=== PATIENT | male | born 1995 | race Hispanic/Latino ===

== ENCOUNTER 2018-07-02 23:18 | Emergency (ER) | payer SELFPAY ==
--- OUTSIDE RECORDS SUMMARY | 2018-07-02 23:21 | XMS REPORT | Summary of Care ---
:1995 Author Encounter [facility] Pedrito(SERGEY) [id number] Date(s): 11/04/14 - 11/05/[address] Professional Services provided by [facility] [place] [address]- Discharge Disposition: Not Seen Physician Attending: Vin Bush MD Vital Signs Most recent to oldest [Reference Range]: 1 Height 170.18 cm (11/04/14 6:43 PM) Temperature Oral [96.4-99.1 DegF] 98.1 DegF (11/04/14 6:43 PM) Blood Pressure [90-140/60-90 mmHg] 123/74 mmHg (11/04/14 6:43 PM) Respiratory Rate [14-20 BRMIN] 18 BRMIN (11/04/14 6:43 PM) Peripheral Pulse Rate [60-100 bpm] 101 bpm *HI* (11/04/14 6:43 PM) Weight 59.091 kg (11/04/14 6:43 PM) Body Mass Index 20.4 m2 (11/04/14 6:43 PM) Problem List Condition Effective Dates Status Health Status Informant Diabetes mellitus(Confirmed) Resolved Allergies, Adverse Reactions, Alerts Substance Reaction Severity Status NKDA Active Medications No data available for this section Results No data available for this section Immunizations No data available for this section Procedures No data available for this section Social History No data available for this section Assessment and Plan No data available for this section
--- OUTSIDE RECORDS SUMMARY | 2018-07-02 23:21 | XMS REPORT | Continuity of Care Document ---
:1995 Author Organization Interface Problems Problem Status Onset Classification Date Comments Source Date Reported HYPERGLYCEMIA Active 05/19/20 [facility] INTRACTABLE Active 05/19/20 ABDOMINAL PAIN, [address] [place] [address] LEUKOCYTOSIS LWBS Active 11/05/[address] HYPERGLYCEMIA, Active 03/05/20 KETOSIS W/O 13 [facility] ACIDOSIS HIGH BLOOD SUGAR Active 03/05/20 13 [facility] Diabetes Resolved Problem 05/22/2017 [facility], [place] UNSPECIFIED Active ABDOMINAL PAIN [facility] ELEVATED WHITE Active BLOOD CELL [facility] COUNT, UNSPECI HYPERGLYCEMIA, Active UNSPECIFIED [facility] Medications Medication Details Route Status Patient Ordering Order Source Instructions Provider Date Metronidazole 500 mg=1 tab, Active 500 MG Oral PO, Q8H, X 7 2016 [facility] Tablet [Flagyl] day, # 21 tab, 0 Refill(s) ciprofloxacin 500 mg=1 tab, Active 500 mg oral PO, Q12H, X 7 2016 [facility] tablet day, # 14 tab, 0 Refill(s) Ativan 1 mg, 1 tab, Inactive Route: PO, 2016 [facility] Drug form: TAB, TID, Dosing Weight 49.545, kg, PRN Anxiety, Start date: 05/19/17 11:50:00 MANAGER SQL, Duration: 30 day, Stop date: 06/18/17 11:49:00 CSTNotes: (Same as: Ativan) morphine Sulfate 4 mg, 1 mL, Inactive Route: IV, 2016 [facility] Drug form: SOLN, ONCE, Start date: 05/19/17 10:22:00 MANAGER SQL, Stop date: 05/19/17 10:22:00 CSTNotes: (Same as:MORPhine Sulfate) Morphine 2 mg, 1 mL, Inactive Route: IVP, 2016 [facility] Drug form: SOLN, Q2H, Dosing Weight 49.545, kg, PRN Pain Score 7-10, Start date: 05/19/17 9:58:00 MANAGER SQL, Duration: 30 day, Stop date: 06/18/17 9:57:00 MANAGER SQL Dilaudid 0.5 mg, Route: Inactive IVP, ONCE, 2016 [facility] Dosing Weight 49.545, kg, Priority: STAT, Start date: 05/19/17 9:58:00 MANAGER SQL, Stop date: 05/19/17 9:58:00 MANAGER SQL Promethazine 12.5 mg, 1 Inactive tab, Route: 2016 [facility] PO, Drug form: TAB, Q6H, Dosing Weight 49.545, kg, PRN Nausea & Vomiting, Start date: 05/19/17 9:58:00 MANAGER SQL, Duration: 30 day, Stop date: 06/18/17 9:57:00 CSTNotes: (Same as: Phenergan) Zosyn 3.375 gm, Inactive Route: IVPB, 2016 [facility] [id number], Dosing Weight 49.545, kg, Start date: 05/19/17 8:00:00 MANAGER SQL, Duration: 7 day, Stop date: 05/26/17 0:00:00 MANAGER SQL, ABX Indication: Intra-abdomina l InfectionNotes : (Same as: Zosyn) Dosing based on Piperacillin component MEDICATION WASTE Product Size: 3375 mg Product Wasted: ___ mg Metoclopramide 10 mg=1 tab, Inactive 10 MG Oral PO, QID, # 28 2016 [facility] Tablet [Reglan] tab, 0 Refill(s) NovoLog 15 unit, Active SUB-Q, 2016 [facility] TID-Before Meals, 0 Refill(s) normal saline 1,000 mL, Inactive 0.9% IV 1,000 mL Rate: 120 2016 [facility] ml/hr, Infuse over: 8.3 hr, Route: IV, Dosing Weight 49.545 kg, Total Volume: 1,000, Start date: 05/19/17 7:48:00 MANAGER SQL, Duration: 30 day, Stop date: 06/18/17 7:47:00 MANAGER SQL, 1.53, m2 morphine Sulfate 6 mg, 3 mL, Inactive Route: PO, 2016 [facility] Drug form: SOLN, Q4H, PRN Pain Score 7-10, Start date: 05/19/17 7:04:00 MANAGER SQL, Duration: 30 day, Stop date: 06/18/17 7:03:00 CSTNotes: (Same as:MORPhine Sulfate) Insulin Glargine 30 unit, 0.3 Inactive 100 UNT/ML mL, Route: 2016 [facility] Injectable SUB-Q, Drug Solution form: SOLN, [Lantus] Daily, Dosing Weight 49.545, kg, Priority: NOW, Start date: 05/19/17 6:32:00 MANAGER SQL, Duration: 30 day, Stop date: 06/17/17 9:00:00 CSTNotes: (Same as: Lantus) Do not hold insulin without contacting prescriber WASTE: F/P - Black; E - Municipal Trash Bin "single patient use only" Saline Flush 10 ml, Route: Inactive 0.9% IVP, Drug 2016 [facility] Form: INJ, Dosing Weight 49.545, kg, PRN, PRN Line Flush, Start date: 05/19/17 6:31:00 MANAGER SQL, Duration: 30 day, Stop date: 06/18/17 6:30:00 CSTNotes: (Same as: BD Posiflush) Ondansetron 4 mg, 2 mL, Inactive Route: IVP, 2016 [facility] Drug form: INJ, Q6H, Dosing Weight 49.545, kg, PRN Nausea & Vomiting, Start date: 05/19/17 6:31:00 MANAGER SQL, Duration: 30 day, Stop date: 06/18/17 6:30:00 CSTNotes: (Same as: Zofran) MEDICATION WASTE Product Size: 4 mg Product Wasted: ___ mg Acetaminophen 2 tab, Route: Inactive 325 MG / PO, Drug Form: 2016 [facility] Hydrocodone TAB, Dosing Bitartrate 5 MG Weight 49.545, Oral Tablet kg, Q4H, PRN Pain Score 7-10, Start date: 05/19/17 6:31:00 MANAGER SQL, Duration: 30 day, Stop date: 06/18/17 6:30:00 CSTNotes: (Same as: Abie 325/5) Do not exceed 4gm/day of acetaminophen. Morphine 2 mg, Route: Inactive IVP, Q4H, 2016 [facility] Dosing Weight 49.545, kg, PRN Pain Score 7-10, Start date: 05/19/17 6:31:00 MANAGER SQL, Duration: 30 day, Stop date: 06/18/17 6:30:00 MANAGER SQL Sodium Chloride 1,000 mL, Inactive 0.9% IV 1,000 mL Rate: 125 2016 [facility] ml/hr, Infuse over: 8 hr, Route: IV, Dosing Weight 49.545 kg, Total Volume: 1,000, Start date: 05/19/17 6:31:00 MANAGER SQL, Duration: 30 day, Stop date: 06/18/17 6:30:00 MANAGER SQL, 1.53, m2 Insulin Lispro 2 unit, 0.02 Inactive mL, Route: 2016 [facility] SUB-Q, Drug form: SOLN, Bedtime, Dosing Weight 49.545, kg, PRN Blood Glucose Results, Start date: 05/19/17 6:31:00 MANAGER SQL, Duration: 30 day, Stop date: 06/18/17 6:30:00 CSTNotes: Roll in palms of hands gently; Do not shake `vigorously. (Same as: Humalog ) "Single Patient Use Only " WASTE: F/P - Black; E - Municipal Trash Bin Stable for 28 days at room temperature. Expires in days from Date Glucagon 1 mg, Route: Inactive IM, Drug form: 2016 [facility] PDR/INJ, PRN, Dosing Weight 49.545, kg, PRN Blood Glucose Results, Start date: 05/19/17 6:31:00 MANAGER SQL, Duration: 30 day, Stop date: 06/18/17 6:30:00 MANAGER SQL Dextrose 50% 25 gm, 50 mL, Inactive Syringe Route: IVP, 2016 [facility] Drug Form: INJ, Dosing Weight 49.545, kg, PRN, PRN Blood Glucose Results, Start date: 05/19/17 6:31:00 MANAGER SQL, Duration: 30 day, Stop date: 06/18/17 6:30:00 MANAGER SQL Lorazepam 1 mg, Route: Inactive IVP, Drug 2016 [facility] form: INJ, ONCE, Dosing Weight 49.545, kg, Priority: STAT, Start date: 05/19/17 5:52:00 MANAGER SQL, Stop date: 05/19/17 5:52:00 MANAGER SQL Morphine 4 mg, Route: Inactive IVP, ONCE, 2016 Dosing Weight 49.545, kg, Priority: STAT, Start date: 05/19/17 3:46:00 MANAGER SQL, Stop date: 05/19/17 3:46:00 MANAGER SQL Zofran 4 mg, Route: Inactive IVP, Drug 2016 [facility] form: INJ, ONCE, Dosing Weight 49.545, kg, Priority: STAT, Start date: 05/19/17 3:46:00 MANAGER SQL, Stop date: 05/19/17 3:46:00 MANAGER SQL Sodium Chloride 1,486.35 mL, Inactive 0.9% (Bolus) IV 2,000 ml/hr, 2016 [facility] Route: IV, ONCE, Priority: STAT, Dosing Weight 49.545 kg, Start date: 05/19/17 1:54:00 MANAGER SQL, Stop date: 05/19/17 1:54:00 MANAGER SQL, Sepsis dose. Allergies, Adverse Reactions, Alerts Substance Category Reaction Severity Reaction Status Date Comments Source type Reported Immunizations Immunization Date Given Site Status Last Updated Comments Source Results Order Name Results Value Reference Date Interpretation Comments Source Range DRUG U Phencyc Negative Negative 05/19 [facility] *NA* (05/19/17 12:41 PM) DRUG UDS Note See Note 05/19 [facility] (05/19/17 12:41 PM) DRUG U Benzodia Negative Negative 05/19 [facility] *NA* (05/19/17 12:41 PM) DRUG U Amph Scr Negative Negative 05/19 [facility] *NA* (05/19/17 12:41 PM) DRUG U Cat Scr Negative Negative 05/19 [facility] *NA* (05/19/17 12:41 PM) DRUG U Opiate Scr Positive Negative 05/19 [facility] *ABN* (05/19/17 12:41 PM) DRUG U Cannab Scr Positive Negative 05/19 [facility] *ABN* (05/19/17 12:41 PM) DRUG U Cocaine Negative Negative 05/19 SCREEN Scr [facility] *NA* (05/19/17 12:41 PM) URINE AND UA CaOx Michelle Occasional None Seen 05/19 STOOL /HPF /HPF [facility] URINE AND UA WBC null 0 - 5 05/19 [facility] URINE AND UA Leuk Est Negative Negative 05/19 [facility] (05/19/17 3:31 AM) URINE AND UA RBC 3 /HPF 0 - 2 05/19 [facility] URINE AND UA Nitrite Negative Negative 05/19 [facility] (05/19/17 3:31 AM) URINE AND UA Blood Negative Negative 05/19 [facility] (05/19/17 3:31 AM) URINE AND UA Bili Negative Negative 05/19 [facility] *NA* (05/19/17 3:31 AM) URINE AND UA Spec Grav 1.044 <=1.030 05/19 [facility] URINE AND UA Glucose 500 mg/dL Negative 05/19 [facility] mg/dL [facility] URINE AND UA Ketones Negative Negative 05/19 [facility] mg/dL mg/dL [facility] URINE AND UA pH 5.0 5.0 - 8.0 05/19 [facility] URINE AND UA Protein Negative Negative 05/19 [facility] mg/dL mg/dL [facility] URINE AND UA <=1.0 0.1 - 1.0 05/19 STOOL Urobilinogen mg/dL [facility] URINE AND UA Color Ltyellow 05/19 [facility] URINE AND UA Sq Epi None Seen 05/19 [facility] URINE AND UA Turbidity Clear Clear 05/19 [facility] (05/19/17 3:31 AM) Gallbladde Gallbladder Gallbladder scan HIDA wo meds NM 05/19 - r scan scan HIDA wo - [facility] HIDA wo meds NM meds NM CLINICAL HX: - bile leak?. Read by: Julien Daniel MD Dictated Date/time: 05/19/17 13:59 Electronically Signed by: Julien Daniel MD 05/19/17 14:02 FINAL REPORT COMPARISON: CT abdomen pelvis 05/19/2017 TECHNIQUE: 6 mCi of [id number] were administered intravenously and images obtained in anterior projection. IV Site: Right Antecubital FINDINGS: Image performed at 5 minutes and subsequently 2 images performed at 4 hours are submitted for review. The full dynamic images performed at every 5 minutes for the 1st hour are not available du e to patient's complaints of severe pain and determination of scan. On the 5 minute image, there is homogeneous tracer activity in the liver. On the 4 hour image, there is tracer activity in the small and large bowel. No tracer is visualized in the peritoneum. IMPRESSION: Evaluation is limited due to incomplete nature of the study. On the available images, there is no evidence for bile leak. SL: [id number] CHEM PANEL Ketone 0.15 <=0.27 05/19 Quantitative mmol/L mmol/L [facility] CHEM PANEL eGFR 155 05/19 Result Comment: The eGFR is calculated using the CKD-EPI formula. In most young, healthy individuals the eGFR will be >90 mL/ min/1.73m2. The eGFR declines with age. An eGFR of 60-89 may be normal in mL/min/1.7 some populations, particularly the elderly, for whom the CKD-EPI formula has not been extensively validated. Use of the eGFR is not recommended in the following populations: [facility] 3m2 Individuals with unstable creatinine concentrations, including patients and those with serious co-morbid conditions. Patients with extremes in muscle mass or diet. The data above are obtained from the National Kidney Disease Education Program (NKDEP) which additionally recommends that when the eGFR is used in patients with extremes of body mass index for purposes of drug dosing, the eGFR should be multiplied by the estimated BMI. CHEM PANEL Alk Phos 201 unit/L 39 - 136 05/19 [facility] CHEM PANEL Bili Total 0.6 mg/dL 0.2 - 1.3 05/19 [facility] CHEM PANEL ALT 63 unit/L 0 - 65 05/19 [facility] CHEM PANEL AST 10 unit/L 0 - 37 05/19 [facility] CHEM PANEL Albumin Lvl 3.4 g/dL 3.5 - 5.0 05/19 [facility] CHEM PANEL Total 6.5 g/dL 6.4 - 8.4 05/19 [facility] CHEM PANEL Calcium Lvl 8.2 mg/dL 8.5 - 10.5 05/19 [facility] CHEM PANEL Glucose Lvl 281 mg/dL 70 - 99 05/19 [facility] CHEM PANEL Potassium 3.7 meq/L 3.5 - 5.1 05/19 [facility] Lvl /2016 [facility] CHEM PANEL Creatinine 0.48 mg/dL 0.50 - 05/19 [facility] Lvl 1.40 [facility] CHEM PANEL Sodium Lvl 139 meq/L 135 - 145 05/19 [facility] CHEM PANEL BUN 15 mg/dL 7 - 22 05/19 [facility] CHEM PANEL CO2 24 meq/L 24 - 32 05/19 [facility] CHEM PANEL Chloride Lvl 106 meq/L 95 - 109 05/19 [facility] CHEM PANEL AGAP 12.7 meq/L 10.0 - 05/19 [facility] 20.0 [facility] CHEM PANEL A/G Ratio 1.1 0.7 - 1.6 05/19 [facility] CHEM PANEL B/C Ratio 31 6 - 25 05/19 [facility] CHEM PANEL Globulin 3.1 g/dL 2.7 - 4.2 05/19 [facility] CHEM PANEL Lipase Lvl 177 unit/L 73 - 393 05/19 [facility] HEMATOLOGY Segs 79.4 % 45.0 - 05/19 [facility] 75.0 [facility] HEMATOLOGY Lymphocytes 13.0 % 20.0 - 05/19 [facility] 40.0 [facility] HEMATOLOGY Monocytes # 0.7 K/CMM 0.0 - 0.8 05/19 [facility] HEMATOLOGY Eosinophils 2.3 % 0.0 - 4.0 05/19 [facility] HEMATOLOGY Basophils 0.4 % 0.0 - 1.0 05/19 [facility] HEMATOLOGY Segs-Bands # 12.1 K/CMM 1.5 - 8.1 05/19 [facility] HEMATOLOGY Lymphocytes 2.0 K/CMM 1.0 - 5.5 05/19 [facility] # /2016 [facility] HEMATOLOGY Monocytes 4.9 % 2.0 - 12.0 05/19 [facility] HEMATOLOGY Eosinophils 0.3 K/CMM 0.0 - 0.5 05/19 [facility] /2016 [facility] HEMATOLOGY Basophils # 0.1 K/CMM 0.0 - 0.2 05/19 [facility] HEMATOLOGY RBC 3.20 M/CMM 4.70 - 05/19 [facility] 6.10 [facility] HEMATOLOGY WBC 15.2 K/CMM 3.7 - 10.4 05/19 [facility] HEMATOLOGY MCH 30.7 pg 27.0 - 05/19 MH 31.0 [facility] MCHC 33.9 g/dL 32.0 - 05/19 MH 36.0 [facility] HEMATOLOGY Platelet 347 K/CMM 133 - 450 05/19 [facility] MPV 7.0 fL 7.4 - 10.4 05/19 [facility] RDW 13.4 % 11.5 - 05/19 MH 14.5 [facility] Hgb 9.8 g/dL 14.0 - 05/19 MH 18.0 [facility] Hct 29.0 % 42.0 - 05/19 MH 54.0 [facility] MCV 90.4 fL 80.0 - 05/19 94.0 [facility] ED ED CT ABDOMEN AND PELVIS WITH CONTRAST 05/19 - Abdomen/Pe Abdomen/Pelv /2016 - [facility] lvis IV is IV contrast contrast only CT only CT INDICATION: Generalized abdominal pain, laparoscopic cholecystectomy 7 days postoperative [address] dlp 890.06mGy-cm - abdominal pain, lap sammy on ---cramping x 1 wk hx of DM type 1, bs Read by: Jed Crespo MD 370 per EMS, Was seen in ER yx \\T\\ unable to get prescription filled due to money. cholecystectomy 7 days ago Dictated Date/time: 05/19/17 03:10 Electronically Signed by: Jed Crespo MD 05/19/17 03:21 FINAL REPORT COMPARISON: None DISCUSSION: ABDOMEN: There is no consolidation of the visible lung bases. Cholecystectomy clips are in place. The liver is enlarged, measuring 20 cm in sagittal length. Spleen , pancreas, adrenal glands, and kidneys appear n ormal. The stomach and bowel loops, including the appendix, are unremarkable. There is mild pneumoperitoneum and mild ascites, presumably secondary to recent laparoscopic surgery. No abnormal fluid merlene ections are seen. The abdominal aorta is patent and normal in caliber. PELVIS: The bladder and prostate are unremarkable. No pelvic mass or lymphadenopathy are identified. BONES: No acute bony abnormalities are seen. IMPRESSION: 1. Mild pneumoperitoneum and mild ascites are presumably secondary to recent laparoscopic surgery. Short-term follow-up abdominal radiography is recommended to demonstrate resolution of pneumoperitoneum. 2. Otherwise, no acute abdominal or pelvic abnormalities are visualized. 3. Hepatomegaly is noted. SL:16 Vital Signs Vital Sign Value Date Comments Source Respitory Rate 17 05/19/2017 [facility] Systolic (mm Hg) 121 05/19/2017 [facility] Diastolic (mm Hg) 76 05/19/2017 [facility] Temperature Oral (F) 97.6 F 05/19/2017 [facility] Heart Rate 94 05/19/2017 [facility] Weight 49.545 05/19/2017 [facility] Height 170.18 cm 05/19/2017 [facility] BMI Calculated 17.11 05/19/2017 [facility] Systolic (mm Hg) 109 05/19/2017 [facility] Diastolic (mm Hg) 72 05/19/2017 [facility] Respitory Rate 18 05/19/2017 [facility] Temperature Oral (F) 97.9 F 05/19/2017 [facility] Heart Rate 103 05/19/2017 [facility] Temperature Oral (F) 97.9 F 05/19/2017 [facility] Heart Rate 88 05/19/2017 [facility] Respitory Rate 19 05/19/2017 [facility] Systolic (mm Hg) 135 05/19/2017 [facility] Diastolic (mm Hg) 94 05/19/2017 [facility] Height 170.18 cm 05/19/2017 [facility] BMI Calculated 17.11 05/19/2017 [facility] Weight 49.545 05/19/2017 [facility] Temperature Oral (F) 98.1 F 11/04/2014 [facility] Weight 59.091 11/04/2014 [facility] BMI Calculated 20.4 11/04/2014 [facility] Height 170.18 cm 11/04/2014 [facility] Systolic (mm Hg) 123 11/04/2014 [facility] Diastolic (mm Hg) 74 11/04/2014 [facility] Respitory Rate 18 11/04/2014 [facility] Heart Rate 101 11/04/2014 [facility] Encounters Location Location Encounter Encounter Reason Attending ADM DC Status Source Details Type Number For Provider Date Date Visit Emergency [id number] MURIEL 03/05 03/05 Active [facility]RAIG /2012 [facility] Emergency [id number] Vin 11/04 11/05 [facility] /2014 [facility] Observation [id number] Usama Platt 05/19 05/19 [facility] /2016 [facility] Procedures Procedure Code Date Perfomer Comments Source Laparoscopic [id number] [facility]
--- OUTSIDE RECORDS SUMMARY | 2018-07-02 23:21 | XMS REPORT ---
:1995 [facility] [address] [place] [address] [address] [place] [address] Care Team Providers Name Role Phone MATILDA KOHLER Unavailable Unavailable Payers Payer Name Policy Type Policy Number Effective Date Expiration Date Problems This patient has no known problems. Allergies, Adverse Reactions, Alerts Allergy Allergy Status Severity Reaction(s) Onset Inactive Treating Comments Name Type Date Date Clinician No Known DA Active U 2018-04 Allergies -24 00:00:0 0 No Known DA Active U 2018-04 Allergies -20 00:00:0 0 Medications This patient has no known medications. Results Test Description Test Time Test Comments Text Results Atomic Results Result Comments GASTRIC EMPTYING [facility] [address] [place] [address] Patient Name: ELVIS FOX MR #: [id number] : 1995 Age/Sex: 22/M Req #: [id number] Adm Physician: MATILDA KOHLER MD Ordered by: GIA SMITH MD Report #: [id number] Location: MED/SURG Room/Bed: [facility] Procedure: [id number] NM/GASTRIC EMPTYING Exam Date: 05/08/17 Exam Time: 0900 REPORT STATUS: Signed Solid-phase gastric emptying study Reason for examination: Chronic nausea and vomiting x1 year. The protocol used for this study is based on the Consensus Recommendations for Gastric Scintigraphy by the [employer] and the Society of Nuclear Medicine. Clinical information: The patient is diabetic; blood glucose this morning was 279 mg/dL. The patient has not had previous gastrointestinal surgery. The patient is not on any medications expected to affect gastric motility. The patient has been fasting for at least 6 hours prior to this exam. Radiopharmaceutical: Tc-99m sulfur colloid 1 mCi Report: The radiopharmaceutical was added to 1/2 cup egg whites that were then prepared and served with 2 pieces of white bread toasted, 30 grams of jam and 4 ounces of water. The patient took the meal orally without difficulty. Images were obtained of the abdomen in the anterior and posterior projections at 10 minutes post the meal and at 1and 2 hours. Uptake was determined from the geometric mean of the anterior and posterior counts and the counts were corrected for decay of the radiolabel. The percent gastric retention of the labeled meal at: 1 hour was 92% (normal 30-90%) 2 hours was 89% (normal <60%; if value is greater than 55%, study is abnormal) Impression: Markedly prolonged gastric emptying. Findings support the clinical diagnosis of severe gastroparesis. Signed by: Dr. lAis Broussard M.D. on 05/08/2017 9:26 PM Dictated By: ALIS BROUSSARD MD 25 Transcribed By: JESI on 05/08/172125 COPY TO: GIA SMITH MD [place] [address] Patient Name: ELVIS FOX MR #: [id number] : 1995 Age/Sex: 22/M Req #: [id number] [facility] Physician: MATILDA KOHLER MD Ordered by: GIA SMITH MD Report #: [id number] Location: MED/SURG Room/Bed: [facility] Procedure: [id number] US/US ABDOMEN COMPLETE Exam Date: 05/08/17 Exam Time: 1608 REPORT STATUS: Signed EXAM: Complete Abdominal Ultrasound INDICATION: Abdominal pain and vomiting. Gastroparesis. COMPARISON: None. TECHNIQUE: Transverse and longitudinal images of the upper abdomen were obtained. FINDINGS: Liver: Size: 12.6 cm in the right midclavicular line, normal Appearance: Normal echogenicity, smooth contour Mass: No focal masses Spleen: Size: 9.7 cm in length, normal Echogenicity: Normal Mass: No focal masses Gallbladder: Stones/Sludge: No shadowing mobile echogenic foci within the gallbladder lumen. Wall: 0.3 cm Appearance: No wall thickening, pericholecystic fluid or hydrops. Sonographic Hong's Sign: Negative Bile Ducts: Intrahepatic Ducts: No dilatation Extrahepatic Ducts: Common bile duct measures 0.4 cm, no dilatation Pancreas: Visualized portions of the pancreatic head, neck and proximal body are normal. Kidneys: Length: Right 12.6 cm Left 11.2 cm Echogenicity: Normal Collecting System: No hydronephrosis Stone: None Cyst/Mass: None Vessels: Aorta: Visualized portions are normal Inferior Vena Cava: Visualized portions are normal Main Portal Vein: 0.9 cm, normal size with hepatopetal flow. Free Fluid: No ascites or pleural effusion IMPRESSION: Small volume gallbladder sludge versus vessel likely nonshadowing floating gallstones. Otherwise unremarkable study. Signed by: Dr. Thompson Villalobos M.D. on 05/08/2017 5:17 PM Dictated By: MEGAN VILLALOBOS MD, MD 16 Transcribed By: JESI on 05/08/171716 COPY TO: GIA SMITH MD CT ABDOMEN/PELVIS [facility] [address] [place] [address] Patient Name: ELVIS FOX MR #: [id number] : 1995 Age/Sex: 22/M Req #: [id number] Adm Physician: Ordered by: HANK JADE MD Report #: [id number] Location: ER Room/Bed: Procedure: [id number] CT/CT ABDOMEN/PELVIS WO Exam Date: 05/05/17 Exam Time: 1555 REPORT STATUS: Signed PROCEDURE: CT ABDOMEN AND PELVIS WITHOUT CONTRAST COMPARISON: None. INDICATIONS: ABDOMINAL PAIN, history of gastroparesis. TECHNIQUE: Axial CT images through the abdomen and pelvis were obtained without oral or IV contrast. Coronal and sagittal reformations were created. FINDINGS: Right kidney: No renal calculus, cortical mass, or hydronephrosis. No perinephric inflammation. Left kidney: No renal calculus, cortical mass, or hydronephrosis. No perinephric inflammation. Bladder/ureters: No ureteral dilatation or calculus. The bladder is normal. Liver: Normal attenuation. No evidence of mass Spleen: Normal size and attenuation without mass Biliary: The gallbladder is present and appears normal. No biliary ductal dilatation. Pancreas: Normal attenuation without mass or ductal dilatation. Adrenal Glands: No evidence of mass Vasculature: Aorta and IVC are normal in diameter. GI: The stomach is normal in appearance and not dilated. The large bowel is distended with stool. No mural thickening or pericolonic inflammation. Small bowel is normal in diameter with normal wall thickness. The appendix is normal. Peritoneum/Retroperitoneum: No lymphadenopathy, free fluid, or fluid collection. There are tiny phleboliths in the right pelvis, adjacent to the right prostate lobe. These are inferior to the expected location of the UVJ. Reproductive organs: Normal. MSK: Unremarkable for age. Lung bases: Clear. The visualized portion of the mediastinum are normal. CONCLUSION: Large amount of stool throughout the colon without evidence of inflammation. No bowel or gastric obstruction. Normal appendix. No renal calculus or obstructive uropathy. Dictated by: Saurabh Perez M.D. on 05/05/2017 at 16:24 Electronically approved by: Saurabh Perez M.D. on 05/05/2017 at 16:24 Dictated By: SAURABH PEREZ MD 1624 Transcribed By: MAXIMILIANO on 05/05/17 1627 COPY TO: HANK JADE MD
--- OUTSIDE RECORDS SUMMARY | 2018-07-02 23:21 | XMS REPORT | Summary of Care ---
:1995 Author Organization [facility] Address [address] [place], [place] [address]- Encounter [facility](SERGEY) [id number] Date(s): 05/19/17 - 05/19/17 [facility] [address] [place] [address]- Discharge Disposition: Home or Self Care Attending Physician: Usama Platt MD Admitting Physician: Usama Platt MD Vital Signs Most recent to oldest 1 2 3 [Reference Range]: Height 170.18 cm 170.18 cm (05/19/17 7:26 AM) (05/19/17 12:15 AM) Temperature Oral 97.6 DegF 97.9 DegF 97.9 DegF [96.4-99.1 DegF] (05/19/17 11:03 AM) (05/19/17 7:13 AM) (05/19/17 6:10 AM) Blood Pressure 121/76 mmHg 109/72 mmHg 135/94 mmHg [90-140/60-90 mmHg] (05/19/17 11:03 AM) (05/19/17 7:13 AM) (05/19/17 6:10 AM ) Respiratory Rate [14-20 17 BRMIN 18 BRMIN 19 BRMIN BRMIN] (05/19/17 11:03 AM) (05/19/17 7:13 AM) (05/19/17 6:10 AM) Peripheral Pulse Rate 94 bpm 103 bpm 88 bpm [60-100 bpm] (05/19/17 11:03 AM) *HI* (05/19/17 6:10 AM) (05/19/17 7:13 AM) Weight 49.545 kg 49.545 kg (05/19/17 7:26 AM) (05/19/17 12:15 AM) Body Mass Index 17.11 m2 17.11 m2 (05/19/17 7:26 AM) (05/19/17 12:15 AM) Problem List Condition Effective Dates Status Health Status Informant Diabetes mellitus(Confirmed) Resolved Allergies, Adverse Reactions, Alerts Substance Reaction Severity Status NKDA Active Medications acetaminophen-hydrocodone 325 mg-5 mg oral tablet 2 tab, Route: PO, Drug Form: TAB, Dosing Weight 49.545, kg, Q4H, PRN Pain Score 7-10, Start date: 05/19/17 6:31:00 AUTOMOTIVE REPAIR TECHNICIAN, Duration: 30 day, Stop date: 06/18/17 6: 30:00 AUTOMOTIVE REPAIR TECHNICIAN Notes: (Same as: [place] 325/5) Do not exceed 4gm/day of acetaminophen. Start Date: 05/19/17 Stop Date: 05/19/17 Status: DiscontinuedAtivan 1 mg, 1 tab, Route: PO, Drug form: TAB, TID, Dosing Weight 49.545, kg, PRN Anxiety, Start date: 05/19/17 11:50:00 AUTOMOTIVE REPAIR TECHNICIAN, Duration: 30 day, Stop date: 11:49:00 AUTOMOTIVE REPAIR TECHNICIAN Notes: (Same as: Ativan) Start Date: 05/19/17 Stop Date: 05/19/17 Status: Discontinuedciprofloxacin 500 mg oral tablet 500 mg=1 tab, PO, Q12H, X 7 day, # 14 tab, 0 Refill(s) Start Date: 05/19/17 Stop Date: 05/26/17 Status: OrderedDextrose 50% Syringe 25 gm, 50 mL, Route: IVP, Drug Form: INJ, Dosing Weight 49.545, kg, PRN, PRN Blood Glucose Results, Start date: 05/19/17 6:31:00 AUTOMOTIVE REPAIR TECHNICIAN, Duration: 30 day, Stop date: 06/18/17 6:30:00 AUTOMOTIVE REPAIR TECHNICIAN Start Date: 05/19/17 Stop Date: 05/19/17 Status: DiscontinuedDextrose 50% Syringe 12.5 gm, 25 mL, Route: IVP, Drug Form: INJ, Dosing Weight 49.545, kg, PRN, PRN Blood Glucose Results, Start date: 05/19/17 6:31:00 AUTOMOTIVE REPAIR TECHNICIAN, Duration: 30 day, Stop date: 06/18/17 6:30:00 AUTOMOTIVE REPAIR TECHNICIAN Start Date: 05/19/17 Stop Date: 05/19/17 Status: DiscontinuedDilaudid 0.5 mg, Route: IVP, ONCE, Dosing Weight 49.545, kg, Priority: STAT, Start date: 05/19/17 9:58:00 AUTOMOTIVE REPAIR TECHNICIAN, Stop date: 05/19/17 9:58:00 AUTOMOTIVE REPAIR TECHNICIAN Start Date: 05/19/17 Stop Date: 05/19/17 Status: DeletedFlagyl 500 mg oral tablet 500 mg=1 tab, PO, Q8H, X 7 day, # 21 tab, 0 Refill(s) Start Date: 05/19/17 Stop Date: 05/26/17 Status: Orderedglucagon 1 mg, Route: IM, Drug form: PDR/INJ, PRN, Dosing Weight 49.545, kg, PRN Blood Glucose Results, Startdate: 05/19/17 6:31:00 AUTOMOTIVE REPAIR TECHNICIAN, Duration: 30 day, Stop date: 06/18/17 6:30:00 AUTOMOTIVE REPAIR TECHNICIAN Start Date: 05/19/17 Stop Date: 05/19/17 Status: Discontinuedinsulin lispro 2 unit, 0.02 mL, Route: SUB-Q, Drug form: SOLN, Bedtime, Dosing Weight 49.545, kg, PRN Blood GlucoseResults, Start date: 05/19/17 6:31:00 AUTOMOTIVE REPAIR TECHNICIAN, Duration: 30 day , Stop date: 06/18/17 6:30:00 AUTOMOTIVE REPAIR TECHNICIAN Notes: Roll in palms of hands gently; Do not shake `vigorously. (Same as: Humalog )"Single Patient Use Only "WASTE: F/P - Black; E - Municipal Trash Bin Stable for 28 days at room temperature.Expiresin days from Date Start Date: 05/19/17 Stop Date: 05/19/17 Status: Discontinuedinsulin lispro 1 unit, 0.01 mL, Route: SUB-Q, Drug form: SOLN, Bedtime, Dosing Weight 49.545, kg, PRN Blood GlucoseResults, Start date: 05/19/17 6:31:00 AUTOMOTIVE REPAIR TECHNICIAN, Duration: 30 day , Stop date: 06/18/17 6:30:00 AUTOMOTIVE REPAIR TECHNICIAN Notes: Roll in palms of hands gently; Do not shake `vigorously. (Same as: Humalog )"Single Patient Use Only "WASTE: F/P - Black; E - Municipal Trash Bin Stable for 28 days at room temperature.Expiresin days from Date Start Date: 05/19/17 Stop Date: 05/19/17 Status: Discontinuedinsulin lispro 3 unit, 0.03 mL, Route: SUB-Q, Drug form: SOLN, TID-Before Meals, Dosing Weight 49.545, kg, PRN Blood Glucose Results, Start date: 05/19/17 6:31:00 AUTOMOTIVE REPAIR TECHNICIAN, Duration: 30 day, Stop date: 06/18/17 6:30:00 AUTOMOTIVE REPAIR TECHNICIAN Notes: Roll in palms of hands gently; Do not shake `vigorously. (Same as: Humalog )"Single Patient Use Only "WASTE: F/P - Black; E - Municipal Trash Bin Stable for 28 days at room temperature.Expiresin days from Date Start Date: 05/19/17 Stop Date: 05/19/17 Status: Discontinuedinsulin lispro 12 unit, 0.12 mL, Route: SUB-Q, Drug form: SOLN, TID-Before Meals, Dosing Weight 49.545, kg, PRN Blood Glucose Results, Start date: 05/19/17 6:31:00 AUTOMOTIVE REPAIR TECHNICIAN, Duration: 30 day, Stop date: 06/18/17 6:30:00 AUTOMOTIVE REPAIR TECHNICIAN Notes: Roll in palms of hands gently; Do not shake `vigorously. (Same as: Humalog )"Single Patient Use Only "WASTE: F/P - Black; E - Municipal Trash Bin Stable for 28 days at room temperature.Expiresin days from Date Start Date: 05/19/17 Stop Date: 05/19/17 Status: Discontinuedinsulin lispro 9 unit, 0.09 mL, Route: SUB-Q, Drug form: SOLN, TID-Before Meals, Dosing Weight 49.545, kg, PRN Blood Glucose Results, Start date: 05/19/17 6:31:00 AUTOMOTIVE REPAIR TECHNICIAN, Duration: 30 day, Stop date: 06/18/17 6:30:00 AUTOMOTIVE REPAIR TECHNICIAN Notes: Roll in palms of hands gently; Do not shake `vigorously. (Same as: Humalog )"Single Patient Use Only "WASTE: F/P - Black; E - Municipal Trash Bin Stable for 28 days at room temperature.Expiresin days from Date Start Date: 05/19/17 Stop Date: 05/19/17 Status: Discontinuedinsulin lispro 6 unit, 0.06 mL, Route: SUB-Q, Drug form: SOLN, TID-Before Meals, Dosing Weight 49.545, kg, PRN Blood Glucose Results, Start date: 05/19/17 6:31:00 AUTOMOTIVE REPAIR TECHNICIAN, Duration: 30 day, Stop date: 06/18/17 6:30:00 AUTOMOTIVE REPAIR TECHNICIAN Notes: Roll in palms of hands gently; Do not shake `vigorously. (Same as: Humalog )"Single Patient Use Only "WASTE: F/P - Black; E - Municipal Trash Bin Stable for 28 days at room temperature.Expiresin days from Date Start Date: 05/19/17 Stop Date: 05/19/17 Status: Discontinuedinsulin lispro 4 unit, 0.04 mL, Route: SUB-Q, Drug form: SOLN, Bedtime, Dosing Weight 49.545, kg, PRN Blood GlucoseResults, Start date: 05/19/17 6:31:00 AUTOMOTIVE REPAIR TECHNICIAN, Duration: 30 day , Stop date: 06/18/17 6:30:00 AUTOMOTIVE REPAIR TECHNICIAN Notes: Roll in palms of hands gently; Do not shake `vigorously. (Same as: Humalog )"Single Patient Use Only "WASTE: F/P - Black; E - Municipal Trash Bin Stable for 28 days at room temperature.Expiresin days from Date Start Date: 05/19/17 Stop Date: 05/19/17 Status: Discontinuedinsulin lispro 3 unit, 0.03 mL, Route: SUB-Q, Drug form: SOLN, Bedtime, Dosing Weight 49.545, kg, PRN Blood GlucoseResults, Start date: 05/19/17 6:31:00 AUTOMOTIVE REPAIR TECHNICIAN, Duration: 30 day , Stop date: 06/18/17 6:30:00 AUTOMOTIVE REPAIR TECHNICIAN Notes: Roll in palms of hands gently; Do not shake `vigorously. (Same as: Humalog )"Single Patient Use Only "WASTE: F/P - Black; E - Municipal Trash Bin Stable for 28 days at room temperature.Expiresin days from Date Start Date: 05/19/17 Stop Date: 05/19/17 Status: Discontinuedinsulin lispro 15 unit, 0.15 mL, Route: SUB-Q, Drug form: SOLN, TID-Before Meals, Dosing Weight 49.545, kg, PRN Blood Glucose Results, Start date: 05/19/17 6:31:00 AUTOMOTIVE REPAIR TECHNICIAN, Duration: 30 day, Stop date: 06/18/17 6:30:00 AUTOMOTIVE REPAIR TECHNICIAN Notes: Roll in palms of hands gently; Do not shake `vigorously. (Same as: Humalog )"Single Patient Use Only "WASTE: F/P - Black; E - Municipal Trash Bin Stable for 28 days at room temperature.Expiresin days from Date Start Date: 05/19/17 Stop Date: 05/19/17 Status: DiscontinuedLantus 100 units/mL 30 unit, 0.3 mL, Route: SUB-Q, Drug form: SOLN, Daily, Dosing Weight 49.545, kg , Priority: NOW, Start date: 05/19/17 6:32:00 AUTOMOTIVE REPAIR TECHNICIAN, Duration: 30 day, Stop date: 06/17/17 9:00:00 AUTOMOTIVE REPAIR TECHNICIAN Notes: (Same as: Lantus)Do not hold insulin without contacting prescriberWASTE: F/P - Black; E - Municipal Trash Bin "single patient use only" Start Date: 05/19/17 Stop Date: 05/19/17 Status: DiscontinuedLORazepam 1 mg, Route: IVP, Drug form: INJ, ONCE, Dosing Weight 49.545, kg, Priority: STAT , Start date: 05/19/17 5:52:00 AUTOMOTIVE REPAIR TECHNICIAN, Stop date: 05/19/17 5:52:00 AUTOMOTIVE REPAIR TECHNICIAN Start Date: 05/19/17 Stop Date: 05/19/17 Status: Completedmorphine Sulfate 2 mg, 1 mL, Route: IVP, Drug form: SOLN, Q2H, Dosing Weight 49.545, kg, PRN Pain Score 7-10, Start date: 05/19/17 9:58:00 AUTOMOTIVE REPAIR TECHNICIAN, Duration: 30 day, Stop date: 06/18/17 9:57:00 AUTOMOTIVE REPAIR TECHNICIAN Start Date: 05/19/17 Stop Date: 05/19/17 Status: Discontinuedmorphine Sulfate 2 mg, Route: IVP, Q4H, Dosing Weight 49.545, kg, PRN Pain Score 7-10, Start date : 05/19/17 6:31:00 AUTOMOTIVE REPAIR TECHNICIAN, Duration: 30 day, Stop date: 06/18/17 6:30:00 AUTOMOTIVE REPAIR TECHNICIAN Start Date: 05/19/17 Stop Date: 05/19/17 Status: Voided With Resultsmorphine Sulfate 4 mg, Route: IVP, ONCE, Dosing Weight 49.545, kg, Priority: STAT, Start date: 3:46:00 AUTOMOTIVE REPAIR TECHNICIAN, Stop date: 05/19/17 3:46:00 AUTOMOTIVE REPAIR TECHNICIAN Start Date: 05/19/17 Stop Date: 05/19/17 Status: Completedmorphine Sulfate 6 mg, 3 mL, Route: PO, Drug form: SOLN, Q4H, PRN Pain Score 7-10, Start date: 7:04:00 AUTOMOTIVE REPAIR TECHNICIAN, Duration: 30 day, Stop date: 06/18/17 7:03:00 AUTOMOTIVE REPAIR TECHNICIAN Notes: (Same as:MORPhine Sulfate) Start Date: 05/19/17 Stop Date: 05/19/17 Status: Discontinuedmorphine Sulfate 4 mg, 1 mL, Route: IV, Drug form: SOLN, ONCE, Start date: 05/19/17 10:22:00 AUTOMOTIVE REPAIR TECHNICIAN , Stop date: 05/19/1710:22:00 AUTOMOTIVE REPAIR TECHNICIAN Notes: (Same as:MORPhine Sulfate) Start Date: 05/19/17 Stop Date: 05/19/17 Status: Completednormal saline 0.9% IV 1,000 mL 1,000 mL, Rate: 120 ml/hr, Infuse over: 8.3 hr, Route: IV, Dosing Weight 49.545 kg, Total Volume: 1,000, Start date: 05/19/17 7:48:00 AUTOMOTIVE REPAIR TECHNICIAN, Duration: 30 day, Stop date: 06/18/17 7:47:00 AUTOMOTIVE REPAIR TECHNICIAN, 1.53, m2 Start Date: 05/19/17 Stop Date: 05/19/17 Status: DiscontinuedNovoLOG 15 unit, SUB-Q, TID-Before Meals, 0 Refill(s) Start Date: 05/19/17 Status: Orderedondansetron 4 mg, 2 mL, Route: IVP, Drug form: INJ, Q6H, Dosing Weight 49.545, kg, PRN Nausea & Vomiting, Start date: 05/19/17 6:31:00 AUTOMOTIVE REPAIR TECHNICIAN, Duration: 30 day, Stop date: 06/18/17 6:30:00 AUTOMOTIVE REPAIR TECHNICIAN Notes: (Same as: Zofran) MEDICATION WASTE Product Size: 4 mgProduct Wasted: ___ mg Start Date: 05/19/17 Stop Date: 05/19/17 Status: Discontinuedpromethazine 12.5 mg, 1 tab, Route: PO, Drug form: TAB, Q6H, Dosing Weight 49.545, kg, PRN Nausea & Vomiting,Start date: 05/19/17 9:58:00 AUTOMOTIVE REPAIR TECHNICIAN, Duration: 30 day, Stop date: 06/18/17 9:57:00 AUTOMOTIVE REPAIR TECHNICIAN Notes: (Same as: Phenergan) Start Date: 05/19/17 Stop Date: 05/19/17 Status: DiscontinuedReglan 10 mg oral tablet 10 mg=1 tab, PO, QID, # 28 tab, 0 Refill(s) Start Date: 05/19/17 Stop Date: 05/19/17 Status: DiscontinuedSaline Flush 0.9% 10 ml, Route: IVP, Drug Form: INJ, Dosing Weight 49.545, kg, PRN, PRN Line Flush , Start date: 05/19/17 6:31:00 AUTOMOTIVE REPAIR TECHNICIAN, Duration: 30 day, Stop date: 06/18/17 6:30: 00 AUTOMOTIVE REPAIR TECHNICIAN Notes: (Same as: BD Posiflush) Start Date: 05/19/17 Stop Date: 05/19/17 Status: DiscontinuedSodium Chloride 0.9% (Bolus) IV 1,486.35 mL, 2,000 ml/hr, Route: IV, ONCE, Priority: STAT, Dosing Weight 49.545 kg, Start date: 05/19/17 1:54:00 AUTOMOTIVE REPAIR TECHNICIAN, Stop date: 05/19/17 1:54:00 AUTOMOTIVE REPAIR TECHNICIAN, Sepsis dose. Start Date: 05/19/17 Stop Date: 05/19/17 Status: CompletedSodium Chloride 0.9% IV 1,000 mL 1,000 mL, Rate: 125 ml/hr, Infuse over: 8 hr, Route: IV, Dosing Weight 49.545 kg , Total Volume: 1,000, Start date: 05/19/17 6:31:00 AUTOMOTIVE REPAIR TECHNICIAN, Duration: 30 day, Stop date: 06/18/17 6:30:00 AUTOMOTIVE REPAIR TECHNICIAN, 1.53, m2 Start Date: 05/19/17 Stop Date: 05/19/17 Status: DiscontinuedZofran 4 mg, Route: IVP, Drug form: INJ, ONCE, Dosing Weight 49.545, kg, Priority: STAT , Start date: 05/19/17 3:46:00 AUTOMOTIVE REPAIR TECHNICIAN, Stop date: 05/19/17 3:46:00 AUTOMOTIVE REPAIR TECHNICIAN Start Date: 05/19/17 Stop Date: 05/19/17 Status: CompletedZosyn + Sodium Chloride 0.9% IV 100 mL 3.375 gm, Route: IVPB, ABXQ8H, Dosing Weight 49.545, kg, Start date: 05/19/17 8: 00:00 AUTOMOTIVE REPAIR TECHNICIAN, Duration:7 day, Stop date: 05/26/17 0:00:00 AUTOMOTIVE REPAIR TECHNICIAN, ABX Indication: Intra-abdominal Infection Notes: (Same as: Zosyn)Dosing based on Piperacillin component MEDICATION WASTE Product Size: 3375 mgProduct Wasted: ___ mg Start Date: 05/19/17 Stop Date: 05/19/17 Status: Discontinued Results ELECTROLYTES Most recent to oldest [Reference Range]: 1 Sodium Lvl [135-145 mEq/L] 139 mEq/L (05/19/17 2:05 AM) Potassium Lvl [3.5-5.1 mEq/L] 3.7 mEq/L (05/19/17 2:05 AM) Chloride Lvl [95-109 mEq/L] 106 mEq/L (05/19/17 2:05 AM) CO2 [24-32 mEq/L] 24 mEq/L (05/19/17 2:05 AM) AGAP [10.0-20.0 mEq/L] 12.7 mEq/L (05/19/17 2:05 AM) CHEM PANEL Most recent to oldest [Reference Range]: 1 Creatinine Lvl [0.50-1.40 mg/dL] 0.48 mg/dL *LOW* (05/19/17 2:05 AM) eGFR 155 mL/min/1.73m2 1 *NA* (05/19/17 2:05 AM) BUN [7-22 mg/dL] 15 mg/dL (05/19/17 2:05 AM) B/C Ratio [6-25] 31 *HI* (05/19/17 2:05 AM) Glucose Lvl [70-99 mg/dL] 281 mg/dL *HI* (05/19/17 2:05 AM) Total Protein [6.4-8.4 g/dL] 6.5 g/dL (05/19/17 2:05 AM) Albumin Lvl [3.5-5.0 g/dL] 3.4 g/dL *LOW* (05/19/17 2:05 AM) Globulin [2.7-4.2 g/dL] 3.1 g/dL (05/19/17 2:05 AM) A/G Ratio [0.7-1.6] 1.1 (05/19/17 2:05 AM) Calcium Lvl [8.5-10.5 mg/dL] 8.2 mg/dL *LOW* (05/19/17 2:05 AM) ALT [0-65 unit/L] 63 unit/L (05/19/17 2:05 AM) AST [0-37 unit/L] 10 unit/L (05/19/17 2:05 AM) Alk Phos [39-136 unit/L] 201 unit/L *HI* (05/19/17 2:05 AM) Bili Total [0.2-1.3 mg/dL] 0.6 mg/dL (05/19/17 2:05 AM) Lipase Lvl [73-393 unit/L] 177 unit/L (05/19/17 2:05 AM) Ketone Quantitative [<=0.27 mmol/L] 0.15 mmol/L (05/19/17 2:05 AM) 1Result Comment: The eGFR is calculated using the CKD-EPI formula. In most young , healthy individualsthe eGFR will be >90 mL/min/1.73m2. The eGFR declines with age. An eGFR of 60-89 may be normal insome populations, particularly the elderly, for whom the CKD-EPI formula has not been extensively validated. Use of the eGFR is not recommended in the following populations: Individuals with unstable creatinine concentrations, including patients and those with serious co-morbid conditions. Patients with extremes in muscle mass or diet. The data above are obtained from the National Kidney Disease Education Program ( NKDEP) which additionally recommends that when the eGFR is used in patients with extremes of body mass index for purposesof drug dosing, the eGFR should be multiplied by the estimated BMI.DRUG SCREEN Most recent to oldest [Reference Range]: 1 U Amph Scr [Negative] Negative *NA* (05/19/17 12:41 PM) U Cat Scr [Negative] Negative *NA* (05/19/17 12:41 PM) U Benzodia Scr [Negative] Negative *NA* (05/19/17 12:41 PM) U Cocaine Scr [Negative] Negative *NA* (05/19/17 12:41 PM) U Opiate Scr [Negative] Positive *ABN* (05/19/17 12:41 PM) U Phencyc Scr [Negative] Negative *NA* (05/19/17 12:41 PM) U Cannab Scr [Negative] Positive *ABN* (05/19/17 12:41 PM) UDS Note See Note (05/19/17 12:41 PM) URINE AND STOOL Most recent to oldest [Reference Range]: 1 UA Turbidity [Clear] Clear (05/19/17 3:31 AM) UA Color Ltyellow *NA* (05/19/17 3:31 AM) UA pH [5.0-8.0] 5.0 (05/19/17 3:31 AM) UA Spec Grav [<=1.030] 1.044 *HI* (05/19/17 3:31 AM) UA Glucose [Negative mg/dL] 500 mg/dL *ABN* (05/19/17 3:31 AM) UA Blood [Negative] Negative (05/19/17 3:31 AM) UA Ketones [Negative mg/dL] Negative mg/dL *NA* (05/19/17 3:31 AM) UA Protein [Negative mg/dL] Negative mg/dL (05/19/17 3:31 AM) UA Urobilinogen [0.1-1.0 mg/dL] <=1.0 mg/dL *NA* (05/19/17 3:31 AM) UA Bili [Negative] Negative *NA* (05/19/17 3:31 AM) UA Leuk Est [Negative] Negative (05/19/17 3:31 AM) UA Nitrite [Negative] Negative (05/19/17 3:31 AM) UA WBC [0-5 /HPF] <1 /HPF (05/19/17 3:31 AM) UA RBC [0-2 /HPF] 3 /HPF *HI* (05/19/17 3:31 AM) UA Sq Epi None Seen *NA* (05/19/17 3:31 AM) UA CaOx Michelle [None Seen /HPF] Occasional /HPF *NA* (05/19/17 3:31 AM) HEMATOLOGY Most recent to oldest [Reference Range]: 1 WBC [3.7-10.4 K/CMM] 15.2 K/CMM *HI* (05/19/17 2:05 AM) RBC [4.70-6.10 M/CMM] 3.20 M/CMM *LOW* (05/19/17 2:05 AM) Hgb [14.0-18.0 g/dL] 9.8 g/dL *LOW* (05/19/17 2:05 AM) Hct [42.0-54.0 %] 29.0 % *LOW* (05/19/17 2:05 AM) MCV [80.0-94.0 fL] 90.4 fL (05/19/17 2:05 AM) MCH [27.0-31.0 pg] 30.7 pg (05/19/17 2:05 AM) MCHC [32.0-36.0 g/dL] 33.9 g/dL (05/19/17 2:05 AM) RDW [11.5-14.5 %] 13.4 % (05/19/17 2:05 AM) Platelet [133-450 K/CMM] 347 K/CMM (05/19/17 2:05 AM) MPV [7.4-10.4 fL] 7.0 fL *LOW* (05/19/17 2:05 AM) Segs [45.0-75.0 %] 79.4 % *HI* (05/19/17 2:05 AM) Lymphocytes [20.0-40.0 %] 13.0 % *LOW* (05/19/17 2:05 AM) Monocytes [2.0-12.0 %] 4.9 % (05/19/17 2:05 AM) Eosinophils [0.0-4.0 %] 2.3 % (05/19/17 2:05 AM) Basophils [0.0-1.0 %] 0.4 % (05/19/17 2:05 AM) Segs-Bands # [1.5-8.1 K/CMM] 12.1 K/CMM *HI* (05/19/17 2:05 AM) Lymphocytes # [1.0-5.5 K/CMM] 2.0 K/CMM (05/19/17 2:05 AM) Monocytes # [0.0-0.8 K/CMM] 0.7 K/CMM (05/19/17 2:05 AM) Eosinophils # [0.0-0.5 K/CMM] 0.3 K/CMM (05/19/17 2:05 AM) Basophils # [0.0-0.2 K/CMM] 0.1 K/CMM (05/19/17 2:05 AM) Immunizations No data available for this section Procedures Procedure Date Related Diagnosis Body Site Laparoscopic cholecystectomy Social History Social History Type Response Smoking Status Never smoker; Exposure to Tobacco Smoke None; Cigarette Smoking Last 365 Days No; Reg Smoking Cessation Counseling No Assessment and Plan Extracted from: Title: Clinical Document Author: Usama Platt MD Date: 05/19/17 Date of admission: 05/19/2017 Date of discharge: 05/19/2017 Reason for admission 1. Abdominal pain status post cholecystectomy 2. Anxiety 2. Type 1 diabetes mellitus Hospital course The patient presented with abdominal pain after undergoing laparoscopic cholecystectomy a few days ago in a local hospital. CT abdomen was done which showed expected but mild pneumoperitoneum. Surgery was consulted and the pneumoperitoneum was attributed likely to recent laparoscopic procedure. Patient had leukocytosis but no signs of fever or intra -abdominal infection was found. A HIDA scan was o btained to rule out bile leak. HIDA scan was done and bile leak was not found on imaging studies. Patient had significant abdominal pain and psychosomatic complaints. When not being examined by nursi ng staff or myself, the patient seem to be aggravated and in pain and moving around quite a bit. However, on direct talking with him, he becomes quite calm and cooperative. As patient exhibited signs of self injury, we did get psych response. On my assessment, assessment overnight by my physician's and psych response team, patient does not appear to be actively suicidal. He has plans and ambitions for the future. Patient will be discharged home as no objective findings related to the recent surgery or abdominal pathology is found. Case discussed on the day of discharge with psych response and surgery service. Patient seen and examined on the day of discharge. Patient will be given ciprofloxacin and Flagyl for the leukocytosis and recent cholecystectomy. Discharge condition fair Discharge to home Activity as tolerated Please follow-up with primary care physician Please see discharge medicine reconciliation form Extracted from: Title: Clinical Document Author: Elijah Valdez MD Date: 05/19/17 SURGICAL CONSULT Attending: Usama Platt MD Service: Internal Medicine Code status: None Specified=FULL CODE Reason for Admission: INTRACTABLE ABDOMINAL PAIN, LEUKOCYTOSIS, ACUTE HYPERGL Working DRG: None Documented Isolation: None Documented Consulting Physicians: Elijah Valdez MD Office: Service: General Surgery Satish Aguilar MD Office: Service: Medicine CHIEF COMPLAINT: Abdominal pain. REASON FOR CONSULTATION: Abdominal pain. HISTORY OF PRESENT ILLNESS: Thank you for allowing me to participate in the care of this patient. 22-year-old gentleman with medical history significant for diabetes, recent cholecystitis post laparoscopic cholecystectomy 1 week ago presents to [facility] with abdominal pain . Pain described as cramping, sharp, stabbing nature, increasing severity without living factors located in the epigastrium associated with nausea vomiting. Patient admits that his abdominal pain appr oximately a week ago associated with cholecystitis was significantly worse and this pain is better. However patient has been progressively improving but in the last day the pain acutely worsened and fi raimundo came in for evaluation. No fevers chills, no nausea vomiting. Workup in the emergency room revealed leukocytosis as well as postoperative changes with residual pneumoperitoneum and residual free fluid from his recent surgery without other evidence of acute abnormalities. Due to his level of abdominal pain, as well as CT findings, surgery was consulted for evaluation. PAST MEDICAL HISTORY: Diabetes. PAST SURGICAL HISTORY: Recent cholecystectomy MEDS: Please refer to the medication reconciliation form. Allergies: NKDA SOCIAL HISTORY: Denies smoking, drinking, illicit drugs. FAMILY HISTORY: Noncontributory RVIEW OF SYSTEMS: Other than what was mentioned in the HPI, complete review of systems were performed and are negative. Vitals Tmp(F) Pulse BP RR SpO2 FIO2 05/19 07:13 97.9 103 109/72 18 100 --- 05/19 06:10 97.9 88 135/94 19 98 --- 05/19 05:10 98 86 125/70 19 99 --- 05/19 04:10 ---- 84 120/70 18 100 --- 05/19 03:10 ---- 88 125/77 19 100 --- 24 Hr Tmax: 98F (36.67c) at 05/19 05:10 Vital Signs are the last 5 in the past 48 hours. General Appearance: Well appearing, well developed, well nourished, well hydrated, good color. However appears to be in significant distress due to pain. Head: Normocephalic atraumatic Eyes: Pupils equal/round/reactive to light, no scleral icterus, extraocular movements intact Ears: Normal external shape, normal position Nose: Nares patent and no discharge Neck: Supple, FROM Chest Wall: No retractions, No deformities Lungs: CTA bilaterally, and good air entry Heart: Regular rate and regular rhythm Abdomen: soft, tender epigastrium., non-distended, no HSM, and no mass Musculoskeletal: No obvious deformity. Moves all 4 extremities, stable gait. Extremities: Symmetric, no obvious defect, and no cyanosis/clubbing/edema. 2+ pulses bilaterally. Neurologic: Alert/appropriate. CN II-XII grossly intact. Clear speech, aao x 3. Psych: Mood congruent affect, responds appropriately to questions. Labs Most Recent Results Previous Results Previous Results Previous Results WBC H 15.2 (MAY 19) -- -- -- Hgb L 9.8 (MAY 19) -- -- -- Hct L 29.0 (MAY 19) -- -- -- Plt 347 (MAY 19) -- -- -- Na 139 (MAY 19) -- -- -- K 3.7 (MAY 19) -- -- -- CO2 24 (MAY 19) -- -- -- Cl 106 (MAY 19) -- -- -- Cr L 0.48 (MAY 19) -- -- -- BUN 15 (MAY 19) -- -- -- Glucose Random H 281 (MAY 19) -- -- -- Ca L 8.2 (MAY 19) -- -- -- Alk Phos: 201 unit/L High (05/19/17 02:32:34) A/G Ratio: 1.1 (05/19/17 02:32:34) ALT: 63 unit/L (05/19/17 02:32:34) Albumin Lvl: 3.4 g/dL Low (05/19/17 02:32:34) Bili Total: 0.6 mg/dL (05/19/17 02:32:34) Total Protein: 6.5 g/dL (05/19/17 02:32:34) Globulin: 3.1 g/dL (05/19/17 02:32:34) Lipase Lvl: 177 unit/L (05/19/17 02:34:40) DIAGNOSTIC: CT abdomen pelvis reviewed, residual pneumoperitoneum and free fluid from recent laparoscopic surgery without evidence of other acute pathology noted. ASSESSMENT: 22-year-old gentleman with: 1. Abdominal pain. 2. Recent cholecystectomy for cholecystitis. 3. Residual pneumoperitoneum. 4. Diabetes. PLAN: 1. Currently, no obvious surgical pathology identified. 2. However, things to consider is possibility of a bile leak. Will obtain a HIDA scan to further evaluate. 3. Currently, his abdominal exam is focal without diffuse peritonitis. Clinical suspicion for actual bowel injury low. However we will continue to follow with serial exams. 4. For now, continue IV fluids, add IV antibiotics for the pain control, supportive care, symptomatic treatment. 5. Impression plan discussed with the patient and the nursing staff.
--- OUTSIDE RECORDS SUMMARY | 2018-07-02 23:21 | XMS REPORT ---
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 Problem Name Problem Onset Status Entry Provider Comment Standard Annotate Code Date Date Description Diabetes 250.61 Active Simon Diabetes mellitus, type / Saurabh REDD mellitus with I, with neurological gastroparesis manifestation s, type I [juvenile type], not stated as uncontrolled Type 1 diabetes 250.01 Active Damitra Diabetes mellitus / Romero mellitus Saurabh REDD without mention of complication, type I [juvenile type], not stated as uncontrolled Medication List Medication Instructions Start Stop Generic NDC Status Provider Patient Date Date Name Instruction PERCOCET take 1 OXYCODONE-ACETAMINOPHEN 44681378896 Active Rinal Active 7.5-325 tablet Wiley MG ORAL every 8 MD TABLET hours as needed for pain PROCHLORP take 1 PROCHLORPERAZINE MALEATE 96909536854 Active Rinal Active ERAZINE tablet Wiley MALEATE 5 three MD MG ORAL times a TABLET day as needed for nausea, vomitin g Vital Signs Date Name Value Unit Range Description blood pressure, diastolic 78 mm[Hg] BP waldrop blood pressure, systolic 118 mm[Hg] BP sys height E&M 67 [in_us] Bdy height pulse rate E&M 132 /min Heart rate temperature E&M 97.7 [degF] Body temperature weight E&M 109.50 [lb_av] Weight Measured Encounters Date Encounter Provider Code Facility Ofc Vst, Est Level III Simon Wiley MD [id number] [facility] [place] Adult Medicine 16:18:27 CDT
[2018-07-02] MEDS ORDERED: HALOPERIDOL LACT 5 MG/ML INJ ONE (23:49)
[2018-07-02] MEDS ORDERED: NA CHLORIDE 0.9% 1,000 ML ONE (23:49)
[2018-07-02] MEDS ORDERED: DIPHENHYDRAMINE 50 MG/ML VIAL ONE (23:49)
[2018-07-02 23:56] LABS: Absolute Lymphocytes (CBC) 1.2 K/uL (0.7-4.9); Absolute Monocytes 0.5 K/uL (0.1-1.3); Absolute Neutrophil 9.3 K/uL (1.8-8.0); Basophils % 0.4 % (0-1.3); Eosinophils % 0.1 % (0-4.4); Hematocrit 37.5 % (39.6-49.0); Lymphocytes % 10.8 % (15.3-44.8); MPV 7.8 fL (7.6-11.3); Monocytes % 4.3 % (3.3-12.3); RBC Red Blood Cell Count 4.06 M/uL (4.33-5.43)
[2018-07-03 00:10] LABS: ALT/SGPT 20 U/L (12-78); AST/SGOT 14 U/L (15-37); Albumin 4.6 g/dL (3.4-5.0); Alkaline Phosphatase 115 U/L (45-117); BUN Blood Urea Nitrogen 17 mg/dL (7-18); Bicarbonate 28 mmol/L (21-32); Bilirubin Direct 0.2 mg/dL (0-0.2); Bilirubin Total 0.4 mg/dL (0.2-1.0); Glucose Level 76 mg/dL (74-106); Lipase 43 U/L (73-393); Potassium 3.3 mmol/L (3.5-5.1); Protein, Total 8.6 g/dL (6.4-8.2); Sodium Level 143 mmol/L (136-145)
[2018-07-03] MEDS ORDERED: FENTANYL CITR 100 MCG/2 ML ONE (00:36)
--- NOTE | 2018-07-03 01:46 | ER ---
Nurse's Notes [facility] Name: Eric Andrade Age: 23 yrs Sex: Male : 1995 Arrival Date: 07/02/2018 Time: 23:19 Bed 7 Private MD: Diagnosis: Chronic pain syndrome;Gastroparesis Presentation: 07/02 23:28 Presenting complaint: Patient states: abd pain started today. pt has follow up GI ak1 appointment at [facility] 07/11/18. pt stated via cell phone that pt started 3 or 4 new pills. pt can not recall name of pills or what they treat. Transition of care: patient was not received from another setting of care. Onset of symptoms was July 02, 2018. Risk Assessment: Do you want to hurt yourself or someone else? Patient reports no desire to harm self or others. Initial Sepsis Screen: Does the patient meet any 2 criteria? No. Patient's initial sepsis screen is negative. Does the patient have a suspected source of infection? No. Patient's initial sepsis screen is negative. Note pt was treated with Botox via abd injection at "[facility]" in late March 2018. Care prior to arrival: None. 23:28 Method Of Arrival: Wheelchair ak1 23:28 Acuity: PAGE 3 ak1 Triage Assessment: 23:32 General: Appears uncomfortable, slender, Behavior is anxious, crying, restless. Pain: ak1 Complains of pain in abdomen. Historical: - Allergies: 23:32 NKA; ak1 - Home Meds: 23:32 Lantus Sub-Q [Active]; Novolin R Sub-Q 5 unit twice a day [Active]; ak1 - PMHx: 23:32 Chronic Abdominal Pain; Diabetes - IDDM; ak1 - PSHx: 23:32 Cholecystectomy; ak1 - Immunization history:: Adult Immunizations unknown. - Social history:: Smoking status: Patient uses tobacco products, smokes one pack cigarettes per day. - Ebola Screening: : No symptoms or risks identified at this time. Screenin:34 Abuse screen: Denies threats or abuse. Denies injuries from another. Nutritional ak1 screening: No deficits noted. Tuberculosis screening: No symptoms or risk factors identified. Fall Risk None identified. Assessment: 23:35 GI: Abd is soft Abdomen is tender to palpation X 4 quads. ak1 07/03 00:14 Reassessment: Patient appears in no apparent distress at this time. No changes from ak1 previously documented assessment. pt continues to c/o pain. verbal orders from ERP. 00:39 Reassessment: Patient appears in no apparent distress at this time. pt resting ak1 comfortably with even unlabored resp. will continue to monitor. Patient states symptoms have improved. 00:40 GI: Bowel sounds present X 4 quads. ak1 01:55 Reassessment: Patient and/or family updated on plan of care and expected duration. Pain ea level reassessed. Patient is alert, oriented x 3, equal unlabored respirations, skin warm/dry/pink. Discharge instructions given to patient, verbalized the understanding of instruction Patient states feeling better. Patient states symptoms have improved. Vital Signs: 07/02 23:32 BP 158 / 98; Pulse 140; Resp 26; Temp 99.1(O); Pulse Ox 98% on R/A; Weight 54.43 kg ak1 (R); Height 5 ft. 6 in. (167.64 cm) (R); Pain 10/10; 07/03 00:15 BP 143 / 98; Pulse 128; Resp 22; Temp 99.1; Pulse Ox 98% on R/A; Pain 8/10; ak1 00:33 BP 139 / 87; Pulse 111; Resp 16; Pulse Ox 92% on R/A; ak1 00:40 BP 139 / 87; Pulse 96; Resp 16; Pulse Ox 100% on 2 lpm NC; ak1 01:45 BP 150 / 76; Pulse 88; Resp 18; Pulse Ox 99% ; Pain 5/10; ea 07/02 23:32 Body Mass Index 19.37 (54.43 kg, 167.64 cm) ak1 ED Course: 07/02 23:19 Patient arrived in ED. am2 23:30 Triage completed. ak1 23:32 Arm band placed on Patient placed in an exam room, on a stretcher, Patient notified of ak1 wait time. 23:33 Martir Garcia MD is Attending Physician. gs 23:34 Patient has correct armband on for positive identification. Placed in gown. Bed in low ak1 position. Call light in reach. Side rails up X2. Adult w/ patient. Pulse ox on. NIBP on. 23:34 Inserted saline lock: 20 gauge in right forearm, using aseptic technique. ak1 23:46 Tiarra Pruitt, RN is Primary Nurse. ak1 07/03 00:41 No provider procedures requiring assistance completed. ak1 01:50 IV discontinued, intact, bleeding controlled, No redness/swelling at site. Pressure ea dressing applied. Administered Medications: 07/02 23:46 Drug: NS 0.9% 1000 ml Route: IV; Rate: 1 bolus; Site: right forearm; ak1 07/03 00:30 Follow up: Response: No adverse reaction; IV Status: Completed infusion ea 07/02 23:46 Drug: HALdol 2.5 mg Route: IVP; Site: right forearm; ak1 07/03 00:16 Follow up: Response: No adverse reaction ak1 07/02 23:46 Drug: Benadryl 12.5 mg Route: IVP; Site: right antecubital; ak1 07/03 00:16 Follow up: Response: No adverse reaction ak1 00:24 Drug: HALdol 2.5 mg Route: IVP; Site: right forearm; ak1 00:32 Follow up: Response: No adverse reaction ak1 00:32 Drug: fentaNYL (PF) 50 mcg Route: IVP; Site: right forearm; ak1 00:33 Follow up: BP 139 / 87; Pulse 111 bpm; Resp 16 bpm; Pulse Ox 92% RA; pt placed on 2L ak1 via NC oxygen saturation increased to 96% 02:00 CANCELLED (Physician Discretion): Dilaudid 0.5 mg IVP once ea Intake: Outcome: 01:45 Discharge ordered by . 01:55 Discharged to home ambulatory, with family. ea 01:55 Condition: improved 01:55 Discharge instructions given to patient, Instructed on discharge instructions, follow up and referral plans. Demonstrated understanding of instructions, follow-up care. 02:07 Patient left the ED. ea Signatures: Tiarra Pruitt RN RN ak1 Moreno, Amanda am2 Antunez, Elena, RN RN ea Starr, Gregory, MD MD gs
--- NOTE | 2018-07-03 01:46 | EDPHYS ---
Physician Documentation [facility] Name: Eric Andrade Age: 23 yrs Sex: Male : 1995 Arrival Date: 07/02/2018 Time: 23:19 Bed 7 Private MD: ED Physician Martir Garcia HPI: 07/03 00:42 This 23 yrs old Male presents to ER via Wheelchair with complaints of gs Abdominal Pain. 00:42 The patient presents with abdominal pain that is diffuse. Onset: The symptoms/episode gs began/occurred yesterday. Associated signs and symptoms: Pertinent positives: vomiting. The symptoms are described as crampy. Modifying factors: The symptoms are alleviated by nothing, the symptoms are aggravated by nothing. Severity of pain: At its worst the pain was severe in the emergency department the pain is unchanged. The patient has experienced similar episodes in the past, chronically. 01:32 ran out of pain medicine. gs Historical: - Allergies: 07/02 23:32 NKA; ak1 - Home Meds: 23:32 Lantus Sub-Q [Active]; Novolin R Sub-Q 5 unit twice a day [Active]; ak1 - PMHx: 23:32 Chronic Abdominal Pain; Diabetes - IDDM; ak1 - PSHx: 23:32 Cholecystectomy; ak1 - Immunization history:: Adult Immunizations unknown. - Social history:: Smoking status: Patient uses tobacco products, smokes one pack cigarettes per day. - Ebola Screening: : No symptoms or risks identified at this time. ROS: 07/03 00:42 All other systems are negative. gs Exam: 00:42 Head/Face: Normocephalic, atraumatic. Eyes: Pupils equal round and reactive to light, gs extra-ocular motions intact. Lids and lashes normal. Conjunctiva and sclera are non-icteric and not injected. Cornea within normal limits. Periorbital areas with no swelling, redness, or edema. ENT: Nares patent. No nasal discharge, no septal abnormalities noted. Tympanic membranes are normal and external auditory canals are clear. Oropharynx with no redness, swelling, or masses, exudates, or evidence of obstruction, uvula midline. Mucous membranes moist. 00:42 Neck: Trachea midline, no thyromegaly or masses palpated, and no cervical lymphadenopathy. Supple, full range of motion without nuchal rigidity, or vertebral point tenderness. No Meningismus. Chest/axilla: Normal chest wall appearance and motion. Nontender with no deformity. No lesions are appreciated. 00:42 Respiratory: Lungs have equal breath sounds bilaterally, clear to auscultation and percussion. No rales, rhonchi or wheezes noted. No increased work of breathing, no retractions or nasal flaring. Back: No spinal tenderness. No costovertebral tenderness. Full range of motion. Skin: Warm, dry with normal turgor. Normal color with no rashes, no lesions, and no evidence of cellulitis. MS/ Extremity: Pulses equal, no cyanosis. Neurovascular intact. Full, normal range of motion. Neuro: Awake and alert, GCS 15, oriented to person, place, time, and situation. Cranial nerves II-XII grossly intact. Motor strength 5/5 in all extremities. Sensory grossly intact. Cerebellar exam normal. Normal gait. 00:42 Constitutional: The patient appears alert, awake. 00:42 Constitutional: The patient appears uncomfortable. 00:42 Cardiovascular: Rate: tachycardic, Rhythm: regular, Pulses: no pulse deficits are appreciated. 00:42 Abdomen/GI: Palpation: moderate abdominal tenderness, in all quadrants, rebound tenderness, is not appreciated. Vital Signs: 07/02 23:32 BP 158 / 98; Pulse 140; Resp 26; Temp 99.1(O); Pulse Ox 98% on R/A; Weight 54.43 kg ak1 (R); Height 5 ft. 6 in. (167.64 cm) (R); Pain 10/10; 07/03 00:15 BP 143 / 98; Pulse 128; Resp 22; Temp 99.1; Pulse Ox 98% on R/A; Pain 8/10; ak1 00:33 BP 139 / 87; Pulse 111; Resp 16; Pulse Ox 92% on R/A; ak1 00:40 BP 139 / 87; Pulse 96; Resp 16; Pulse Ox 100% on 2 lpm NC; ak1 01:45 BP 150 / 76; Pulse 88; Resp 18; Pulse Ox 99% ; Pain 5/10; ea 07/02 23:32 Body Mass Index 19.37 (54.43 kg, 167.64 cm) ak MDM: 07/02 23:33 Patient medically screened. gs 07/03 00:42 Differential diagnosis: gastroesophageal reflux disease, non-specific abd pain, gs pancreatitis. Data reviewed: vital signs, nurses notes. Response to treatment: the patient's symptoms have markedly improved after treatment, and as a result, I will discharge patient. 01:45 Counseling: I had a detailed discussion with the patient and/or guardian regarding: the gs historical points, exam findings, and any diagnostic results supporting the discharge/admit diagnosis. 07/02 23:34 Order name: Basic Metabolic Panel; Complete Time: 00:19 07/02 23:34 Order name: CBC with Diff; Complete Time: 00:19 07/02 23:34 Order name: Hepatic Function; Complete Time: 00:19 07/02 23:34 Order name: Lipase; Complete Time: 00:19 07/02 23:34 Order name: IV Saline Lock; Complete Time: 23:36 07/02 23:34 Order name: Labs collected and sent; Complete Time: 23:36 Administered Medications: 07/02 23:46 Drug: NS 0.9% 1000 ml Route: IV; Rate: 1 bolus; Site: right forearm; nj1 07/03 00:30 Follow up: Response: No adverse reaction; IV Status: Completed infusion ea 07/02 23:46 Drug: HALdol 2.5 mg Route: IVP; Site: right forearm; ak1 07/03 00:16 Follow up: Response: No adverse reaction [facility] 07/02 23:46 Drug: Benadryl 12.5 mg Route: IVP; Site: right antecubital; ak1 07/03 00:16 Follow up: Response: No adverse reaction nj1 00:24 Drug: HALdol 2.5 mg Route: IVP; Site: right forearm; ak1 00:32 Follow up: Response: No adverse reaction ak1 00:32 Drug: fentaNYL (PF) 50 mcg Route: IVP; Site: right forearm; ak1 00:33 Follow up: BP 139 / 87; Pulse 111 bpm; Resp 16 bpm; Pulse Ox 92% RA; pt placed on 2L ak1 via NC oxygen saturation increased to 96% 02:00 CANCELLED (Physician Discretion): Dilaudid 0.5 mg IVP once ea Disposition: 07/03/18 01:45 Discharged to Home. Impression: Chronic pain syndrome, Gastroparesis. - Condition is Stable. - Discharge Instructions: Chronic Pain, Gastroparesis. - Medication Reconciliation Form, Thank You Letter, Antibiotic Education, Prescription Opioid Use form. - Follow up: Private Physician; When: 2 - 3 days; Reason: Re-evaluation by your physician. Signatures: Dispatcher [employer] EDTiarra James RN RN ak1 Mary Brown RN RN aMrtir Abdi MD MD Corrections: (The following items were deleted from the chart) 02:00 01:25 Dilaudid 0.5 mg IVP once ordered. [place] 02:07 01:45 07/03/2018 01:45 Discharged to Home. Impression: Chronic pain syndrome; ea Gastroparesis. Condition is Stable. Forms are Medication Reconciliation Form, Thank You Letter, Antibiotic Education, Prescription Opioid Use. Follow up: Private Physician; When: 2 - 3 days; Reason: Re-evaluation by your physician.
[2018-07-03 02:40] VITALS: TEMP 99.1
[2018-07-03 02:43] VITALS: BP 139/87
[2018-07-03 02:44] VITALS: O2SAT 100
== END 2018-07-03 02:07 | disposition home or self-care (01) ==
LOC: ER 23:18
DX: G89.4 Chronic pain syndrome (principal); E11.43 Type 2 diabetes mellitus with diabetic autonomic (poly)neuropathy; K31.84 Gastroparesis; F17.210 Nicotine dependence, cigarettes, uncomplicated
CPT/HCPCS: 36415; 80048; 80076; 83690; 85025; 99284; J1630; J3010; J7030

== ENCOUNTER 2020-10-03 21:09 | Emergency (ER) | payer MEDICARE, OTHER, SELFPAY ==
--- OUTSIDE RECORDS SUMMARY | 2020-10-03 21:16 | XMS REPORT | Continuity of Care Document ---
:1995 Author Organization [facility] t Address [address] [place] [address] Support Name Relationship Address Phone NONE, GIVEN Unavailable [address] [phone] [place] [address] NONE, GIVEN Unavailable [address] [phone] [place] [address] DOMINIQUE, FRANCIA Unavailable [address] [phone] [address] [place] [address] DOMINIQUE LAKIA Unavailable [address] [phone] [address] [place] [address] FOX, FRANCIA Unavailable [address] [phone] [place] [address] VANDANA CURRY Unavailable N/A [phone] [place] [address] VANDANA CURRY Unavailable [phone] MIGUEL[address] DIALLO [phone] [place] [address] Yonny Foxith Spouse [address] [phone] [place] [address] Brigitte Calloway Other [address] [phone] [place] [address] Dominique Vandana Spouse [address] [place] [address] KIARA FORDE Unavailable [phone] [phone] [place] [address] NO, OTHER Unavailable [address] [phone] [place] [address] KIARA FORDE Unavailable UNKNOWN [phone] [place] [address] KIARA FORDE Unavailable [address] [place] [address] Vandaan Fox [address] [place] [address] Care Team Providers Name Role Phone Roger Keyshawn BERMEO Brennan Attending Clinician Shahana RDZ, A Attending Clinician Unavailable Ceci Schmitz MD Attending Clinician Demetrius REDD Attending Clinician Lorenzo REDD, Rebecca Attending Clinician Ranjit REDD Attending Clinician Amrit REDD Attending Clinician Salvador RDZ, E Attending Clinician Michelle Syed Attending Clinician Michael Attending Clinician Marlene Huff Attending Clinician Jonathan REDD Attending Clinician Singer BERMEO Attending Clinician Jean REDD, A Attending Clinician Rodrigo REDD Attending Clinician Nita Platt Attending Clinician EDITA Attending Clinician Unavailable Manish Bush Attending Clinician Demetrius REDD Admitting Clinician Amrit REDD Admitting Clinician Jonathan REDD Admitting Clinician Nita Platt Admitting Clinician EDITA Admitting Clinician Unavailable Payers Payer Name Policy Type Policy Number Effective Date Expiration Date S ource Problems Condition Condition Condition Status Onset Resolution Last Treating Co mments Source Name Details Category Date Date Treatment Clinician Date HYPERGLYCE Diagnosis Active 2016-072017-05-19 Memoria SUSAN 07-19 04:31:00 l 00:00: Bhavesh HYPERGLYCE 00 SUSAN Active 05/19/2017 [facility] INTRACTABL Diagnosis Active 2016-072017-05-23 Memoria E 07-19 21:52:00 l ABDOMINAL 00:00: [employer] PAIN, INTRACTABL 00 LEUKOCYTOS E IS ABDOMINAL PAIN, LEUKOCYTOS IS Active 7 [facility] LWBS Diagnosis Active 2014-11-05 Mem oria 5-05 05:09:00 l LWBS 00:00: Bhavesh 00 Active 11/04/2014 [facility] HYPERGLYCE Diagnosis Active 2013-03-08 Memoria SUSAN, 03-05 08:28:00 l KETOSIS 00:00: Bhavehs W/O HYPERGLYCE 00 ACIDOSIS SUSAN, KETOSIS W/O ACIDOSIS Active 03/05/2013 [facility] HIGH BLOOD Diagnosis Active 2013-03-05 Memoria SUGAR 03-05 14:23:00 l HIGH 00:00: Bhavesh BLOOD 00 SUGAR Active 03/05/2013 [facility] UNSPECIFIE Diagnosis Active 2017-05-23 Memoria D 21:52:00 l ABDOMINAL [employer] PAIN UNSPECIFIE D ABDOMINAL PAIN Active [facility] ELEVATED Diagnosis Active 2017-05-23 M emoria WHITE 21:52:00 l BLOOD CELL ELEVATED He rmann COUNT, WHITE UNSPECI BLOOD CELL COUNT, UNSPECI Active [facility] HYPERGLYCE Diagnosis Active 2017-05-23 Memoria SUSAN, 21:52:00 l UNSPECIFIE Ruben n D HYPERGLYCE SUSAN, UNSPECIFIE D Active [facility] Diabetes Problem Resolve 2017-05-22 Mo moria mellitus d 04:07:01 l (disorder) Diabetes He rmann mellitus (disorder) Resolved Problem 05/22/2017 [facility] Allergies, Adverse Reactions, Alerts Allergy Allergy Status Severity Reaction(s) Onset Inactive Treating Comm ents Source Name Type Date Date Clinician No Known DA Active U 2019-07 [facility] No Known DA Active U 2017-07 [facility] Allergie 0-24 [facility] No Known DA Active U 2017-07 [facility] No Known DA Active U [facility]- [facility] Social History Social Habit Start Date Stop Date Quantity Comments Source Sex Assigned [facility] Social History 2014-11-05 2014-11-05 [facility] 05:24:00 05:24:00 Smoking Status Start Date Stop Date Source Social History [facility] Medications Ordered Filled Start Stop Current Ordering Indication Dosage Frequency Signature Comments Components Source Medication Medication Date Date Medication? Clinician (SIG) Name Name Metronidazo 2016-07 Yes 500 mg = 1 Memoria le 500 MG 1-17 tab, PO, l Oral Tablet 20:37: Q8H, X 7 [facility] r[facility] [Flagyl] , # 21 tab, 0 Refill(s) ciprofloxac 2016-07 Yes 500 mg = 1 Memoria in 500 mg 1-17 tab, PO, l oral tablet 20:36: Q12H, X 7 H ermann day, # 14 tab, 0 Refill(s) Ativan 2016-07 No Notes: Memoria 1-17 (Same as: l 17:50: Ativan) morphine 2016-07 No Notes: Memoria Sulfate -17 (Same l 16:22: as:MORPhin e Sulfate) Morphine 2016-07 No 2 mg, 1 Memori a 1-17 mL, Route: l 15:58: IVP, Drug form: SOLN, Q2H, Dosing Weight 49.545, kg, PRN Pain Score 7-10, Start date: 05/19/17 9:58:00 MACHINE [employer]IL ASSEMBLER, Duration: 30 day, Stop date: 06/18/17 9:57:00 MACHINE [employer]IL ASSEMBL[employer] Dilaudid 2016-07 No 0.5 mg, Memori a 1-17 Route: l 15:58: IVP, ONCE, Dosing Weight 49.545, kg, Priority: STAT, Start date: 05/19/17 9:58:00 MACHINE COIL ASSEMBLER, Stop date: 05/19/17 9:58:00 MACHINE COIL ASSEMBLER Promethazin 2016-07 No Notes: Enmanuel héctor e -17 (Same as: l 15:58: Phenergan) Zosyn 2016-07 No Notes: Memoria 1-17 (Same as: l 14:00: Zosyn) Dosing based on Piperacill in component MEDICATION WASTE Product Size: 3375 mg Product Wasted: ___ mg Metoclopram 2016-07 No 10 mg = 1 M emoria april 10 MG 1-17 tab, PO, l Oral Tablet 13:50: QID, # 28 H ermann [Reglan] 00 tab, 0 Refill(s) NovoLog 2016-07 Yes 15 unit, Memori a 1-17 SUB-Q, l 13:50: TID-Before Bhavesh 00 Meals, 0 Refill(s) normal 2016-07 No 1,000 mL, Memori a saline 0.9% 1-17 Rate: 120 l IV 1,000 mL 13:48: ml/hr, Infuse over: 8.3 hr, Route: IV, Dosing Weight 49.545 kg, Total Volume: 1,000, Start date: 05/19/17 7:48:00 MACHINE COIL ASSEMBLER, Duration: 30 day, Stop date: 06/18/17 7:47:00 MACHINE COIL ASSEMBLER, 1.53, m2 morphine 2016-07 No Notes: Memoria Sulfate -17 (Same l 13:04: as:MORPhin [employer] e Sulfate) Insulin 2016-07 No Notes: Memoria Glargine -17 (Same as: l 100 UNT/ML 12:32: Lantus) Do H ermann Injectable not hold Solution insulin [Lantus] without contacting prescriber WASTE: F/P - Black; E - Municipal Trash Bin "single patient use only" Saline 2016-07 No Notes: Memoria Flush 0.9% -17 (Same as: l 12:31: BD [employer] Posiflush) Ondansetron 2016-07 No Notes: Enmanuel héctor -17 (Same as: l 12:31: Zofran) Bhavesh 00 MEDICATION WASTE Product Size: 4 mg Product Wasted: ___ mg Acetaminoph 2016-07 No Notes: Enmanuel héctor en 325 MG / - (Same as: l Hydrocodone 12:31: [place] Aniya nn Bitartrate 00 325/5) Do 5 MG Oral not exceed Tablet 4gm/day of acetaminop hen. Morphine 2016-07 No 2 mg, Memoria -17 Route: l 12:31: IVP, Q4H, [employer] Dosing Weight 49.545, kg, PRN Pain Score 7-10, Start date: 05/19/17 6:31:00 MACHINE COIL ASSEMBLER, Duration: 30 day, Stop date: 06/18/17 6:30:00 MACHINE COIL ASSEMBLER Sodium 2016-07 No 1,000 mL, Memori a Chloride 07-19 Rate: 125 l 0.9% IV 12:31: ml/hr, [employer] 1,000 mL 00 Infuse over: 8 hr, Route: IV, Dosing Weight 49.545 kg, Total Volume: 1,000, Start date: 05/19/17 6:31:00 MACHINE COIL ASSEMBLER, Duration: 30 day, Stop date: 06/18/17 6:30:00 MACHINE COIL ASSEMBLER, 1.53, m2 Insulin 2016-07 No Notes: Memoria Lispro 07-19 Roll in l 12:31: palms of Bhavesh 00 hands gently; Do not shake `vigorousl y. (Same as: Humalog ) "Single Patient Use Only " WASTE: F/P - Black; E - Municipal Trash Bin Stable for 28 days at room temperatur e. Expires in days from ____Date Glucagon 2016-07 No 1 mg, Memoria 07-19 Route: IM, l 12:31: Drug form: Bhavesh 00 PDR/INJ, PRN, Dosing Weight 49.545, kg, PRN Blood Glucose Results, Start date: 05/19/17 6:31:00 MACHINE COIL ASSEMBLER, Duration: 30 day, Stop date: 06/18/17 6:30:00 MACHINE COIL ASSEMBLER Dextrose 2016-07 No 25 gm, 50 Enmanuel héctor 50% Syringe 1-17 mL, Route: l 12:31: IVP, Drug [employer] 00 Form: INJ, Dosing Weight 49.545, kg, PRN, PRN Blood Glucose Results, Start date: 05/19/17 6:31:00 MACHINE COIL ASSEMBLER, Duration: 30 day, Stop date: 06/18/17 6:30:00 MACHINE COIL ASSEMBLER Lorazepam 2016-07 No 1 mg, Memoria 07-19 Route: l 11:52: IVP, Drug Bhavesh form: INJ, ONCE, Dosing Weight 49.545, kg, Priority: STAT, Start date: 05/19/17 5:52:00 MACHINE COIL ASSEMBLER, Stop date: 05/19/17 5:52:00 MACHINE COIL ASSEMBLER Morphine 2016-07 No 4 mg, Memoria 07-19 Route: l 09:46: IVP, ONCE, Bhavesh 00 Dosing Weight 49.545, kg, Priority: STAT, Start date: 05/19/17 3:46:00 MACHINE COIL ASSEMBLER, Stop date: 05/19/17 3:46:00 MACHINE COIL ASSEMBLER Zofran 2016- No 4 mg, Memoria 07-19 Route: l 09:46: IVP, Drug [employer] 00 form: INJ, ONCE, Dosing Weight 49.545, kg, Priority: STAT, Start date: 05/19/17 3:46:00 MACHINE COIL ASSEMBLER, Stop date: 05/19/17 3:46:00 MACHINE COIL ASSEMBLER Sodium 2016-07 No 1,486.35 Memoria Chloride 07-19 mL, 2,000 l 0.9% 07:54: ml/hr, [employer] (Bolus) IV 00 Route: IV, ONCE, Priority: STAT, Dosing Weight 49.545 kg, Start date: 05/19/17 1:54:00 MACHINE COIL ASSEMBLER, Stop date: 05/19/17 1:54:00 MACHINE COIL ASSEMBLER, Sepsis dose. Vital Signs Vital Name Observation Time Observation Value Comments Source Respitory Rate 2017-05-19 17:03:00 Memori al Bhavesh Systolic (mm Hg) 2017-05-19 17:03:00 Enmanuel rial Bhavesh Diastolic (mm Hg) 2017-05-19 17:03:00 Mem orial Bhavesh Temperature Oral (F) 2017-05-19 17:03:00 97.6 F [facility] Bhavesh Heart Rate 2017-05-19 17:03:00 [facility] Bhavesh Weight 2017-05-19 13:26:00 [facility] Height 2017-05-19 13:26:00 170.18 cm [facility] BMI Calculated 2017-05-19 13:26:00 Memori al [employer] Systolic (mm Hg) 2017-05-19 13:13:00 Enmanuel rial Bhavesh Diastolic (mm Hg) 2017-05-19 13:13:00 Mem orial [employer] Respitory Rate 2017-05-19 13:13:00 Memori al [employer] Temperature Oral (F) 2017-05-19 13:13:00 97.9 F [facility] Bhavesh Heart Rate 2017-05-19 13:13:00 [facility] Bh[facility] Temperature Oral (F) 2017-05-19 12:10:00 97.9 F [facility] Bhavesh Heart Rate 2017-05-19 12:10:00 [facility] Bhavesh Respitory Rate 2017-05-19 12:10:00 Memori al [employer] Systolic (mm Hg) 2017-05-19 12:10:00 Enmanuel rial [employer] Diastolic (mm Hg) 2017-05-19 12:10:00 Mem orial [employer] Height 2017-05-19 06:15:00 170.18 cm [facility] Bhavesh BMI Calculated 2017-05-19 06:15:00 Memori al [employer] Weight 2017-05-19 06:15:00 [facility] Temperature Oral (F) 2014-11-04 23:43:00 98.1 F [facility] Weight 2014-11-04 23:43:00 [facility] BMI Calculated 2014-11-04 23:43:00 Memori al [employer] Height 2014-11-04 23:43:00 170.18 cm [facility] Bhavesh Systolic (mm Hg) 2014-11-04 23:43:00 Enmanuel rial Bhavesh Diastolic (mm Hg) 2014-11-04 23:43:00 Mem orial [employer] Respitory Rate 2014-11-04 23:43:00 Memori al [employer] Heart Rate 2014-11-04 23:43:00 [facility] Procedures Procedure Date / Time Performing Clinician Source Performed Laparoscopic [facility] cholecystectomy Plan of Care Planned Activity Planned Date Details Comments Source Future Scheduled Test 2020-04-02 00:00:00 IMM [facility] Seasonal Apr to August (>/= 19 yrs) [code = IMM Influenza Seasonal Apr to August (>/= 19 yrs)] Encounters Start End Encounter Admission Attending Care Care Encounter Source Date/Time Date/Time Type Type Clinicians Facility Department ID 2020-09-22 2020-09-22 Patient RANI Duran [id number] 00:00:00 00:00:00 Outreach Keyshawn PRIMARY [id number] Brennan CARE [id number] [place] [id number] 2020-07-01 2020-07-01 Transition Amalia Harkins 1.2.840.114 [id number] 00:00:00 00:00:00 of Care Bartolo Da Silva [id number] [place] [id number] [id number] 2020-06-27 2020-06-29 [facility] Denise Schmitz 1 .2.840.114 [id number] 18:51:00 16:00:00 Encounter Tomy Romo [id number] [facility] [id number] [id number] 2020-06-20 2020-06-21 [facility] Ramone Church [facility] 1.2.840.1 [id number] 09:39:00 16:00:00 Encounter Jose R Marcus [id number] [place] [id number] [place] [id number] 2020 2020 Patient Fariha Franco Amalia [id number] 00:00:00 00:00:00 Outreach E Da Silva [id number] [place] [id number] [id number] 2020-02-14 2020-02-14 Patient Fariha Franco Amalia 1.2.840.114 [id number] 00:00:00 00:00:00 Outreach E Da Silva [id number] [place] [id number] [id number] 2020-01-29 2020-01-29 Patient Amalia Syed 1.2.840.114 [id number] 00:00:00 00:00:00 Outreach Sirena E Da Silva [id number] [place] 4.2.7.2.686 [id number] 2020-01-14 2020-01-14 Transition Amalia Rodriguez 1.2.840.114 [id number] 00:00:00 00:00:00 of Care Chasity Da Silva [id number] [place] [id number] [id number] 2020-01-13 2020-01-13 Transition Amalia Rodriguez 1.2.840.114 [id number] 00:00:00 00:00:00 of Care Chasity Da Silva [id number] [place] 4.2.7.2.686 [id number] 2020-01-07 2020-01-10 [facility] Jerad Nayak [facility] 1.2.840.1 [id number] 18:27:56 19:30:00 Encounter Wally Castillo Bruna [id number] [place] 4.2.7.2.686 [place] [id number] 2020-01-08 2020-01-08 Telephone Jerad Nayak 1.2.840.114 [id number] 00:00:00 00:00:00 Marlene VILLAVICENCIO [id number] [id number] 2019-05-20 2019-05-20 Emergency [facility] [id number] [place] 10:54:24 10:54:24 Health 2019-04-09 2019-04-09 Emergency [facility] MED [id number] [place] 10:22:28 10:22:28 Health 2019-03-02 2019-03-02 Emergency Singer [facility] [id number] 07:25:27 12:02:00 Lester Mcfarland 350.1.13.10 [place] 4.2.7.2.686 [place] [id number] [facility] 2019-02-25 2019-02-25 Telephone Jean [facility] 1.2.840.114 [id number] 00:00:00 00:00:00 Sandra Mcfarland 350.1.13.10 [place] 4.2.7.2.686 [id number] [facility] [address] [facility] 2019-02-22 2019-02-22 Office Rodrigo [facility] 1.2.840.114 [id number] 09:09:32 10:33:37 Visit [facility] [id number] E[place] 4.2.7.2.686 [place] [id number] [facility] 2019-02-21 2019-02-21 Telephone Jean [facility] 1.2.840.114 [id number] 00:00:00 00:00:00 Sandra Mcfarland 350.1.13.10 [place] 4.2.7.2.686 Professio [id number] [facility] 0[address] [facility] 2019-02-11 2019-02-11 Refill Jean [facility] 1.2.840.114 [id number] 00:00:00 00:00:00 Sandra Mcfarlnad 350.1.13.10 [place] 4.2.7.2.686 Edwin [id number] [address] 2017-05-19 2017-05-19 Outpatient Usama Platt [facility] [id number] 00:13:00 16:15:00 Thalakularadha 02 u 2014-11-04 2014-11-05 Outpatient Eleazar [facility] [id number] 18:13:00 00:24:00 Vin 01 Manish Results Test Description Test Time Test Comments Results Result Comments Source GLUBED 2020-06-26 13:58:00 Test Item Value Reference Range Interpretation Comme nts GLUBED (test code = GLUBED) 162 mg/dL 74-106 H Performed by certified 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 [facility] [id number] 13:12:00 Test Item Value Reference Range Interpretation Comments GLUBED (test code = 171 mg/dL 74-106 H Performe d by certified GLUBED) 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 [facility] BASIC METABOLIC [id number] 12:42:00 Test Item Value Reference Range Interpretation Comments SODIUM (test code = 139 mmol/L 136-145 N NA) POTASSIUM (test code 3.4 mmol/L 3.5-5.1 L = K) CHLORIDE (test code = 106.0 mmol/L 98-107 N CL) CARBON DIOXIDE (test 17.0 mmol/L 21-32 L code = CO2) ANION GAP (test code 19.4 10-20 N = GAP) GLUCOSE (test code = 233 mg/dL 74-106 H GLU) BLOOD UREA NITROGEN 15 mg/dL 7-18 N (test code = BUN) GLOMERULAR FILTRATION > 60 mL/min >=60 Estima loy GFR by RATE (test code = using Arash fied MDRD GFR) formula.Chronic kidney disease is defined as eith er kidney damageor GFR <60 mL/min/1.73 m2 for >3 months. CREATININE (test code 0.70 mg/dL 0.7-1.3 N = CREAT) BUN/CREATININE RATIO 20.6 10-20 H (test code = BUN/CREA) CALCIUM (test code = 7.6 mg/dL 8.5-10.1 L CA) [id number] 12:42:00 Test Item Value Reference Range Interpretation Comments PHOSPHORUS (test code = PHOS) 1.7 mg/dL 2.5-4.9 L [id number] 12:42:00 Test Item Value Reference Range Interpretation Comments MAGNESIUM (test code = MAG) 1.8 mg/dL 1.8-2.4 N CALCIUM [id number] 12:42:00 Test Item Value Reference Range Interpretation Comments CALCIUM IONIZED (test code = FRANDY) mmol/L 1.12-1.32 BASIC METABOLIC [id number] 12:42:00 Test Item Value Reference Range Interpretation Comments SODIUM (test code = 139 mmol/L 136-145 N NA) POTASSIUM (test code 3.4 mmol/L 3.5-5.1 L = K) CHLORIDE (test code = 106.0 mmol/L 98-107 N CL) CARBON DIOXIDE (test 17.0 mmol/L 21-32 L code = CO2) ANION GAP (test code 19.4 10-20 N = GAP) GLUCOSE (test code = 233 mg/dL 74-106 H GLU) BLOOD UREA NITROGEN 15 mg/dL 7-18 N (test code = BUN) GLOMERULAR FILTRATION > 60 mL/min >=60 Estima loy GFR by RATE (test code = using Arash fied MDRD GFR) formula.Chronic kidney disease is defined as [facility] kidney damageor GFR <60 mL/min/1.73 m2 for >3 months. CREATININE (test code 0.70 mg/dL 0.7-1.3 N = CREAT) BUN/CREATININE RATIO 20.6 10-20 H (test code = BUN/CREA) CALCIUM (test code = 7.6 mg/dL 8.5-10.1 L CA) [id number] 12:42:00 Test Item Value Reference Range Interpretation Comments PHOSPHORUS (test code = PHOS) 1.7 mg/dL 2.5-4.9 L [id number] 12:42:00 Test Item Value Reference Range Interpretation Comments MAGNESIUM (test code = MAG) 1.8 mg/dL 1.8-2.4 N CALCIUM [id number] 12:42:00 Test Item Value Reference Range Interpretation Comments CALCIUM IONIZED (test code = FRANDY) 1.29 mmol/L 1.12-1.32 N [id number] 12:08:00 Test Item Value Reference Range Interpretation Comments GLUBED (test code = 226 mg/dL 74-106 H Performe d by certified GLUBED) 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 [facility] BASIC METABOLIC [id number] 09:44:00 Test Item Value Reference Range Interpretation Comments SODIUM (test code = 135 mmol/L 136-145 L NA) POTASSIUM (test code 3.9 mmol/L 3.5-5.1 N = K) CHLORIDE (test code = 101.0 mmol/L 98-107 N CL) CARBON DIOXIDE (test 12.0 mmol/L 21-32 L code = CO2) ANION GAP (test code 25.9 10-20 H = GAP) GLUCOSE (test code = 393 mg/dL 74-106 H GLU) BLOOD UREA NITROGEN 18 mg/dL 7-18 N (test code = BUN) GLOMERULAR FILTRATION > 60 mL/min >=60 Estima loy GFR by RATE (test code = using Arash fied MDRD GFR) formula.Chronic kidney disease is defined as [facility] kidney damageor GFR <60 mL/min/1.73 m2 for >3 months. CREATININE (test code 0.80 mg/dL 0.7-1.3 N = CREAT) BUN/CREATININE RATIO 22.1 10-20 H (test code = BUN/CREA) CALCIUM (test code = 7.6 mg/dL 8.5-10.1 L CA) [id number] 09:44:00 Test Item Value Reference Range Interpretation Comments PHOSPHORUS (test code = PHOS) 2.5 mg/dL 2.5-4.9 N [id number] 09:44:00 Test Item Value Reference Range Interpretation Comments MAGNESIUM (test code = MAG) 1.9 mg/dL 1.8-2.4 N CALCIUM [id number] 09:44:00 Test Item Value Reference Range Interpretation Comments CALCIUM IONIZED (test code = FRANDY) 1.23 mmol/L 1.12-1.32 N [id number] 09:40:00 Test Item Value Reference Range Interpretation Comments GLUBED (test code = 383 mg/dL 74-106 H Performe d by certified GLUBED) 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 [facility] BASIC METABOLIC [id number] 09:38:00 Test Item Value Reference Range Interpretation Comments SODIUM (test code = NA) 135 mmol/L 136-145 L POTASSIUM (test code = K) 3.9 mmol/L 3.5-5.1 N CHLORIDE (test code = CL) 101.0 mmol/L 98-107 N CARBON DIOXIDE (test code = CO2) mmol/L 21-32 ANION GAP (test code = GAP) 10-20 GLUCOSE (test code = GLU) mg/dL 74-106 BLOOD UREA NITROGEN (test code = mg/dL 7-18 BUN) GLOMERULAR FILTRATION RATE (test mL/min >=60 code = GFR) CREATININE (test code = CREAT) mg/dL 0.7-1.3 BUN/CREATININE RATIO (test code 1020 = BUN/CREA) CALCIUM (test code = CA) mg/dL 8.5-10.1 [id number] 09:38:00 Test Item Value Reference Range Interpretation Comments PHOSPHORUS (test code = PHOS) mg/dL 2.5-4.9 [id number] 09:38:00 Test Item Value Reference Range Interpretation Comments MAGNESIUM (test code = MAG) mg/dL 1.8-2.4 CALCIUM [id number] 09:38:00 Test Item Value Reference Range Interpretation Comments CALCIUM IONIZED (test code = FRANDY) 1.23 mmol/L 1.12-1.32 N BASIC METABOLIC [id number] 09:31:00 Test Item Value Reference Range Interpretation Comments SODIUM (test code = NA) mmol/L 136-145 POTASSIUM (test code = K) mmol/L 3.5-5.1 CHLORIDE (test code = CL) mmol/L 98-107 CARBON DIOXIDE (test code = CO2) mmol/L 21-32 ANION GAP (test code = GAP) 10-20 GLUCOSE (test code = GLU) mg/dL 74-106 BLOOD UREA NITROGEN (test code = BUN) mg/dL 7-18 GLOMERULAR FILTRATION RATE (test code mL/min >=60 = GFR) CREATININE (test code = CREAT) mg/dL 0.7-1.3 BUN/CREATININE RATIO (test code = 10-20 BUN/CREA) CALCIUM (test code = CA) mg/dL 8.5-10.1 [id number] 09:31:00 Test Item Value Reference Range Interpretation Comments PHOSPHORUS (test code = PHOS) mg/dL 2.5-4.9 [id number] 09:31:00 Test Item Value Reference Range Interpretation Comments MAGNESIUM (test code = MAG) mg/dL 1.8-2.4 CALCIUM [id number] 09:31:00 Test Item Value Reference Range Interpretation Comments CALCIUM IONIZED (test code = FRANDY) 1.23 mmol/L 1.12-1.32 N [id number] 08:56:00 Test Item Value Reference Range Interpretation Comments GLUBED (test code = 335 mg/dL 74-106 H Performe d by certified GLUBED) 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 [facility] [id number] 07:42:00 Test Item Value Reference Range Interpretation Comments GLUBED (test code = 413 mg/dL 74-106 H Performe d by certified GLUBED) 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 [facility] [id number] 04:33:00 Test Item Value Reference Range Interpretation Comments GLUBED (test code = 396 mg/dL 74-106 H Performe d by certified GLUBED) 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 [facility] [id number] 04:04:00 Test Item Value Reference Range Interpretation Comments PHOSPHORUS (test code = PHOS) 2.1 mg/dL 2.5-4.9 L [id number] 04:04:00 Test Item Value Reference Range Interpretation Comments MAGNESIUM (test code = MAG) 1.8 mg/dL 1.8-2.4 N CALCIUM [id number] 04:04:00 Test Item Value Reference Range Interpretation Comments CALCIUM IONIZED (test code = FRANDY) 1.24 mmol/L 1.12-1.32 N BASIC METABOLIC [id number] 04:04:00 Test Item Value Reference Range Interpretation Comments SODIUM (test code = 134 mmol/L 136-145 L NA) POTASSIUM (test code 4.4 mmol/L 3.5-5.1 N = K) CHLORIDE (test code = 102.0 mmol/L 98-107 N CL) CARBON DIOXIDE (test 15.0 mmol/L 21-32 L Previou sly reported code = CO2) result: 15.0 mmol/LEdited by : [email or web address] on 06/26/20:0404 ANION GAP (test code 21.4 10-20 H = GAP) GLUCOSE (test code = 331 mg/dL 74-106 H GLU) BLOOD UREA NITROGEN 16 mg/dL 7-18 N (test code = BUN) GLOMERULAR FILTRATION > 60 mL/min >=60 Estima loy GFR by RATE (test code = using Arash fied MDRD GFR) formula.Chronic kidney disease is defined as [facility] er kidney damageor GFR <60 mL/min/1.73 m2 for >3 months. CREATININE (test code 0.60 mg/dL 0.7-1.3 L = CREAT) BUN/CREATININE RATIO 24.7 10-20 H (test code = BUN/CREA) CALCIUM (test code = 8.1 mg/dL 8.5-10.1 L CA) BASIC METABOLIC [id number] 03:47:00 Test Item Value Reference Range Interpretation Comments SODIUM (test code = 134 mmol/L 136-145 L NA) POTASSIUM (test code 4.4 mmol/L 3.5-5.1 N = K) CHLORIDE (test code = 102.0 mmol/L 98-107 N CL) CARBON DIOXIDE (test 15.0 mmol/L 21-32 L code = CO2) ANION GAP (test code 10-20 = GAP) GLUCOSE (test code = 331 mg/dL 74-106 H GLU) BLOOD UREA NITROGEN 16 mg/dL 7-18 N (test code = BUN) GLOMERULAR FILTRATION > 60 mL/min >=60 Estima loy GFR by RATE (test code = using Arash fied MDRD GFR) formula.Chronic kidney disease is defined as [facility] er kidney damageor GFR <60 mL/min/1.73 m2 for >3 months. CREATININE (test code 0.60 mg/dL 0.7-1.3 L = CREAT) BUN/CREATININE RATIO 24.7 10-20 H (test code = BUN/CREA) CALCIUM (test code = 8.1 mg/dL 8.5-10.1 L CA) BASIC METABOLIC [id number] 03:46:00 Test Item Value Reference Range Interpretation Comments SODIUM (test code = mmol/L 136-145 NA) POTASSIUM (test code = mmol/L 3.5-5.1 K) CHLORIDE (test code = mmol/L 98-107 CL) CARBON DIOXIDE (test 15.0 mmol/L 21-32 L code = CO2) ANION GAP (test code = 10-20 GAP) GLUCOSE (test code = 331 mg/dL 74-106 H GLU) BLOOD UREA NITROGEN 16 mg/dL 7-18 N (test code = BUN) GLOMERULAR FILTRATION > 60 mL/min >=60 Estima loy GFR by RATE (test code = GFR) using Modified MDRD formula.Chronic kidney disease is defined as e[facility] er kidney damageor GFR <60 mL/min/1.73 m2 for >3 months. CREATININE (test code 0.60 mg/dL 0.7-1.3 L = CREAT) BUN/CREATININE RATIO 24.7 10-20 H (test code = BUN/CREA) CALCIUM (test code = 8.1 mg/dL 8.5-10.1 L CA) [id number] 03:20:00 Test Item Value Reference Range Interpretation Comments PHOSPHORUS (test code = PHOS) 2.1 mg/dL 2.5-4.9 L [id number] 03:20:00 Test Item Value Reference Range Interpretation Comments MAGNESIUM (test code = MAG) 1.8 mg/dL 1.8-2.4 N CALCIUM [id number] 03:20:00 Test Item Value Reference Range Interpretation Comments CALCIUM IONIZED (test code = FRANDY) mmol/L 1.12-1.32 [id number] 03:15:00 Test Item Value Reference Range Interpretation Comments PHOSPHORUS (test code = PHOS) mg/dL 2.5-4.9 [id number] 03:15:00 Test Item Value Reference Range Interpretation Comments MAGNESIUM (test code = MAG) 1.8 mg/dL 1.8-2.4 N CALCIUM [id number] 03:15:00 Test Item Value Reference Range Interpretation Comments CALCIUM IONIZED (test code = FRANDY) mmol/L 1.12-1.32 CBC W/AUTO [id number] 02:57:00 Test Item Value Reference Range Interpretation Comments WHITE BLOOD CELL (test code = 12.3 K/mm3 4.5-12.5 N WBC) RED BLOOD CELL (test code = 3.00 mill/mm3 4.0-5.8 L RBC) HEMOGLOBIN (test code = HGB) 9.4 gram/dL 13.0-17.5 L HEMATOCRIT (test code = HCT) 29.4 % 42.0-52.0 L MEAN CELL VOLUME (test code = 98.0 fL 80-98 N MCV) MEAN CELL HGB (test code = MCH) 31.3 picogram 27.0-33.0 N MEAN CELL HGB CONCETRATION 32.0 gram/dL 33.0-36.0 L (test code = MCHC) RED CELL DISTRIBUTION WIDTH 13.2 % 11.6-16.2 N (test code = RDW) RED CELL DISTRIBUTION WIDTH SD 47.3 fL 37.0-51.0 N (test code = RDW-SD) PLATELET COUNT (test code = 295 K/mm3 150-450 N PLT) MEAN PLATELET VOLUME (test code 10.4 fL 6.7-11.0 N = MPV) NEUTROPHIL % (test code = NT%) 83.0 % 39.0-69.0 H IMMATURE GRANULOCYTE % (test 0.4 % 0.0-5.0 N code = IG%) LYMPHOCYTE % (test code = LY%) 11.0 % 25.0-55.0 L MONOCYTE % (test code = MO%) 5.3 % 0.0-10.0 N EOSINOPHIL % (test code = EO%) 0.2 % 0.0-5.0 N BASOPHIL % (test code = BA%) 0.1 % 0.0-1.0 N NUCLEATED RBC % (test code = 0.0 % 0-0 N NRBC%) NEUTROPHIL # (test code = NT#) 10.22 K/mm3 1.8-7.7 H IMMATURE GRANULOCYTE # (test 0.05 x10 3/uL 0-0.03 H code = IG#) LYMPHOCYTE # (test code = LY#) 1.35 K/mm3 1.0-5.0 N MONOCYTE # (test code = MO#) 0.65 K/mm3 0-0.8 N EOSINOPHIL # (test code = EO#) 0.02 K/mm3 0.0-0.5 N BASOPHIL # (test code = BA#) 0.01 K/mm3 0.0-0.2 N NUCLEATED RBC # (test code = 0.00 K/mm3 0.0-0.1 N NRBC#) MANUAL DIFF REQUIRED (test code NO = MDIFF) BASIC METABOLIC [id number] 21:52:00 Test Item Value Reference Range Interpretation Comments SODIUM (test code = 138 mmol/L 136-145 N NA) POTASSIUM (test code 3.8 mmol/L 3.5-5.1 N = K) CHLORIDE (test code = 105.0 mmol/L 98-107 N CL) CARBON DIOXIDE (test 25.0 mmol/L 21-32 N code = CO2) ANION GAP (test code 11.8 10-20 N = GAP) GLUCOSE (test code = 153 mg/dL 74-106 H GLU) BLOOD UREA NITROGEN 11 mg/dL 7-18 N (test code = BUN) GLOMERULAR FILTRATION > 60 mL/min >=60 Estima loy GFR by RATE (test code = using Arash fied MDRD GFR) formula.Chronic kidney disease is defined as [facility] kidney damageor GFR <60 mL/min/1.73 m2 for >3 months. CREATININE (test code 0.60 mg/dL 0.7-1.3 L = CREAT) BUN/CREATININE RATIO 19.5 10-20 N (test code = BUN/CREA) CALCIUM (test code = 7.8 mg/dL 8.5-10.1 L CA) [id number] 21:52:00 Test Item Value Reference Range Interpretation Comments PHOSPHORUS (test code = PHOS) 2.0 mg/dL 2.5-4.9 L [id number] 21:52:00 Test Item Value Reference Range Interpretation Comments MAGNESIUM (test code = MAG) 1.9 mg/dL 1.8-2.4 N CALCIUM [id number] 21:52:00 Test Item Value Reference Range Interpretation Comments CALCIUM IONIZED (test code = FRANDY) 1.22 mmol/L 1.12-1.32 N BASIC METABOLIC [id number] 21:41:00 Test Item Value Reference Range Interpretation Comments SODIUM (test code = NA) 138 mmol/L 136-145 N POTASSIUM (test code = K) 3.8 mmol/L 3.5-5.1 N CHLORIDE (test code = CL) 105.0 mmol/L 98-107 N CARBON DIOXIDE (test code = CO2) mmol/L 21-32 ANION GAP (test code = GAP) 10-20 GLUCOSE (test code = GLU) mg/dL 74-106 BLOOD UREA NITROGEN (test code = mg/dL 7-18 BUN) GLOMERULAR FILTRATION RATE (test mL/min >=60 code = GFR) CREATININE (test code = CREAT) mg/dL 0.7-1.3 BUN/CREATININE RATIO (test code 20 = BUN/CREA) CALCIUM (test code = CA) mg/dL 8.5-10.1 [id number] 21:41:00 Test Item Value Reference Range Interpretation Comments PHOSPHORUS (test code = PHOS) mg/dL 2.5-4.9 [id number] 21:41:00 Test Item Value Reference Range Interpretation Comments MAGNESIUM (test code = MAG) mg/dL 1.8-2.4 CALCIUM [id number] 21:41:00 Test Item Value Reference Range Interpretation Comments CALCIUM IONIZED (test code = FRANDY) mmol/L 1.12-1.32 BASIC METABOLIC [id number] 21:41:00 Test Item Value Reference Range Interpretation Comments SODIUM (test code = NA) 138 mmol/L 136-145 N POTASSIUM (test code = K) 3.8 mmol/L 3.5-5.1 N CHLORIDE (test code = CL) 105.0 mmol/L 98-107 N CARBON DIOXIDE (test code = CO2) mmol/L 32 ANION GAP (test code = GAP) 20 GLUCOSE (test code = GLU) mg/dL 74-106 BLOOD UREA NITROGEN (test code = mg/dL 7-18 BUN) GLOMERULAR FILTRATION RATE (test mL/min >=60 code = GFR) CREATININE (test code = CREAT) mg/dL 0.7-1.3 BUN/CREATININE RATIO (test code 20 = BUN/CREA) CALCIUM (test code = CA) mg/dL 8.5-10.1 [id number] 21:41:00 Test Item Value Reference Range Interpretation Comments PHOSPHORUS (test code = PHOS) mg/dL 2.5-4.9 [id number] 21:41:00 Test Item Value Reference Range Interpretation Comments MAGNESIUM (test code = MAG) mg/dL 1.8-2.4 CALCIUM [id number] 21:41:00 Test Item Value Reference Range Interpretation Comments CALCIUM IONIZED (test code = FRANDY) 1.22 mmol/L 1.12-1.32 N [id number] 20:28:00 Test Item Value Reference Range Interpretation Comments GLUBED (test code = 135 mg/dL 74-106 H Performe d by certified GLUBED) 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 [facility] [id number] 18:47:00 Test Item Value Reference Range Interpretation Comments GLUBED (test code = 53 mg/dL 74-106 L Performe d by certified GLUBED) 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 [facility] BASIC METABOLIC [id number] 17:59:00 Test Item Value Reference Range Interpretation Comments SODIUM (test code = 138 mmol/L 136-145 N NA) POTASSIUM (test code 3.3 mmol/L 3.5-5.1 L = K) CHLORIDE (test code = 105.0 mmol/L 98-107 N CL) CARBON DIOXIDE (test 25.0 mmol/L 21-32 N code = CO2) ANION GAP (test code 11.3 10-20 N = GAP) GLUCOSE (test code = 127 mg/dL 74-106 H GLU) BLOOD UREA NITROGEN 13 mg/dL 7-18 N (test code = BUN) GLOMERULAR FILTRATION > 60 mL/min >=60 Estima loy GFR by RATE (test code = using Arash fied MDRD GFR) formula.Chronic kidney disease is defined as [facility] kidney damageor GFR <60 mL/min/1.73 m2 for >3 months. CREATININE (test code 0.70 mg/dL 0.7-1.3 N = CREAT) BUN/CREATININE RATIO 18.0 10-20 N (test code = BUN/CREA) CALCIUM (test code = 7.4 mg/dL 8.5-10.1 L CA) [id number] 17:43:00 Test Item Value Reference Range Interpretation Comments GLUBED (test code = 109 mg/dL 74-106 H Performe d by certified GLUBED) 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 [facility] [id number] 16:31:00 Test Item Value Reference Range Interpretation Comments GLUBED (test code = 153 mg/dL 74-106 H Performe d by certified GLUBED) 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 [facility] [id number] 16:31:00 Test Item Value Reference Range Interpretation Comments GLUBED (test code = 197 mg/dL 74-106 H Performe d by certified GLUBED) 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 [facility] BASIC METABOLIC [id number] 16:17:00 Test Item Value Reference Range Interpretation Comments SODIUM (test code = 138 mmol/L 136-145 N NA) POTASSIUM (test code 3.6 mmol/L 3.5-5.1 N = K) CHLORIDE (test code = 102.0 mmol/L 98-107 N CL) CARBON DIOXIDE (test 24.0 mmol/L 21-32 N code = CO2) ANION GAP (test code 15.6 10-20 N = GAP) GLUCOSE (test code = 223 mg/dL 74-106 H GLU) BLOOD UREA NITROGEN 15 mg/dL 7-18 N (test code = BUN) GLOMERULAR FILTRATION > 60 mL/min >=60 Estima loy GFR by RATE (test code = using Arash fied MDRD GFR) formula.Chronic kidney disease is defined as [facility] kidney damageor GFR <60 mL/min/1.73 m2 for >3 months. CREATININE (test code 0.70 mg/dL 0.7-1.3 N = CREAT) BUN/CREATININE RATIO 20.7 10-20 H (test code = BUN/CREA) CALCIUM (test code = 7.9 mg/dL 8.5-10.1 L CA) [id number] 16:17:00 Test Item Value Reference Range Interpretation Comments PHOSPHORUS (test code = PHOS) 1.9 mg/dL 2.5-4.9 L [id number] 16:17:00 Test Item Value Reference Range Interpretation Comments MAGNESIUM (test code = MAG) 1.9 mg/dL 1.8-2.4 N CALCIUM [id number] 16:17:00 Test Item Value Reference Range Interpretation Comments CALCIUM IONIZED (test code = FRANDY) 1.28 mmol/L 1.12-1.32 N BASIC METABOLIC [id number] 16:05:00 Test Item Value Reference Range Interpretation Comments SODIUM (test code = NA) 138 mmol/L 136-145 N POTASSIUM (test code = K) 3.6 mmol/L 3.5-5.1 N CHLORIDE (test code = CL) 102.0 mmol/L 98-107 N CARBON DIOXIDE (test code = CO2) mmol/L 21-32 ANION GAP (test code = GAP) 10-20 GLUCOSE (test code = GLU) mg/dL 74-106 BLOOD UREA NITROGEN (test code = mg/dL 7-18 BUN) GLOMERULAR FILTRATION RATE (test mL/min >=60 code = GFR) CREATININE (test code = CREAT) mg/dL 0.7-1.3 BUN/CREATININE RATIO (test code 10-20 = BUN/CREA) CALCIUM (test code = CA) mg/dL 8.5-10.1 [id number] 16:05:00 Test Item Value Reference Range Interpretation Comments PHOSPHORUS (test code = PHOS) mg/dL 2.5-4.9 [id number] 16:05:00 Test Item Value Reference Range Interpretation Comments MAGNESIUM (test code = MAG) mg/dL 1.8-2.4 CALCIUM [id number] 16:05:00 Test Item Value Reference Range Interpretation Comments CALCIUM IONIZED (test code = FRANDY) 1.28 mmol/L 1.12-1.32 N BASIC METABOLIC [id number] 15:59:00 Test Item Value Reference Range Interpretation Comments SODIUM (test code = NA) mmol/L 136-145 POTASSIUM (test code = K) mmol/L 3.5-5.1 CHLORIDE (test code = CL) mmol/L 98-107 CARBON DIOXIDE (test code = CO2) mmol/L 21-32 ANION GAP (test code = GAP) 10-20 GLUCOSE (test code = GLU) mg/dL 74-106 BLOOD UREA NITROGEN (test code = BUN) mg/dL 7-18 GLOMERULAR FILTRATION RATE (test code mL/min >=60 = GFR) CREATININE (test code = CREAT) mg/dL 0.7-1.3 BUN/CREATININE RATIO (test code = 10-20 BUN/CREA) CALCIUM (test code = CA) mg/dL 8.5-10.1 [id number] 15:59:00 Test Item Value Reference Range Interpretation Comments PHOSPHORUS (test code = PHOS) mg/dL 2.5-4.9 [id number] 15:59:00 Test Item Value Reference Range Interpretation Comments MAGNESIUM (test code = MAG) mg/dL 1.8-2.4 CALCIUM [id number] 15:59:00 Test Item Value Reference Range Interpretation Comments CALCIUM IONIZED (test code = FRANDY) 1.28 mmol/L 1.12-1.32 N [id number] 14:56:00 Test Item Value Reference Range Interpretation Comments GLUBED (test code = 249 mg/dL 74-106 H Performe d by certified GLUBED) 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 [facility] [id number] 14:01:00 Test Item Value Reference Range Interpretation Comments GLUBED (test code = 285 mg/dL 74-106 H Performe d by certified GLUBED) 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 [facility] [id number] 12:53:00 Test Item Value Reference Range Interpretation Comments GLUBED (test code = 324 mg/dL 74-106 H Performe d by certified GLUBED) 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 [facility] BASIC METABOLIC [id number] 12:29:00 Test Item Value Reference Range Interpretation Comments SODIUM (test code = 134 mmol/L 136-145 L RESULT V ERIFIED BY NA) REPEAT ANALYSIS POTASSIUM (test code 4.2 mmol/L 3.5-5.1 N = K) CHLORIDE (test code = 100.0 mmol/L 98-107 N CL) CARBON DIOXIDE (test 21.0 mmol/L 21-32 N code = CO2) ANION GAP (test code 17.2 10-20 N = GAP) GLUCOSE (test code = 311 mg/dL 74-106 H GLU) BLOOD UREA NITROGEN 16 mg/dL 7-18 N (test code = BUN) GLOMERULAR FILTRATION > 60 mL/min >=60 Estima loy GFR by RATE (test code = using Arash fied MDRD GFR) formula.Chronic kidney disease is defined as [facility] kidney damageor GFR <60 mL/min/1.73 m2 for >3 months. CREATININE (test code 0.70 mg/dL 0.7-1.3 N = CREAT) BUN/CREATININE RATIO 23.0 10-20 H (test code = BUN/CREA) CALCIUM (test code = 8.1 mg/dL 8.5-10.1 L CA) [id number] 12:29:00 Test Item Value Reference Range Interpretation Comments PHOSPHORUS (test code = PHOS) 2.4 mg/dL 2.5-4.9 L [id number] 12:29:00 Test Item Value Reference Range Interpretation Comments MAGNESIUM (test code = MAG) 1.9 mg/dL 1.8-2.4 N CALCIUM [id number] 12:29:00 Test Item Value Reference Range Interpretation Comments CALCIUM IONIZED (test code = FRANDY) 1.32 mmol/L 1.12-1.32 N BASIC METABOLIC [id number] 12:21:00 Test Item Value Reference Range Interpretation Comments SODIUM (test code = 134 mmol/L 136-145 L RESULT V ERIFIED BY NA) REPEAT ANALYSIS POTASSIUM (test code = 4.2 mmol/L 3.5-5.1 N K) CHLORIDE (test code = 100.0 mmol/L 98-107 N CL) CARBON DIOXIDE (test mmol/L 21-32 code = CO2) ANION GAP (test code = 10-20 GAP) GLUCOSE (test code = mg/dL 74-106 GLU) BLOOD UREA NITROGEN mg/dL 7-18 (test code = BUN) GLOMERULAR FILTRATION mL/min >=60 RATE (test code = GFR) CREATININE (test code mg/dL 0.7-1.3 = CREAT) BUN/CREATININE RATIO 10-20 (test code = BUN/CREA) CALCIUM (test code = mg/dL 8.5-10.1 CA) [id number] 12:21:00 Test Item Value Reference Range Interpretation Comments PHOSPHORUS (test code = PHOS) mg/dL 2.5-4.9 [id number] 12:21:00 Test Item Value Reference Range Interpretation Comments MAGNESIUM (test code = MAG) mg/dL 1.8-2.4 CALCIUM [id number] 12:21:00 Test Item Value Reference Range Interpretation Comments CALCIUM IONIZED (test code = FRANDY) 1.32 mmol/L 1.12-1.32 N BASIC METABOLIC [id number] 12:17:00 Test Item Value Reference Range Interpretation Comments SODIUM (test code = NA) mmol/L 136-145 POTASSIUM (test code = K) mmol/L 3.5-5.1 CHLORIDE (test code = CL) mmol/L 98-107 CARBON DIOXIDE (test code = CO2) mmol/L 21-32 ANION GAP (test code = GAP) 10-20 GLUCOSE (test code = GLU) mg/dL 74-106 BLOOD UREA NITROGEN (test code = BUN) mg/dL 7-18 GLOMERULAR FILTRATION RATE (test code mL/min >=60 = GFR) CREATININE (test code = CREAT) mg/dL 0.7-1.3 BUN/CREATININE RATIO (test code = 10-20 BUN/CREA) CALCIUM (test code = CA) mg/dL 8.5-10.1 [id number] 12:17:00 Test Item Value Reference Range Interpretation Comments PHOSPHORUS (test code = PHOS) mg/dL 2.5-4.9 [id number] 12:17:00 Test Item Value Reference Range Interpretation Comments MAGNESIUM (test code = MAG) mg/dL 1.8-2.4 CALCIUM [id number] 12:17:00 Test Item Value Reference Range Interpretation Comments CALCIUM IONIZED (test code = FRANDY) 1.32 mmol/L 1.12-1.32 N [id number] 11:59:00 Test Item Value Reference Range Interpretation Comments GLUBED (test code = 307 mg/dL 74-106 H Performe d by certified GLUBED) 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 [facility] [id number] 11:59:00 Test Item Value Reference Range Interpretation Comments GLUBED (test code = 307 mg/dL 74-106 H Performe d by certified GLUBED) 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 [facility] [id number] 11:59:00 Test Item Value Reference Range Interpretation Comments GLUBED (test code = 307 mg/dL 74-106 H Performe d by certified GLUBED) 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 [facility] [id number] 11:59:00 Test Item Value Reference Range Interpretation Comments GLUBED (test code = 307 mg/dL 74-106 H Performe d by certified GLUBED) 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 [facility] [id number] 10:55:00 Test Item Value Reference Range Interpretation Comments GLUBED (test code = 275 mg/dL 74-106 H Performe d by certified GLUBED) 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 [facility] DRUGS OF ABUSE SCREEN [id number] 10:21:00 Test Item Value Reference Range Interpretation Comments UA PH DIPSTICK (test 6.0 5.0-8.0 code = ANDRES) URN COCAINE (test NEGATIVE <300 ng/mL code = COCAURN) URN CANNABINOIDS POSITIVE <50 ng/mL A This test p rovides only a (test code = preliminary jacinto t result. CANNABURN) A morespecific alternate chemical method must be used in order t oobtain a confirmed rashi tical result. Gas chromatography/ mass spectrometry (G C/MS) is thepreferred co nfirmatory method. Other chemical confirmationmet hods are available. Cli nical consideration a nd professional ju dgment should be appli ed to any drug of abusete st result, particularly wh en preliminary pos itive resultsare used.Unconfirme d screening resul ts must not be used fornon-medical purposes (e.g., employme nt testing, legalt esting). URN AMPHETAMINE (test NEGATIVE <1000 ng/mL code = AMPHETURN) URN BARBITURATE (test NEGATIVE <200 ng/mL code = BARBITURN) URN BENZODIAZEPINE NEGATIVE <200 ng/mL (test code = BENZOURN) URN OPIATES (test POSITIVE <300 ng/mL A This test provides only a code = OPIATURN) preliminary test result. A morespecific alternate chemical method must be used in order t oobtain a confirmed rashi tical result. Gas chromatography/ mass spectrometry (G C/MS) is thepreferred co nfirmatory method. Other chemical confirmationmet hods are available. Cli nical consideration a nd professional ju dgment should be appli ed to any drug of abusete st result, particularly wh en preliminary pos itive resultsare used.Unconfirme d screening resul ts must not be used fornon-medical purposes (e.g., employme nt testing, legalt esting). URN PHENCYCLIDINE NEGATIVE <25 ng/mL (PCP) (test code = PHENCURN) URN METHADONE (test NEGATIVE <300 ng/mL code = METHAURN) [id number] 09:53:00 Test Item Value Reference Range Interpretation Comments GLUBED (test code = 282 mg/dL 74-106 H Performe d by certified GLUBED) 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 [facility] [id number] 08:53:00 Test Item Value Reference Range Interpretation Comments GLUBED (test code = 265 mg/dL 74-106 H Performe d by certified GLUBED) 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 [facility] [id number] 07:48:00 Test Item Value Reference Range Interpretation Comments GLUBED (test code = 219 mg/dL 74-106 H Performe d by certified GLUBED) 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 [facility] DRUGS OF ABUSE SCREEN [id number] 07:14:00 Test Item Value Reference Range Interpretation Comments UA PH DIPSTICK (test 5.0-8.0 code = ANDRES) URN COCAINE (test NEGATIVE <300 ng/mL code = COCAURN) URN CANNABINOIDS POSITIVE <50 ng/mL A This test p rovides only a (test code = preliminary jacinto t result. CANNABURN) A morespecific alternate chemical method must be used in order t oobtain a confirmed rashi tical result. Gas chromatography/ mass spectrometry (G C/MS) is thepreferred co nfirmatory method. Other chemical confirmationmet hods are available. Cli nical consideration a nd professional ju dgment should be appli ed to any drug of abusete st result, particularly wh en preliminary pos itive resultsare used.Unconfirme d screening resul ts must not be used fornon-medical purposes (e.g., employme nt testing, legalt esting). URN AMPHETAMINE (test NEGATIVE <1000 ng/mL code = AMPHETURN) URN BARBITURATE (test NEGATIVE <200 ng/mL code = BARBITURN) URN BENZODIAZEPINE NEGATIVE <200 ng/mL (test code = BENZOURN) URN OPIATES (test POSITIVE <300 ng/mL A This test provides only a code = OPIATURN) preliminary test result. A morespecific alternate chemical method must be used in order t oobtain a confirmed rashi tical result. Gas chromatography/ mass spectrometry (G C/MS) is thepreferred co nfirmatory method. Other chemical confirmationmet hods are available. Cli nical consideration a nd professional ju dgment should be appli ed to any drug of abusete st result, particularly wh en preliminary pos itive resultsare used.Unconfirme d screening resul ts must not be used fornon-medical purposes (e.g., employme nt testing, legalt esting). URN PHENCYCLIDINE NEGATIVE <25 ng/mL (PCP) (test code = PHENCURN) URN METHADONE (test NEGATIVE <300 ng/mL code = METHAURN) [id number] 06:29:00 Test Item Value Reference Range Interpretation Comments GLUBED (test code = 203 mg/dL 74-106 H Performe d by certified GLUBED) 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 [facility] [id number] 04:09:00 Test Item Value Reference Range Interpretation Comments GLUBED (test code = 149 mg/dL 74-106 H Performe d by certified GLUBED) 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 [facility] [id number] 03:03:00 Test Item Value Reference Range Interpretation Comments GLUBED (test code = 120 mg/dL 74-106 H Performe d by certified GLUBED) 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 [facility] [id number] 02:57:00 Test Item Value Reference Range Interpretation Comments PHOSPHORUS (test code = PHOS) 3.0 mg/dL 2.5-4.9 N [id number] 02:57:00 Test Item Value Reference Range Interpretation Comments MAGNESIUM (test code = MAG) 1.7 mg/dL 1.8-2.4 L CALCIUM [id number] 02:57:00 Test Item Value Reference Range Interpretation Comments CALCIUM IONIZED (test code = FRANDY) 1.27 mmol/L 1.12-1.32 N CBC W/AUTO [id number] 02:54:00 Test Item Value Reference Range Interpretation Comments WHITE BLOOD CELL (test 12.9 K/mm3 4.5-12.5 H code = WBC) RED BLOOD CELL (test 2.53 mill/mm3 4.0-5.8 L code = RBC) HEMOGLOBIN (test code 7.9 gram/dL 13.0-17.5 L = HGB) HEMATOCRIT (test code 23.8 % 42.0-52.0 L = HCT) MEAN CELL VOLUME (test 94.1 fL 80-98 RESUL T VERIFIED BY code = MCV) REPEAT ANALYSIS MEAN CELL HGB (test 31.2 picogram 27.0-33.0 N code = MCH) MEAN CELL HGB 33.2 gram/dL 33.0-36.0 N CONCETRATION (test code = MCHC) RED CELL DISTRIBUTION 13.2 % 11.6-16.2 N WIDTH (test code = RDW) RED CELL DISTRIBUTION 45.3 fL 37.0-51.0 N WIDTH SD (test code = RDW-SD) PLATELET COUNT (test 286 K/mm3 150-450 RESULT VERIFIED BY code = PLT) REPEAT ANALYSIS MEAN PLATELET VOLUME 9.5 fL 6.7-11.0 N (test code = MPV) NEUTROPHIL % (test 90.1 % 39.0-69.0 H code = NT%) IMMATURE GRANULOCYTE % 0.5 % 0.0-5.0 N (test code = IG%) LYMPHOCYTE % (test 6.4 % 25.0-55.0 L code = LY%) MONOCYTE % (test code 2.9 % 0.0-10.0 N = MO%) EOSINOPHIL % (test 0.0 % 0.0-5.0 N code = EO%) BASOPHIL % (test code 0.1 % 0.0-1.0 N = BA%) NUCLEATED RBC % (test 0.0 % 0-0 N code = NRBC%) NEUTROPHIL # (test 11.63 K/mm3 1.8-7.7 H code = NT#) IMMATURE GRANULOCYTE # 0.07 x10 3/uL 0-0.03 H (test code = IG#) LYMPHOCYTE # (test 0.83 K/mm3 1.0-5.0 L code = LY#) MONOCYTE # (test code 0.38 K/mm3 0-0.8 N = MO#) EOSINOPHIL # (test 0.00 K/mm3 0.0-0.5 N code = EO#) BASOPHIL # (test code 0.01 K/mm3 0.0-0.2 N = BA#) NUCLEATED RBC # (test 0.00 K/mm3 0.0-0.1 N code = NRBC#) [id number] 02:41:00 Test Item Value Reference Range Interpretation Comments PHOSPHORUS (test code = PHOS) 3.0 mg/dL 2.5-4.9 N [id number] 02:41:00 Test Item Value Reference Range Interpretation Comments MAGNESIUM (test code = MAG) 1.7 mg/dL 1.8-2.4 L CALCIUM [id number] 02:41:00 Test Item Value Reference Range Interpretation Comments CALCIUM IONIZED (test code = FRANDY) mmol/L 1.12-1.32 [id number] 02:36:00 Test Item Value Reference Range Interpretation Comments PHOSPHORUS (test code = PHOS) mg/dL 2.5-4.9 [id number] 02:36:00 Test Item Value Reference Range Interpretation Comments MAGNESIUM (test code = MAG) 1.7 mg/dL 1.8-2.4 L CALCIUM [id number] 02:36:00 Test Item Value Reference Range Interpretation Comments CALCIUM IONIZED (test code = FRANDY) mmol/L 1.12-1.32 [id number] 02:09:00 Test Item Value Reference Range Interpretation Comments GLUBED (test code = 112 mg/dL 74-106 H Performe d by certified GLUBED) 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 [facility] [id number] 00:38:00 Test Item Value Reference Range Interpretation Comments GLUBED (test code = 86 mg/dL 74-106 N Performe d by certified GLUBED) 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 [facility] [id number] 23:08:00 Test Item Value Reference Range Interpretation Comments GLUBED (test code = 89 mg/dL 74-106 N Performe d by certified GLUBED) 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 [facility] [id number] 22:11:00 Test Item Value Reference Range Interpretation Comments GLUBED (test code = 96 mg/dL 74-106 N Performe d by certified GLUBED) 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 [facility] [id number] 21:11:00 Test Item Value Reference Range Interpretation Comments GLUBED (test code = 110 mg/dL 74-106 H Performe d by certified GLUBED) 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 [facility] [id number] 19:54:00 Test Item Value Reference Range Interpretation Comments GLUBED (test code = 116 mg/dL 74-106 H Performe d by certified GLUBED) 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 [facility] [id number] 18:30:00 Test Item Value Reference Range Interpretation Comments GLUBED (test code = 136 mg/dL 74-106 H Performe d by certified GLUBED) 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 [facility] [id number] 17:03:00 Test Item Value Reference Range Interpretation Comments GLUBED (test code = 165 mg/dL 74-106 H Performe d by certified GLUBED) 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 [facility] [id number] 17:03:00 Test Item Value Reference Range Interpretation Comments GLUBED (test code = 181 mg/dL 74-106 H Performe d by certified GLUBED) 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 [facility] [id number] 15:38:00 Test Item Value Reference Range Interpretation Comments GLYCOSYLATED HEMOGLOBIN 9.8 % HbA1 MICHAEL OVIEDO DIAGNOSIS: (HA1C) (test code = HbA1C GLYHGB) (%) ----- ----- Diab etic >6.4Prediabetes 5.7 - 6.4Normal <5.7 ESTIMATED AVERAGE 235 MG/DL GLUCOSE (test code = EAG) T4 [id number] 15:38:00 Test Item Value Reference Range Interpretation Comments T4 FREE (test code = T4F) 1.08 ng/dL 0.76-1.46 N THYROID STIMULATING [id number] 15:38:00 Test Item Value Reference Range Interpretation Comments THYROID STIMULATING 0.302 uIU/mL 0.36-3.74 L TSH REFE RENCE HORMONE (test code = RANGES: EUTHYROID: TSH) 0.35 - 4.3 mIU/mL HYPO : > 5.5 mIU/mL HYPER : < 0.35 mIU/mL BASIC METABOLIC [id number] 15:13:00 Test Item Value Reference Range Interpretation Comments SODIUM (test code = 140 mmol/L 136-145 RESULT V ERIFIED BY NA) REPEAT ANALYSIS POTASSIUM (test code 3.9 mmol/L 3.5-5.1 N = K) CHLORIDE (test code = 106.0 mmol/L 98-107 N CL) CARBON DIOXIDE (test 16.0 mmol/L 21-32 L code = CO2) ANION GAP (test code 21.9 10-20 H = GAP) GLUCOSE (test code = 206 mg/dL 74-106 H GLU) BLOOD UREA NITROGEN 22 mg/dL 7-18 H RESULT V ERIFIED BY (test code = BUN) REPEAT GINI LYSIS GLOMERULAR FILTRATION > 60 mL/min >=60 Estima loy GFR by RATE (test code = using Arash fied MDRD GFR) formula.Chronic kidney disease is defined as ei er kidney damageor GFR <60 mL/min/1.73 m2 for >3 months. CREATININE (test code 0.90 mg/dL 0.7-1.3 N = CREAT) BUN/CREATININE RATIO 24.4 10-20 H (test code = BUN/CREA) CALCIUM (test code = 7.2 mg/dL 8.5-10.1 L CA) [id number] 14:25:00 Test Item Value Reference Range Interpretation Comments GLUBED (test code = 202 mg/dL 74-106 H Performe d by certified GLUBED) 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 [facility] [id number] 13:01:00 Test Item Value Reference Range Interpretation Comments GLUBED (test code = 299 mg/dL 74-106 H Performe d by certified GLUBED) 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 [facility] CBC W/AUTO [id number] 12:40:00 Test Item Value Reference Range Interpretation Comments WHITE BLOOD CELL (test code = 22.3 K/mm3 4.5-12.5 H WBC) RED BLOOD CELL (test code = 2.92 mill/mm3 4.0-5.8 L RBC) HEMOGLOBIN (test code = HGB) 9.1 gram/dL 13.0-17.5 L HEMATOCRIT (test code = HCT) 29.6 % 42.0-52.0 L MEAN CELL VOLUME (test code = 101.4 fL 80-98 H MCV) MEAN CELL HGB (test code = MCH) 31.2 picogram 27.0-33.0 N MEAN CELL HGB CONCETRATION 30.7 gram/dL 33.0-36.0 L (test code = MCHC) RED CELL DISTRIBUTION WIDTH 13.4 % 11.6-16.2 N (test code = RDW) RED CELL DISTRIBUTION WIDTH SD 49.9 fL 37.0-51.0 N (test code = RDW-SD) PLATELET COUNT (test code = 378 K/mm3 150-450 N PLT) MEAN PLATELET VOLUME (test code 10.7 fL 6.7-11.0 N = MPV) IMMATURE GRANULOCYTE % (test 0.5 % 0.0-5.0 N code = IG%) NUCLEATED RBC % (test code = 0.0 % 0-0 N NRBC%) NEUTROPHIL # (test code = NT#) 20.71 K/mm3 1.8-7.7 H IMMATURE GRANULOCYTE # (test 0.12 x10 3/uL 0-0.03 H code = IG#) LYMPHOCYTE # (test code = LY#) 0.52 K/mm3 1.0-5.0 L MONOCYTE # (test code = MO#) 0.95 K/mm3 0-0.8 H EOSINOPHIL # (test code = EO#) 0.01 K/mm3 0.0-0.5 N BASOPHIL # (test code = BA#) 0.02 K/mm3 0.0-0.2 N NUCLEATED RBC # (test code = 0.00 K/mm3 0.0-0.1 N NRBC#) MANUAL DIFF REQUIRED (test code YES = MDIFF) WBC [id number] 12:40:00 Test Item Value Reference Range Interpretation Comments STAIN ACCEPTABILITY (test STAIN ACCEPTABLE code = STN ACCEPTABLE) TOTAL CELLS COUNTED (test 115 #CELLS code = TCC) SEGMENTED NEUTROPHILS (test 94.8 % 39-69 H code = SEG) BAND NEUTROPHIL (test code = 0 % 0-10 N BAND) LYMPHOCYTE (test code = 0.9 % 25-55 L LYMPH) REACTIVE LYMPH (test code = 0 % RELYMPH) MONOCYTE (test code = MON) 4.3 % 0-10 N EOSINOPHIL (test code = EOS) 0 % 0.0-5.0 N BASOPHIL (test code = BASO) 0 % 0-1.0 N METAMYELOCYTE (test code = 0 % 0-0 N META) MYELOCYTE (test code = 0 % 0.0-0.0 N MYELO) PROMYELOCYTE (test code = 0 % 0-0 N PROM) POLYCHROMASIA (test code = 1+ POLC) POIKILOCYTOSIS (test code = 1+ POIK) ANISOCYTOSIS (test code = 1+ ANISO) MACROCYTOSIS (test code = 1+ MACR) CRENATED CELLS (test code = 3+ CREN) PLATELET ESTIMATE (test code ADEQUATE = PLTEST) PLATELET MORPHOLOGY (test NORMAL code = PLTMORPH) IMMATURE FORMS (test code = 0 % 0-0 N IMMAT) CBC W/AUTO [id number] 12:39:00 Test Item Value Reference Range Interpretation Comments WHITE BLOOD CELL (test code = 22.3 K/mm3 4.5-12.5 H WBC) RED BLOOD CELL (test code = 2.92 mill/mm3 4.0-5.8 L RBC) HEMOGLOBIN (test code = HGB) 9.1 gram/dL 13.0-17.5 L HEMATOCRIT (test code = HCT) 29.6 % 42.0-52.0 L MEAN CELL VOLUME (test code = 101.4 fL 80-98 H MCV) MEAN CELL HGB (test code = MCH) 31.2 picogram 27.0-33.0 N MEAN CELL HGB CONCETRATION 30.7 gram/dL 33.0-36.0 L (test code = MCHC) RED CELL DISTRIBUTION WIDTH 13.4 % 11.6-16.2 N (test code = RDW) RED CELL DISTRIBUTION WIDTH SD 49.9 fL 37.0-51.0 N (test code = RDW-SD) PLATELET COUNT (test code = 378 K/mm3 150-450 N PLT) MEAN PLATELET VOLUME (test code 10.7 fL 6.7-11.0 N = MPV) IMMATURE GRANULOCYTE % (test 0.5 % 0.0-5.0 N code = IG%) NUCLEATED RBC % (test code = 0.0 % 0-0 N NRBC%) NEUTROPHIL # (test code = NT#) 20.71 K/mm3 1.8-7.7 H IMMATURE GRANULOCYTE # (test 0.12 x10 3/uL 0-0.03 H code = IG#) LYMPHOCYTE # (test code = LY#) 0.52 K/mm3 1.0-5.0 L MONOCYTE # (test code = MO#) 0.95 K/mm3 0-0.8 H EOSINOPHIL # (test code = EO#) 0.01 K/mm3 0.0-0.5 N BASOPHIL # (test code = BA#) 0.02 K/mm3 0.0-0.2 N NUCLEATED RBC # (test code = 0.00 K/mm3 0.0-0.1 N NRBC#) MANUAL DIFF REQUIRED (test code YES = MDIFF) WBC [id number] 12:39:00 Test Item Value Reference Range Interpretation Comments STAIN ACCEPTABILITY (test code = STN ACCEPTABLE) TOTAL CELLS COUNTED (test code = TCC) #CELLS SEGMENTED NEUTROPHILS (test code = % 39-69 SEG) LYMPHOCYTE (test code = LYMPH) % 25-55 MONOCYTE (test code = MON) % 0-10 EOSINOPHIL (test code = EOS) % 0.0-5.0 CABOT RINGS (test code = CAB) MORPHOLOGY COMMENT (test code = MOC) PLATELET ESTIMATE (test code = PLTEST) PLATELET MORPHOLOGY (test code = PLTMORPH) CBC W/AUTO [id number] 12:39:00 Test Item Value Reference Range Interpretation Comments WHITE BLOOD CELL (test code = 22.3 K/mm3 4.5-12.5 H WBC) RED BLOOD CELL (test code = 2.92 mill/mm3 4.0-5.8 L RBC) HEMOGLOBIN (test code = HGB) 9.1 gram/dL 13.0-17.5 L HEMATOCRIT (test code = HCT) 29.6 % 42.0-52.0 L MEAN CELL VOLUME (test code = 101.4 fL 80-98 H MCV) MEAN CELL HGB (test code = MCH) 31.2 picogram 27.0-33.0 N MEAN CELL HGB CONCETRATION 30.7 gram/dL 33.0-36.0 L (test code = MCHC) RED CELL DISTRIBUTION WIDTH 13.4 % 11.6-16.2 N (test code = RDW) RED CELL DISTRIBUTION WIDTH SD 49.9 fL 37.0-51.0 N (test code = RDW-SD) PLATELET COUNT (test code = 378 K/mm3 150-450 N PLT) MEAN PLATELET VOLUME (test code 10.7 fL 6.7-11.0 N = MPV) IMMATURE GRANULOCYTE % (test 0.5 % 0.0-5.0 N code = IG%) NUCLEATED RBC % (test code = 0.0 % 0-0 N NRBC%) NEUTROPHIL # (test code = NT#) 20.71 K/mm3 1.8-7.7 H IMMATURE GRANULOCYTE # (test 0.12 x10 3/uL 0-0.03 H code = IG#) LYMPHOCYTE # (test code = LY#) 0.52 K/mm3 1.0-5.0 L MONOCYTE # (test code = MO#) 0.95 K/mm3 0-0.8 H EOSINOPHIL # (test code = EO#) 0.01 K/mm3 0.0-0.5 N BASOPHIL # (test code = BA#) 0.02 K/mm3 0.0-0.2 N NUCLEATED RBC # (test code = 0.00 K/mm3 0.0-0.1 N NRBC#) MANUAL DIFF REQUIRED (test code YES = MDIFF) WBC [id number] 12:39:00 Test Item Value Reference Range Interpretation Comments STAIN ACCEPTABILITY (test code = STN ACCEPTABLE) TOTAL CELLS COUNTED (test code = TCC) #CELLS SEGMENTED NEUTROPHILS (test code = % 39-69 SEG) LYMPHOCYTE (test code = LYMPH) % 25-55 MONOCYTE (test code = MON) % 0-10 EOSINOPHIL (test code = EOS) % 0.0-5.0 CABOT RINGS (test code = CAB) MORPHOLOGY COMMENT (test code = MOC) PLATELET ESTIMATE (test code = PLTEST) PLATELET MORPHOLOGY (test code = PLTMORPH) CBC W/AUTO [id number] 12:39:00 Test Item Value Reference Range Interpretation Comments WHITE BLOOD CELL (test code = 22.3 K/mm3 4.5-12.5 H WBC) RED BLOOD CELL (test code = 2.92 mill/mm3 4.0-5.8 L RBC) HEMOGLOBIN (test code = HGB) 9.1 gram/dL 13.0-17.5 L HEMATOCRIT (test code = HCT) 29.6 % 42.0-52.0 L MEAN CELL VOLUME (test code = 101.4 fL 80-98 H MCV) MEAN CELL HGB (test code = MCH) 31.2 picogram 27.0-33.0 N MEAN CELL HGB CONCETRATION 30.7 gram/dL 33.0-36.0 L (test code = MCHC) RED CELL DISTRIBUTION WIDTH 13.4 % 11.6-16.2 N (test code = RDW) RED CELL DISTRIBUTION WIDTH SD 49.9 fL 37.0-51.0 N (test code = RDW-SD) PLATELET COUNT (test code = 378 K/mm3 150-450 N PLT) MEAN PLATELET VOLUME (test code 10.7 fL 6.7-11.0 N = MPV) IMMATURE GRANULOCYTE % (test 0.5 % 0.0-5.0 N code = IG%) NUCLEATED RBC % (test code = 0.0 % 0-0 N NRBC%) NEUTROPHIL # (test code = NT#) 20.71 K/mm3 1.8-7.7 H IMMATURE GRANULOCYTE # (test 0.12 x10 3/uL 0-0.03 H code = IG#) LYMPHOCYTE # (test code = LY#) 0.52 K/mm3 1.0-5.0 L MONOCYTE # (test code = MO#) 0.95 K/mm3 0-0.8 H EOSINOPHIL # (test code = EO#) 0.01 K/mm3 0.0-0.5 N BASOPHIL # (test code = BA#) 0.02 K/mm3 0.0-0.2 N NUCLEATED RBC # (test code = 0.00 K/mm3 0.0-0.1 N NRBC#) MANUAL DIFF REQUIRED (test code YES = MDIFF) WBC [id number] 12:39:00 Test Item Value Reference Range Interpretation Comments STAIN ACCEPTABILITY (test code = STN ACCEPTABLE) TOTAL CELLS COUNTED (test code = TCC) #CELLS SEGMENTED NEUTROPHILS (test code = % 39-69 SEG) LYMPHOCYTE (test code = LYMPH) % 25-55 MONOCYTE (test code = MON) % 0-10 EOSINOPHIL (test code = EOS) % 0.0-5.0 MORPHOLOGY COMMENT (test code = MOC) PLATELET ESTIMATE (test code = PLTEST) PLATELET MORPHOLOGY (test code = PLTMORPH) CBC W/AUTO [id number] 12:39:00 Test Item Value Reference Range Interpretation Comments WHITE BLOOD CELL (test code = 22.3 K/mm3 4.5-12.5 H WBC) RED BLOOD CELL (test code = 2.92 mill/mm3 4.0-5.8 L RBC) HEMOGLOBIN (test code = HGB) 9.1 gram/dL 13.0-17.5 L HEMATOCRIT (test code = HCT) 29.6 % 42.0-52.0 L MEAN CELL VOLUME (test code = 101.4 fL 80-98 H MCV) MEAN CELL HGB (test code = MCH) 31.2 picogram 27.0-33.0 N MEAN CELL HGB CONCETRATION 30.7 gram/dL 33.0-36.0 L (test code = MCHC) RED CELL DISTRIBUTION WIDTH 13.4 % 11.6-16.2 N (test code = RDW) RED CELL DISTRIBUTION WIDTH SD 49.9 fL 37.0-51.0 N (test code = RDW-SD) PLATELET COUNT (test code = 378 K/mm3 150-450 N PLT) MEAN PLATELET VOLUME (test code 10.7 fL 6.7-11.0 N = MPV) IMMATURE GRANULOCYTE % (test 0.5 % 0.0-5.0 N code = IG%) NUCLEATED RBC % (test code = 0.0 % 0-0 N NRBC%) NEUTROPHIL # (test code = NT#) 20.71 K/mm3 1.8-7.7 H IMMATURE GRANULOCYTE # (test 0.12 x10 3/uL 0-0.03 H code = IG#) LYMPHOCYTE # (test code = LY#) 0.52 K/mm3 1.0-5.0 L MONOCYTE # (test code = MO#) 0.95 K/mm3 0-0.8 H EOSINOPHIL # (test code = EO#) 0.01 K/mm3 0.0-0.5 N BASOPHIL # (test code = BA#) 0.02 K/mm3 0.0-0.2 N NUCLEATED RBC # (test code = 0.00 K/mm3 0.0-0.1 N NRBC#) MANUAL DIFF REQUIRED (test code YES = MDIFF) WBC [id number] 12:39:00 Test Item Value Reference Range Interpretation Comments STAIN ACCEPTABILITY (test code = STN ACCEPTABLE) TOTAL CELLS COUNTED (test code = TCC) #CELLS SEGMENTED NEUTROPHILS (test code = % 39-69 SEG) LYMPHOCYTE (test code = LYMPH) % 25-55 MONOCYTE (test code = MON) % 0-10 MORPHOLOGY COMMENT (test code = MOC) PLATELET ESTIMATE (test code = PLTEST) PLATELET MORPHOLOGY (test code = PLTMORPH) [id number] 12:33:00 Test Item Value Reference Range Interpretation Comments GLUBED (test code = 392 mg/dL 74-106 H Performe d by certified GLUBED) 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 [facility] CBC W/AUTO [id number] 12:27:00 Test Item Value Reference Range Interpretation Comments WHITE BLOOD CELL (test code = 22.3 K/mm3 4.5-12.5 H WBC) RED BLOOD CELL (test code = 2.92 mill/mm3 4.0-5.8 L RBC) HEMOGLOBIN (test code = HGB) 9.1 gram/dL 13.0-17.5 L HEMATOCRIT (test code = HCT) 29.6 % 42.0-52.0 L MEAN CELL VOLUME (test code = 101.4 fL 80-98 H MCV) MEAN CELL HGB (test code = MCH) 31.2 picogram 27.0-33.0 N MEAN CELL HGB CONCETRATION 30.7 gram/dL 33.0-36.0 L (test code = MCHC) RED CELL DISTRIBUTION WIDTH 13.4 % 11.6-16.2 N (test code = RDW) RED CELL DISTRIBUTION WIDTH SD 49.9 fL 37.0-51.0 N (test code = RDW-SD) PLATELET COUNT (test code = 378 K/mm3 150-450 N PLT) MEAN PLATELET VOLUME (test code 10.7 fL 6.7-11.0 N = MPV) IMMATURE GRANULOCYTE % (test 0.5 % 0.0-5.0 N code = IG%) NUCLEATED RBC % (test code = 0.0 % 0-0 N NRBC%) NEUTROPHIL # (test code = NT#) 20.71 K/mm3 1.8-7.7 H IMMATURE GRANULOCYTE # (test 0.12 x10 3/uL 0-0.03 H code = IG#) LYMPHOCYTE # (test code = LY#) 0.52 K/mm3 1.0-5.0 L MONOCYTE # (test code = MO#) 0.95 K/mm3 0-0.8 H EOSINOPHIL # (test code = EO#) 0.01 K/mm3 0.0-0.5 N BASOPHIL # (test code = BA#) 0.02 K/mm3 0.0-0.2 N NUCLEATED RBC # (test code = 0.00 K/mm3 0.0-0.1 N NRBC#) MANUAL DIFF REQUIRED (test code YES = MDIFF) ARTERIAL BLOOD [id number] 12:15:00 Test Item Value Reference Range Interpretation Comments ARTERIAL BLOOD GAS PH 7.27 7.35-7.45 L (test code = PHA) ARTERIAL BLOOD GAS PCO2 19.4 mm Hg 35-45 LL Resu lts called (test code = PCO2A) to and r ead back by [facility] 06/24/2020; by [facility] ARTERIAL BLOOD GAS PO2 107.4 mmHg 80-100 H (test code = PO2A) BICARBONATE TOTAL HCO3 8.6 mmol/L 23.0-27.0 LL Resul ts called (test code = HCO3) to and re ad back by [facility] 06/24/2020; by [facility] BASE EXCESS (test code = -16.5 mmol/L -3.0-5.0 LL Res ults called LUKE) to and read back by [facility] 06/24/2020; by [facility] ABG O2 SATURATION (test 97.3 % 90.0-98.0 N code = SATA) ABG TYPE (test code = Arterial TYPEA) FIO2 (test code = FIO2A) 21.0 ABG SITE (test code = Rt RADIAL SITEA) ARTERY MODIFIED ALLENS (test Yes CHECK PERFORMED code = MODALL) HEMATOCRIT (test code = 28 % 42-52 L HCT/ABG) TOTAL HGB (test code = 9.4 gram/dL 13.0-17.5 L THB) HGB O2 SAT (test code = 96.6 % 94.00-98.00 N HBOSAT) CARBOXYHEMOGLOBIN (test 0.3 %totalHg 0.5-1.5 LL Resu lts called code = HOHGBT) to and read back by [facility] 06/24/2020; by [facility] METHEMOGLOBIN (test code 0.4 % 0.0-1.50 N = METHGB) O2 CONTENT (test code = 13.0 % vol 18.0-22.0 L O2CT) [id number] 12:15:00 Test Item Value Reference Range Interpretation Comments PaO2/FiO2 (test code = [id number]) mm/Hg ARTERIAL BLOOD [id number] 12:15:00 Test Item Value Reference Range Interpretation Comments ARTERIAL BLOOD GAS PH 7.27 7.35-7.45 L (test code = PHA) ARTERIAL BLOOD GAS PCO2 19.4 mm Hg 35-45 LL Resu lts called (test code = PCO2A) to and r ead back by [facility] 06/24/2020; by [facility] ARTERIAL BLOOD GAS PO2 107.4 mmHg 80-100 H (test code = PO2A) BICARBONATE TOTAL HCO3 8.6 mmol/L 23.0-27.0 LL Resul ts called (test code = HCO3) to and re ad back by [facility] 06/24/2020; by [facility] BASE EXCESS (test code = -16.5 mmol/L -3.0-5.0 LL Res ults called LUKE) to and read back by [facility] 06/24/2020; by [facility] ABG O2 SATURATION (test 97.3 % 90.0-98.0 N code = SATA) ABG TYPE (test code = Arterial TYPEA) FIO2 (test code = FIO2A) 21.0 ABG SITE (test code = Rt RADIAL SITEA) ARTERY MODIFIED ALLENS (test Yes CHECK PERFORMED code = MODALL) HEMATOCRIT (test code = 28 % 42-52 L HCT/ABG) TOTAL HGB (test code = 9.4 gram/dL 13.0-17.5 L THB) HGB O2 SAT (test code = 96.6 % 94.00-98.00 N HBOSAT) CARBOXYHEMOGLOBIN (test 0.3 %totalHg 0.5-1.5 LL Resu lts called code = HOHGBT) to and read back by jorge 12:15 - 06/24/2020; by monse METHEMOGLOBIN (test code 0.4 % 0.0-1.50 N = METHGB) O2 CONTENT (test code = 13.0 % vol 18.0-22.0 L O2CT) PaO2/[id number] 12:15:00 Test Item Value Reference Range Interpretation Comments PaO2/FiO2 (test code = [id number]) 511.40 mm/Hg LACTIC [id number] 12:05:00 Test Item Value Reference Range Interpretation Comments LACTIC ACID (test code = LACT) 1.4 mmol/L 0.4-1.9 N BASIC METABOLIC [id number] 11:24:00 Test Item Value Reference Range Interpretation Comments SODIUM (test code = 132 mmol/L 136-145 L NA) POTASSIUM (test code = 4.9 mmol/L 3.5-5.1 N K) CHLORIDE (test code = 95.0 mmol/L 98-107 L CL) CARBON DIOXIDE (test 6.0 mmol/L 21-32 L code = CO2) ANION GAP (test code = 35.9 10-20 H GAP) GLUCOSE (test code = 504 mg/dL 74-106 HH Results called to GLU) [id number] by JONATHON HUNTER 06/24/20 [id number] re sults verified and re ad back by Nurse? Y BLOOD UREA NITROGEN 31 mg/dL 7-18 H (test code = BUN) GLOMERULAR FILTRATION > 60 mL/min >=60 Estima loy GFR by RATE (test code = GFR) using Modified MDRD formula.Chronic kidney disease is defined as eith er kidney damageor GFR <60 mL/min/1.73 m2 for >3 months. CREATININE (test code 1.00 mg/dL 0.7-1.3 N = CREAT) BUN/CREATININE RATIO 30.1 10-20 H (test code = BUN/CREA) CALCIUM (test code = 8.1 mg/dL 8.5-10.1 L CA) BASIC METABOLIC [id number] 11:06:00 Test Item Value Reference Range Interpretation Comments SODIUM (test code = 133 mmol/L 136-145 L NA) POTASSIUM (test code = 4.7 mmol/L 3.5-5.1 N K) CHLORIDE (test code = 94.0 mmol/L 98-107 L CL) CARBON DIOXIDE (test 7.0 mmol/L 21-32 L code = CO2) ANION GAP (test code = 36.7 10-20 H GAP) GLUCOSE (test code = 493 mg/dL 74-106 H GLU) BLOOD UREA NITROGEN 31 mg/dL 7-18 H (test code = BUN) GLOMERULAR FILTRATION > 60 mL/min >=60 Estima loy GFR by RATE (test code = GFR) using Modified MDRD formula.Chronic kidney disease is defined as eith er kidney damageor GFR <60 mL/min/1.73 m2 for >3 months. CREATININE (test code 1.00 mg/dL 0.7-1.3 N = CREAT) BUN/CREATININE RATIO 30.4 10-20 H (test code = BUN/CREA) CALCIUM (test code = 8.3 mg/dL 8.5-10.1 L CA) BASIC METABOLIC [id number] 11:06:00 Test Item Value Reference Range Interpretation Comments SODIUM (test code = 133 mmol/L 136-145 L NA) POTASSIUM (test code = 4.7 mmol/L 3.5-5.1 N K) CHLORIDE (test code = 94.0 mmol/L 98-107 L CL) CARBON DIOXIDE (test 7.0 mmol/L 21-32 L code = CO2) ANION GAP (test code = 36.7 10-20 H GAP) GLUCOSE (test code = 494 mg/dL 74-106 H GLU) BLOOD UREA NITROGEN 30 mg/dL 7-18 H (test code = BUN) GLOMERULAR FILTRATION > 60 mL/min >=60 Estima loy GFR by RATE (test code = GFR) using Modified MDRD formula.Chronic kidney disease is defined as eith er kidney damageor GFR <60 mL/min/1.73 m2 for >3 months. CREATININE (test code 1.00 mg/dL 0.7-1.3 N = CREAT) BUN/CREATININE RATIO 30.0 10-20 H (test code = BUN/CREA) CALCIUM (test code = 8.0 mg/dL 8.5-10.1 L CA) SPECIMEN COMMENTS: Q4H while on insulin dripBASIC METABOLIC [id number] 11:06:00 Test Item Value Reference Range Interpretation Comments SODIUM (test code = NA) 132 mmol/L 136-145 L POTASSIUM (test code = K) 4.9 mmol/L 3.5-5.1 N CHLORIDE (test code = CL) 95.0 mmol/L 98-107 L CARBON DIOXIDE (test code = CO2) mmol/L 21-32 ANION GAP (test code = GAP) 10-20 GLUCOSE (test code = GLU) mg/dL 74-106 BLOOD UREA NITROGEN (test code = mg/dL 7-18 BUN) GLOMERULAR FILTRATION RATE (test mL/min >=60 code = GFR) CREATININE (test code = CREAT) mg/dL 0.7-1.3 BUN/CREATININE RATIO (test code = 10-20 BUN/CREA) CALCIUM (test code = CA) mg/dL 8.5-10.1 [id number] 09:51:00 Test Item Value Reference Range Interpretation Comments GLUBED (test code = 463 mg/dL 74-106 H Performe d by certified GLUBED) 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 [facility] [id number] 09:44:00 Test Item Value Reference Range Interpretation Comments LIPASE (test code = LIP) 27 U/L 73.0-393.0 L BASIC METABOLIC [id number] 09:29:00 Test Item Value Reference Range Interpretation Comments SODIUM (test code = 136 mmol/L 136-145 N NA) POTASSIUM (test code = 4.6 mmol/L 3.5-5.1 N K) CHLORIDE (test code = 96.0 mmol/L 98-107 L CL) CARBON DIOXIDE (test 9.0 mmol/L 21-32 L code = CO2) ANION GAP (test code = 35.6 10-20 H GAP) GLUCOSE (test code = 499 mg/dL 74-106 H GLU) BLOOD UREA NITROGEN 31 mg/dL 7-18 H RESULT V ERIFIED BY (test code = BUN) REPEAT GINI LYSIS GLOMERULAR FILTRATION > 60 mL/min >=60 Estima loy GFR by RATE (test code = GFR) using Modified MDRD formula.Chronic kidney disease is defined as eith er kidney damageor GFR <60 mL/min/1.73 m2 for >3 months. CREATININE (test code 1.00 mg/dL 0.7-1.3 N = CREAT) BUN/CREATININE RATIO 31.0 10-20 H (test code = BUN/CREA) CALCIUM (test code = 8.7 mg/dL 8.5-10.1 N CA) SPECIMEN COMMENTS: Q4H while on insulin dripSPECIMEN COMMENTS: Q8H while on insulin [id number] 09:29:00 Test Item Value Reference Range Interpretation Comments MAGNESIUM (test code = MAG) 1.9 mg/dL 1.8-2.4 N SPECIMEN COMMENTS: Q4H while on insulin dripSPECIMEN COMMENTS: Q8H while on insulin dripLIPID PROFILE (CORONARY RISK)2020-06-24 08:57:00 Test Item Value Reference Range Interpretation Comments TRIGLYCERIDES (test 112 mg/dL 20-150 N code = TRIG) CHOLESTEROL (test code 145 mg/dL 0-200 N = CHOL) CHOLESTEROL/HDL RATIO 1.0 RATIO 0-4.9 N RISK A SSOCIATED WITH (test code = CHOLHDL) CHOL/H DL RATIOS: Risk M kareem Female1/[address] RAGE 3.43 3.27AVERAGE 4.97 4.4 40X AVERAGE 9.[address] RAGE 23.39 11.04 REFERENCE VALUE IS RELATED TO RISK LEVELS ASRECOMMENDED B Y THE REJI. HEART, WENDY G, AND BLOOD INST. HDL CHOLESTEROL (test 74 mg/dL 40-60 H code = HDL) LIPOPROTEIN LDL (test 53 mg/dL 100-129 L ====== code = LDL) ======= Referen ce Interval: mg/dL mmol/L--------- ------- ------- ------O ptimal <100 <2.6Near/above optimal 100-12 9 2.6-3.3Borderl ine High 130-159 3.4-4.1High 160 -189 4.1-4.9Very High >=190 >=4.9========= This LDL result is a direct measurement.=== ====== LACTIC [id number] 08:53:00 Test Item Value Reference Range Interpretation Comments LACTIC ACID (test 2.2 mmol/L 0.4-1.9 HH Results ca lled to code = LACT) [id number] by JONATHON HUNTER 06/24/20 [id number] itical results verifie d and read back by Mary Kate rse? Y BASIC METABOLIC [id number] 08:49:00 Test Item Value Reference Range Interpretation Comments SODIUM (test code = NA) 136 mmol/L 136-145 N POTASSIUM (test code = K) 4.6 mmol/L 3.5-5.1 N CHLORIDE (test code = CL) 96.0 mmol/L 98-107 L CARBON DIOXIDE (test code = CO2) mmol/L 21-32 ANION GAP (test code = GAP) 10-20 GLUCOSE (test code = GLU) mg/dL 74-106 BLOOD UREA NITROGEN (test code = mg/dL 7-18 BUN) GLOMERULAR FILTRATION RATE (test mL/min >=60 code = GFR) CREATININE (test code = CREAT) mg/dL 0.7-1.3 BUN/CREATININE RATIO (test code = 10-20 BUN/CREA) CALCIUM (test code = CA) mg/dL 8.5-10.1 SPECIMEN COMMENTS: Q4H while on insulin dripSPECIMEN COMMENTS: Q8H while on insulin [id number] 08:49:00 Test Item Value Reference Range Interpretation Comments MAGNESIUM (test code = MAG) mg/dL 1.8-2.4 SPECIMEN COMMENTS: Q4H while on insulin dripSPECIMEN COMMENTS: Q8H while on insulin [id number] 08:36:00 Test Item Value Reference Range Interpretation Comments GLUBED (test code = > 500 mg/dL 74-106 HH Performe d by certified GLUBED) 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 [facility] - XR CHEST 1 [id number] 07:50:00 [facility] : 1995 Sex: M FAX: Madhuri Rubalcava MD [phone] [place]: [address] St: ADM Name: ELVIS FOX [facility] : 1995 Age/S: 25/M [facility] Unit #: [id number] [place]: [place] [address] Phys: Madhuri Edmonds MD Acct: [id number] Dis Date: Status: ADM IN PHONE #: [phone] Exam Date: 06/23/2020 0750 FAX #: [phone] Reason: Leukocytosis EXAMS: CPT CODE: [id number] XR CHEST 1V 42045 EXAM: Chest X-ray, 1 view; CLINICAL HISTORY: DKA, leukocytosis; FINDINGS: The lungs are clear, no infiltrates, no edema; no effusions; no pneumothorax; normal cardiomediastinal silhouette. IMPRESSION: Normal chest x-ray. Location code: [facility] at 0750 Reported and signed by: Davis Toure M.D. CC: Madhuri Edmonds MD Technologist: RT FELA(R) Trnscrd Date/Time/By: 06/24/2020 (0750) : By: Justine Orig Print D/T: S: 06/24/2020 (0753) PAGE 1 Signed Report- XR CHEST 1 [id number] 07:50:00 [facility] : 1995 Sex: M FAX: Madhuri Rubalcava MD [phone] [place]: St: DIS Name: ELVIS FOX [facility] : 1995 Age/S: 25/M [address] [facility] Unit #: [id number] Loc: V.S[address] [place] [address] Phys: Madhuri Edmonds MD Acct: [id number] Dis Date: [id number] Status: DIS IN PHONE #: [phone] Exam Date: 06/23/20201 FAX #: [phone] Reason: Leukocytosis EXAMS: CPT CODE: [id number] XR CHEST 1V 67300 EXAM: Chest X-ray, 1 view; CLINICAL HISTORY: DKA, leukocytosis; FINDINGS: The lungs are clear, no infiltrates, no edema; no effusions; no pneumothorax; normal cardiomediastinal silhouette. IMPRESSION: Normal chest x-ray. Location code: [facility] at 0750 Reported and signed by: Davis Toure M.D. CC: Madhuri Edmonds MD Technologist: FERMIN MENDEZ RT(R) Trnscrd Date/Time/By: 06/24/2020 (075) : By: TavonGRW Orig Print D/T: S: 06/24/2020 (0753) PAGE 1 Signed ReportBASIC METABOLIC [id number] 06:43:00 Test Item Value Reference Range Interpretation Comments SODIUM (test code = 139 mmol/L 136-145 N NA) POTASSIUM (test code 4.1 mmol/L 3.5-5.1 N = K) CHLORIDE (test code = 101.0 mmol/L 98-107 N CL) CARBON DIOXIDE (test 12.0 mmol/L 21-32 L code = CO2) ANION GAP (test code 30.1 10-20 H = GAP) GLUCOSE (test code = 445 mg/dL 74-106 H GLU) BLOOD UREA NITROGEN 24 mg/dL 7-18 H RESULT V ERIFIED BY (test code = BUN) REPEAT GINI LYSIS GLOMERULAR FILTRATION > 60 mL/min >=60 Estima loy GFR by RATE (test code = using Arash fied MDRD GFR) formula.Chronic kidney disease is defined as eith er kidney damageor GFR <60 mL/min/1.73 m2 for >3 months. CREATININE (test code 1.00 mg/dL 0.7-1.3 N = CREAT) BUN/CREATININE RATIO 24.0 10-20 H (test code = BUN/CREA) CALCIUM (test code = 8.4 mg/dL 8.5-10.1 L CA) [id number] 06:43:00 Test Item Value Reference Range Interpretation Comments PHOSPHORUS (test code = PHOS) 4.2 mg/dL 2.5-4.9 N [id number] 06:43:00 Test Item Value Reference Range Interpretation Comments MAGNESIUM (test code = MAG) 1.9 mg/dL 1.8-2.4 N CALCIUM [id number] 06:43:00 Test Item Value Reference Range Interpretation Comments CALCIUM IONIZED (test code = FRANDY) 1.28 mmol/L 1.12-1.32 N CBC W/MANUAL [id number] 06:36:00 Test Item Value Reference Range Interpretation Comments WHITE BLOOD CELL (test code 25.1 K/mm3 4.5-12.5 H = WBC) RED BLOOD CELL (test code = 3.16 mill/mm3 4.0-5.8 L RBC) HEMOGLOBIN (test code = HGB) 9.8 gram/dL 13.0-17.5 L HEMATOCRIT (test code = HCT) 31.0 % 42.0-52.0 L MEAN CELL VOLUME (test code 98.1 fL 80-98 H = MCV) MEAN CELL HGB (test code = 31.0 picogram 27.0-33.0 N MCH) MEAN CELL HGB CONCETRATION 31.6 gram/dL 33.0-36.0 L (test code = MCHC) RED CELL DISTRIBUTION WIDTH 13.3 % 11.6-16.2 N (test code = RDW) RED CELL DISTRIBUTION WIDTH 47.8 fL 37.0-51.0 N SD (test code = RDW-SD) PLATELET COUNT (test code = 409 K/mm3 150-450 N PLT) MEAN PLATELET VOLUME (test 9.8 fL 6.7-11.0 N code = MPV) IMMATURE GRANULOCYTE % (test 0.6 % 0.0-5.0 N code = IG%) NUCLEATED RBC % (test code = 0.0 % 0-0 N NRBC%) NEUTROPHIL # (test code = 22.45 K/mm3 1.8-7.7 H NT#) IMMATURE GRANULOCYTE # (test 0.15 x10 3/uL 0-0.03 H code = IG#) LYMPHOCYTE # (test code = 0.65 K/mm3 1.0-5.0 L LY#) MONOCYTE # (test code = MO#) 1.72 K/mm3 0-0.8 H EOSINOPHIL # (test code = 0.04 K/mm3 0.0-0.5 N EO#) BASOPHIL # (test code = BA#) 0.04 K/mm3 0.0-0.2 N NUCLEATED RBC # (test code = 0.00 K/mm3 0.0-0.1 N NRBC#) MANUAL DIFF REQUIRED (test YES code = MDIFF) STAIN ACCEPTABILITY (test STAIN ACCEPTABLE code = STN ACCEPTABLE) TOTAL CELLS COUNTED (test 114 #CELLS code = TCC) SEGMENTED NEUTROPHILS (test 93.8 % 39-69 H code = SEG) BAND NEUTROPHIL (test code = 0 % 0-10 N BAND) LYMPHOCYTE (test code = 0.9 % 25-55 L LYMPH) REACTIVE LYMPH (test code = 0.9 % RELYMPH) MONOCYTE (test code = MON) 4.4 % 0-10 N EOSINOPHIL (test code = EOS) 0 % 0.0-5.0 N BASOPHIL (test code = BASO) 0 % 0-1.0 N METAMYELOCYTE (test code = 0 % 0-0 N META) MYELOCYTE (test code = 0 % 0.0-0.0 N MYELO) PROMYELOCYTE (test code = 0 % 0-0 N PROM) POLYCHROMASIA (test code = 1+ POLC) POIKILOCYTOSIS (test code = 2+ POIK) ANISOCYTOSIS (test code = 2+ ANISO) MACROCYTOSIS (test code = 2+ MACR) INGRID CELLS (test code = 1+ NONE INGRID) ACANTHOCYTES (test code = 2+ NONE ACAN) PLATELET ESTIMATE (test code ADEQUATE = PLTEST) PLATELET MORPHOLOGY (test NORMAL code = PLTMORPH) IMMATURE FORMS (test code = 0 % 0-0 N IMMAT) [id number] 06:10:00 Test Item Value Reference Range Interpretation Comments GLYCOSYLATED HEMOGLOBIN 9.9 % HbA1 MICHAEL OVIEDO DIAGNOSIS: (HA1C) (test code = HbA1C GLYHGB) (%) ----- ----- Diab etic >6.4Prediabetes 5.7 - 6.4Normal <5.7 ESTIMATED AVERAGE 237 MG/DL GLUCOSE (test code = EAG) BASIC METABOLIC [id number] 06:00:00 Test Item Value Reference Range Interpretation Comments SODIUM (test code = NA) 139 mmol/L 136-145 N POTASSIUM (test code = K) 4.1 mmol/L 3.5-5.1 N CHLORIDE (test code = CL) 101.0 mmol/L 98-107 N CARBON DIOXIDE (test code = CO2) mmol/L 21-32 ANION GAP (test code = GAP) 10-20 GLUCOSE (test code = GLU) mg/dL 74-106 BLOOD UREA NITROGEN (test code = mg/dL 7-18 BUN) GLOMERULAR FILTRATION RATE (test mL/min >=60 code = GFR) CREATININE (test code = CREAT) mg/dL 0.7-1.3 BUN/CREATININE RATIO (test code 10-20 = BUN/CREA) CALCIUM (test code = CA) mg/dL 8.5-10.1 [id number] 06:00:00 Test Item Value Reference Range Interpretation Comments PHOSPHORUS (test code = PHOS) mg/dL 2.5-4.9 [id number] 06:00:00 Test Item Value Reference Range Interpretation Comments MAGNESIUM (test code = MAG) mg/dL 1.8-2.4 CALCIUM [id number] 06:00:00 Test Item Value Reference Range Interpretation Comments CALCIUM IONIZED (test code = FRANDY) 1.28 mmol/L 1.12-1.32 N BASIC METABOLIC [id number] 05:51:00 Test Item Value Reference Range Interpretation Comments SODIUM (test code = NA) mmol/L 136-145 POTASSIUM (test code = K) mmol/L 3.5-5.1 CHLORIDE (test code = CL) mmol/L 98-107 CARBON DIOXIDE (test code = CO2) mmol/L 21-32 ANION GAP (test code = GAP) 10-20 GLUCOSE (test code = GLU) mg/dL 74-106 BLOOD UREA NITROGEN (test code = BUN) mg/dL 7-18 GLOMERULAR FILTRATION RATE (test code mL/min >=60 = GFR) CREATININE (test code = CREAT) mg/dL 0.7-1.3 BUN/CREATININE RATIO (test code = 10-20 BUN/CREA) CALCIUM (test code = CA) mg/dL 8.5-10.1 [id number] 05:51:00 Test Item Value Reference Range Interpretation Comments PHOSPHORUS (test code = PHOS) mg/dL 2.5-4.9 [id number] 05:51:00 Test Item Value Reference Range Interpretation Comments MAGNESIUM (test code = MAG) mg/dL 1.8-2.4 CALCIUM [id number] 05:51:00 Test Item Value Reference Range Interpretation Comments CALCIUM IONIZED (test code = FRANDY) 1.28 mmol/L 1.12-1.32 N CBC W/MANUAL [id number] 05:06:00 Test Item Value Reference Range Interpretation Comments WHITE BLOOD CELL (test code = 25.1 K/mm3 4.5-12.5 H WBC) RED BLOOD CELL (test code = 3.16 mill/mm3 4.0-5.8 L RBC) HEMOGLOBIN (test code = HGB) 9.8 gram/dL 13.0-17.5 L HEMATOCRIT (test code = HCT) 31.0 % 42.0-52.0 L MEAN CELL VOLUME (test code = 98.1 fL 80-98 H MCV) MEAN CELL HGB (test code = MCH) 31.0 picogram 27.0-33.0 N MEAN CELL HGB CONCETRATION 31.6 gram/dL 33.0-36.0 L (test code = MCHC) RED CELL DISTRIBUTION WIDTH 13.3 % 11.6-16.2 N (test code = RDW) RED CELL DISTRIBUTION WIDTH SD 47.8 fL 37.0-51.0 N (test code = RDW-SD) PLATELET COUNT (test code = 409 K/mm3 150-450 N PLT) MEAN PLATELET VOLUME (test code 9.8 fL 6.7-11.0 N = MPV) IMMATURE GRANULOCYTE % (test 0.6 % 0.0-5.0 N code = IG%) NUCLEATED RBC % (test code = 0.0 % 0-0 N NRBC%) NEUTROPHIL # (test code = NT#) 22.45 K/mm3 1.8-7.7 H IMMATURE GRANULOCYTE # (test 0.15 x10 3/uL 0-0.03 H code = IG#) LYMPHOCYTE # (test code = LY#) 0.65 K/mm3 1.0-5.0 L MONOCYTE # (test code = MO#) 1.72 K/mm3 0-0.8 H EOSINOPHIL # (test code = EO#) 0.04 K/mm3 0.0-0.5 N BASOPHIL # (test code = BA#) 0.04 K/mm3 0.0-0.2 N NUCLEATED RBC # (test code = 0.00 K/mm3 0.0-0.1 N NRBC#) MANUAL DIFF REQUIRED (test code YES = MDIFF) STAIN ACCEPTABILITY (test code = STN ACCEPTABLE) TOTAL CELLS COUNTED (test code #CELLS = TCC) SEGMENTED NEUTROPHILS (test % 39-69 code = SEG) LYMPHOCYTE (test code = LYMPH) % 25-55 MONOCYTE (test code = MON) % 0-10 EOSINOPHIL (test code = EOS) % 0.0-5.0 CABOT RINGS (test code = CAB) MORPHOLOGY COMMENT (test code = MOC) PLATELET ESTIMATE (test code = PLTEST) PLATELET MORPHOLOGY (test code = PLTMORPH) CBC W/MANUAL [id number] 05:06:00 Test Item Value Reference Range Interpretation Comments WHITE BLOOD CELL (test code = 25.1 K/mm3 4.5-12.5 H WBC) RED BLOOD CELL (test code = 3.16 mill/mm3 4.0-5.8 L RBC) HEMOGLOBIN (test code = HGB) 9.8 gram/dL 13.0-17.5 L HEMATOCRIT (test code = HCT) 31.0 % 42.0-52.0 L MEAN CELL VOLUME (test code = 98.1 fL 80-98 H MCV) MEAN CELL HGB (test code = MCH) 31.0 picogram 27.0-33.0 N MEAN CELL HGB CONCETRATION 31.6 gram/dL 33.0-36.0 L (test code = MCHC) RED CELL DISTRIBUTION WIDTH 13.3 % 11.6-16.2 N (test code = RDW) RED CELL DISTRIBUTION WIDTH SD 47.8 fL 37.0-51.0 N (test code = RDW-SD) PLATELET COUNT (test code = 409 K/mm3 150-450 N PLT) MEAN PLATELET VOLUME (test code 9.8 fL 6.7-11.0 N = MPV) IMMATURE GRANULOCYTE % (test 0.6 % 0.0-5.0 N code = IG%) NUCLEATED RBC % (test code = 0.0 % 0-0 N NRBC%) NEUTROPHIL # (test code = NT#) 22.45 K/mm3 1.8-7.7 H IMMATURE GRANULOCYTE # (test 0.15 x10 3/uL 0-0.03 H code = IG#) LYMPHOCYTE # (test code = LY#) 0.65 K/mm3 1.0-5.0 L MONOCYTE # (test code = MO#) 1.72 K/mm3 0-0.8 H EOSINOPHIL # (test code = EO#) 0.04 K/mm3 0.0-0.5 N BASOPHIL # (test code = BA#) 0.04 K/mm3 0.0-0.2 N NUCLEATED RBC # (test code = 0.00 K/mm3 0.0-0.1 N NRBC#) MANUAL DIFF REQUIRED (test code YES = MDIFF) STAIN ACCEPTABILITY (test code = STN ACCEPTABLE) TOTAL CELLS COUNTED (test code #CELLS = TCC) SEGMENTED NEUTROPHILS (test % 39-69 code = SEG) LYMPHOCYTE (test code = LYMPH) % 25-55 MONOCYTE (test code = MON) % 0-10 EOSINOPHIL (test code = EOS) % 0.0-5.0 CABOT RINGS (test code = CAB) MORPHOLOGY COMMENT (test code = MOC) PLATELET ESTIMATE (test code = PLTEST) PLATELET MORPHOLOGY (test code = PLTMORPH) CBC W/MANUAL [id number] 05:06:00 Test Item Value Reference Range Interpretation Comments WHITE BLOOD CELL (test code = 25.1 K/mm3 4.5-12.5 H WBC) RED BLOOD CELL (test code = 3.16 mill/mm3 4.0-5.8 L RBC) HEMOGLOBIN (test code = HGB) 9.8 gram/dL 13.0-17.5 L HEMATOCRIT (test code = HCT) 31.0 % 42.0-52.0 L MEAN CELL VOLUME (test code = 98.1 fL 80-98 H MCV) MEAN CELL HGB (test code = MCH) 31.0 picogram 27.0-33.0 N MEAN CELL HGB CONCETRATION 31.6 gram/dL 33.0-36.0 L (test code = MCHC) RED CELL DISTRIBUTION WIDTH 13.3 % 11.6-16.2 N (test code = RDW) RED CELL DISTRIBUTION WIDTH SD 47.8 fL 37.0-51.0 N (test code = RDW-SD) PLATELET COUNT (test code = 409 K/mm3 150-450 N PLT) MEAN PLATELET VOLUME (test code 9.8 fL 6.7-11.0 N = MPV) IMMATURE GRANULOCYTE % (test 0.6 % 0.0-5.0 N code = IG%) NUCLEATED RBC % (test code = 0.0 % 0-0 N NRBC%) NEUTROPHIL # (test code = NT#) 22.45 K/mm3 1.8-7.7 H IMMATURE GRANULOCYTE # (test 0.15 x10 3/uL 0-0.03 H code = IG#) LYMPHOCYTE # (test code = LY#) 0.65 K/mm3 1.0-5.0 L MONOCYTE # (test code = MO#) 1.72 K/mm3 0-0.8 H EOSINOPHIL # (test code = EO#) 0.04 K/mm3 0.0-0.5 N BASOPHIL # (test code = BA#) 0.04 K/mm3 0.0-0.2 N NUCLEATED RBC # (test code = 0.00 K/mm3 0.0-0.1 N NRBC#) MANUAL DIFF REQUIRED (test code YES = MDIFF) STAIN ACCEPTABILITY (test code = STN ACCEPTABLE) TOTAL CELLS COUNTED (test code #CELLS = TCC) SEGMENTED NEUTROPHILS (test % 39-69 code = SEG) LYMPHOCYTE (test code = LYMPH) % 25-55 MONOCYTE (test code = MON) % 0-10 EOSINOPHIL (test code = EOS) % 0.0-5.0 MORPHOLOGY COMMENT (test code = MOC) PLATELET ESTIMATE (test code = PLTEST) PLATELET MORPHOLOGY (test code = PLTMORPH) CBC W/MANUAL [id number] 05:06:00 Test Item Value Reference Range Interpretation Comments WHITE BLOOD CELL (test code = 25.1 K/mm3 4.5-12.5 H WBC) RED BLOOD CELL (test code = 3.16 mill/mm3 4.0-5.8 L RBC) HEMOGLOBIN (test code = HGB) 9.8 gram/dL 13.0-17.5 L HEMATOCRIT (test code = HCT) 31.0 % 42.0-52.0 L MEAN CELL VOLUME (test code = 98.1 fL 80-98 H MCV) MEAN CELL HGB (test code = MCH) 31.0 picogram 27.0-33.0 N MEAN CELL HGB CONCETRATION 31.6 gram/dL 33.0-36.0 L (test code = MCHC) RED CELL DISTRIBUTION WIDTH 13.3 % 11.6-16.2 N (test code = RDW) RED CELL DISTRIBUTION WIDTH SD 47.8 fL 37.0-51.0 N (test code = RDW-SD) PLATELET COUNT (test code = 409 K/mm3 150-450 N PLT) MEAN PLATELET VOLUME (test code 9.8 fL 6.7-11.0 N = MPV) IMMATURE GRANULOCYTE % (test 0.6 % 0.0-5.0 N code = IG%) NUCLEATED RBC % (test code = 0.0 % 0-0 N NRBC%) NEUTROPHIL # (test code = NT#) 22.45 K/mm3 1.8-7.7 H IMMATURE GRANULOCYTE # (test 0.15 x10 3/uL 0-0.03 H code = IG#) LYMPHOCYTE # (test code = LY#) 0.65 K/mm3 1.0-5.0 L MONOCYTE # (test code = MO#) 1.72 K/mm3 0-0.8 H EOSINOPHIL # (test code = EO#) 0.04 K/mm3 0.0-0.5 N BASOPHIL # (test code = BA#) 0.04 K/mm3 0.0-0.2 N NUCLEATED RBC # (test code = 0.00 K/mm3 0.0-0.1 N NRBC#) MANUAL DIFF REQUIRED (test code YES = MDIFF) STAIN ACCEPTABILITY (test code = STN ACCEPTABLE) TOTAL CELLS COUNTED (test code #CELLS = TCC) SEGMENTED NEUTROPHILS (test % 39-69 code = SEG) LYMPHOCYTE (test code = LYMPH) % 25-55 MONOCYTE (test code = MON) % 0-10 MORPHOLOGY COMMENT (test code = MOC) PLATELET ESTIMATE (test code = PLTEST) PLATELET MORPHOLOGY (test code = PLTMORPH) CBC W/MANUAL [id number] 05:06:00 Test Item Value Reference Range Interpretation Comments WHITE BLOOD CELL (test code = 25.1 K/mm3 4.5-12.5 H WBC) RED BLOOD CELL (test code = 3.16 mill/mm3 4.0-5.8 L RBC) HEMOGLOBIN (test code = HGB) 9.8 gram/dL 13.0-17.5 L HEMATOCRIT (test code = HCT) 31.0 % 42.0-52.0 L MEAN CELL VOLUME (test code = 98.1 fL 80-98 H MCV) MEAN CELL HGB (test code = MCH) 31.0 picogram 27.0-33.0 N MEAN CELL HGB CONCETRATION 31.6 gram/dL 33.0-36.0 L (test code = MCHC) RED CELL DISTRIBUTION WIDTH 13.3 % 11.6-16.2 N (test code = RDW) RED CELL DISTRIBUTION WIDTH SD 47.8 fL 37.0-51.0 N (test code = RDW-SD) PLATELET COUNT (test code = 409 K/mm3 150-450 N PLT) MEAN PLATELET VOLUME (test code 9.8 fL 6.7-11.0 N = MPV) IMMATURE GRANULOCYTE % (test 0.6 % 0.0-5.0 N code = IG%) NUCLEATED RBC % (test code = 0.0 % 0-0 N NRBC%) NEUTROPHIL # (test code = NT#) 22.45 K/mm3 1.8-7.7 H IMMATURE GRANULOCYTE # (test 0.15 x10 3/uL 0-0.03 H code = IG#) LYMPHOCYTE # (test code = LY#) 0.65 K/mm3 1.0-5.0 L MONOCYTE # (test code = MO#) 1.72 K/mm3 0-0.8 H EOSINOPHIL # (test code = EO#) 0.04 K/mm3 0.0-0.5 N BASOPHIL # (test code = BA#) 0.04 K/mm3 0.0-0.2 N NUCLEATED RBC # (test code = 0.00 K/mm3 0.0-0.1 N NRBC#) MANUAL DIFF REQUIRED (test code YES = MDIFF) STAIN ACCEPTABILITY (test code = STN ACCEPTABLE) TOTAL CELLS COUNTED (test code #CELLS = TCC) SEGMENTED NEUTROPHILS (test % 39-69 code = SEG) LYMPHOCYTE (test code = LYMPH) % 25-55 MONOCYTE (test code = MON) % 0-10 EOSINOPHIL (test code = EOS) % 0.0-5.0 CABOT RINGS (test code = CAB) MORPHOLOGY COMMENT (test code = MOC) PLATELET ESTIMATE (test code = PLTEST) PLATELET MORPHOLOGY (test code = PLTMORPH) BASIC METABOLIC [id number] 00:20:00 Test Item Value Reference Range Interpretation Comments SODIUM (test code = 143 mmol/L 136-145 RESULT V ERIFIED BY NA) REPEAT ANALYSIS POTASSIUM (test code 4.5 mmol/L 3.5-5.1 N = K) CHLORIDE (test code = 106.0 mmol/L 98-107 N CL) CARBON DIOXIDE (test 25.0 mmol/L 21-32 N code = CO2) ANION GAP (test code 16.5 10-20 N = GAP) GLUCOSE (test code = 171 mg/dL 74-106 H GLU) BLOOD UREA NITROGEN 18 mg/dL 7-18 N (test code = BUN) GLOMERULAR FILTRATION > 60 mL/min >=60 Estima loy GFR by RATE (test code = using Arash fied MDRD GFR) formula.Chronic kidney disease is defined as eith er kidney damageor GFR <60 mL/min/1.73 m2 for >3 months. CREATININE (test code 0.50 mg/dL 0.7-1.3 L = CREAT) BUN/CREATININE RATIO 34.9 10-20 H (test code = BUN/CREA) CALCIUM (test code = 7.8 mg/dL 8.5-10.1 L CA) BASIC METABOLIC [id number] 21:30:00 Test Item Value Reference Range Interpretation Comments SODIUM (test code = 148 mmol/L 136-145 H NA) POTASSIUM (test code 3.9 mmol/L 3.5-5.1 N = K) CHLORIDE (test code = 111.0 mmol/L 98-107 H CL) CARBON DIOXIDE (test 30.0 mmol/L 21-32 N code = CO2) ANION GAP (test code 10.9 10-20 N = GAP) GLUCOSE (test code = 84 mg/dL 74-106 N GLU) BLOOD UREA NITROGEN 19 mg/dL 7-18 H (test code = BUN) GLOMERULAR FILTRATION > 60 mL/min >=60 Estima loy GFR by RATE (test code = using Arash fied MDRD GFR) formula.Chronic kidney disease is defined as eith er kidney damageor GFR <60 mL/min/1.73 m2 for >3 months. CREATININE (test code 0.60 mg/dL 0.7-1.3 L = CREAT) BUN/CREATININE RATIO 34.0 10-20 H (test code = BUN/CREA) CALCIUM (test code = 8.3 mg/dL 8.5-10.1 L CA) SPECIMEN COMMENTS: Q4H while on insulin dripBASIC METABOLIC [id number] 21:26:00 Test Item Value Reference Range Interpretation Comments SODIUM (test code = NA) 148 mmol/L 136-145 H POTASSIUM (test code = K) 3.9 mmol/L 3.5-5.1 N CHLORIDE (test code = CL) 111.0 mmol/L 98-107 H CARBON DIOXIDE (test code = CO2) mmol/L 21-32 ANION GAP (test code = GAP) 10-20 GLUCOSE (test code = GLU) mg/dL 74-106 BLOOD UREA NITROGEN (test code = mg/dL 7-18 BUN) GLOMERULAR FILTRATION RATE (test mL/min >=60 code = GFR) CREATININE (test code = CREAT) mg/dL 0.7-1.3 BUN/CREATININE RATIO (test code 10-20 = BUN/CREA) CALCIUM (test code = CA) 8.3 mg/dL 8.5-10.1 L SPECIMEN COMMENTS: Q4H while on insulin dripBASIC METABOLIC [id number] 18:17:00 Test Item Value Reference Range Interpretation Comments SODIUM (test code = 149 mmol/L 136-145 H NA) POTASSIUM (test code 3.3 mmol/L 3.5-5.1 L = K) CHLORIDE (test code = 108.0 mmol/L 98-107 H CL) CARBON DIOXIDE (test 36.0 mmol/L 21-32 H code = CO2) ANION GAP (test code 8.3 10-20 L = GAP) GLUCOSE (test code = 138 mg/dL 74-106 H GLU) BLOOD UREA NITROGEN 21 mg/dL 7-18 H (test code = BUN) GLOMERULAR FILTRATION > 60 mL/min >=60 Estima loy GFR by RATE (test code = using Arash fied MDRD GFR) formula.Chronic kidney disease is defined as [facility] er kidney damageor GFR <60 mL/min/1.73 m2 for >3 months. 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 [facility] BASIC METABOLIC [id number] 17:02:00 Test Item Value Reference Range Interpretation Comments SODIUM (test code = 147 mmol/L 136-145 H NA) POTASSIUM (test code 3.3 mmol/L 3.5-5.1 L = K) CHLORIDE (test code = 106.0 mmol/L 98-107 N CL) CARBON DIOXIDE (test 31.0 mmol/L 21-32 N code = CO2) ANION GAP (test code 13.3 10-20 N = GAP) GLUCOSE (test code = 228 mg/dL 74-106 H GLU) BLOOD UREA NITROGEN 24 mg/dL 7-18 H (test code = BUN) GLOMERULAR FILTRATION > 60 mL/min >=60 Estima loy GFR by RATE (test code = using Arash fied MDRD GFR) formula.Chronic kidney disease is defined as [facility] er kidney damageor GFR <60 mL/min/1.73 m2 for >3 months. CREATININE (test code 0.90 mg/dL 0.7-1.3 N = CREAT) BUN/CREATININE RATIO 27.2 10-20 H (test code = BUN/CREA) CALCIUM (test code = 9.2 mg/dL 8.5-10.1 N CA) [id number] 17:02:00 Test Item Value Reference Range Interpretation Comments PHOSPHORUS (test code = PHOS) 3.6 mg/dL 2.5-4.9 N [id number] 17:02:00 Test Item Value Reference Range Interpretation Comments MAGNESIUM (test code = MAG) 2.3 mg/dL 1.8-2.4 N THYROID STIMULATING [id number] 17:02:00 Test Item Value Reference Range Interpretation Comments THYROID STIMULATING 0.313 uIU/mL 0.36-3.74 L TSH REFE RENCE HORMONE (test code = RANGES: EUTHYROID: TSH) 0.35 - 4.3 mIU/mL HYPO : > 5.5 mIU/mL HYPER : < 0.35 mIU/mL BASIC METABOLIC [id number] 16:49:00 Test Item Value Reference Range Interpretation Comments SODIUM (test code = NA) 147 mmol/L 136-145 H POTASSIUM (test code = K) 3.3 mmol/L 3.5-5.1 L CHLORIDE (test code = CL) 106.0 mmol/L 98-107 N CARBON DIOXIDE (test code = CO2) mmol/L 21-32 ANION GAP (test code = GAP) 10-20 GLUCOSE (test code = GLU) mg/dL 74-106 BLOOD UREA NITROGEN (test code = mg/dL 7-18 BUN) GLOMERULAR FILTRATION RATE (test mL/min >=60 code = GFR) CREATININE (test code = CREAT) mg/dL 0.7-1.3 BUN/CREATININE RATIO (test code 10-20 = BUN/CREA) CALCIUM (test code = CA) mg/dL 8.5-10.1 [id number] 16:49:00 Test Item Value Reference Range Interpretation Comments PHOSPHORUS (test code = PHOS) mg/dL 2.5-4.9 [id number] 16:49:00 Test Item Value Reference Range Interpretation Comments MAGNESIUM (test code = MAG) mg/dL 1.8-2.4 THYROID STIMULATING [id number] 16:49:00 Test Item Value Reference Range Interpretation Comments THYROID STIMULATING HORMONE (test uIU/mL 0.36-3.74 code = TSH) [id number] 16:32:00 Test Item Value Reference Range Interpretation Comments GLUBED (test code = 224 mg/dL 74-106 H Performe d by certified GLUBED) 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 [facility] [id number] 14:48:00 Test Item Value Reference Range Interpretation Comments GLUBED (test code = 391 mg/dL 74-106 H Performe d by certified GLUBED) 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 Y BLOOD UREA NITROGEN 30 mg/dL 7-18 H (test code = BUN) GLOMERULAR FILTRATION > 60 mL/min >=60 Estima loy GFR by RATE (test code = using Arash fied MDRD GFR) formula.Chronic kidney disease is defined as eith er kidney damageor GFR <60 mL/min/1.73 m2 for >3 months. CREATININE (test code 1.30 mg/dL 0.7-1.3 N = CREAT) BUN/CREATININE RATIO 23.8 10-20 H (test code = BUN/CREA) CALCIUM (test code = 9.9 mg/dL 8.5-10.1 N CA) SPECIMEN COMMENTS: Q4H while on insulin dripBASIC METABOLIC [id number] 13:26:00 Test Item Value Reference Range Interpretation Comments SODIUM (test code = NA) 143 mmol/L 136-145 N POTASSIUM (test code = K) 3.7 mmol/L 3.5-5.1 N CHLORIDE (test code = CL) 100.0 mmol/L 98-107 N CARBON DIOXIDE (test code = CO2) mmol/L 21-32 ANION GAP (test code = GAP) 10-20 GLUCOSE (test code = GLU) mg/dL 74-106 BLOOD UREA NITROGEN (test code = mg/dL 7-18 BUN) GLOMERULAR FILTRATION RATE (test mL/min >=60 code = GFR) CREATININE (test code = CREAT) mg/dL 0.7-1.3 BUN/CREATININE RATIO (test code 10-20 = BUN/CREA) CALCIUM (test code = CA) mg/dL 8.5-10.1 SPECIMEN COMMENTS: Q4H while on insulin dripURINALYSIS [id number] 11:53:00 Test Item Value Reference Range Interpretation Comments UA COLOR (test code = COLORLESS YELLOW A COLU) UA APPEARANCE (test code CLEAR CLEAR = APPU) UA GLUCOSE DIPSTICK (test >1000 (4+) mg/dL NEGATIVE code = DGLUU) UA BILIRUBIN DIPSTICK NEGATIVE mg/dL NEGATIVE (test code = BILU) UA KETONE DIPSTICK (test 40 (2+) mg/dL NEGATIVE A code = KETU) UA SPECIFIC GRAVITY (test 1.027 1.001-1.035 code = SGU) UA BLOOD DIPSTICK (test Negative mg/dL NEGATIVE code = JAMMIE) UA PH DIPSTICK (test code 5.0 5.0-8.0 = ANDRES) UA PROTEIN DIPSTICK (test NEGATIVE mg/dL NEGATIVE code = PROU) UA UROBILINIOGEN DIPSTICK Normal mg/dL NEGATIVE (test code = URO) UA NITRITE DIPSTICK (test NEGATIVE NEGATIVE code = CHINO) UA LEUKOCYTE ESTERASE W NEGATIVE Miya/uL NEGATIVE REFLEX (test code = LEUUR) UA WBC (test code = WBCU) 0-5 per HPF 0-5 UA RBC (test code = RBCU) 0-3 #/HPF 0-5 UA EPITHELIAL CELLS (test Few (2-5/hpf) per FEW code = EPIU) HPF UA BACTERIA (test code = FEW #/HPF NONE BACU) Urine Source? Clean CatchBASIC METABOLIC [id number] 11:34:00 Test Item Value Reference Range Interpretation Comments SODIUM (test code = 139 mmol/L 136-145 N NA) POTASSIUM (test code = 3.8 mmol/L 3.5-5.1 N K) CHLORIDE (test code = 94.0 mmol/L 98-107 L CL) CARBON DIOXIDE (test 16.0 mmol/L 21-32 L code = CO2) ANION GAP (test code = 32.8 10-20 H GAP) GLUCOSE (test code = 851 mg/dL 74-106 HH Results called to GLU) [id number] by JONATHON EATON 06/23/20 1134Critical re sults verified and re ad back by Nurse? Y BLOOD UREA NITROGEN 29 mg/dL 7-18 H RESULT V ERIFIED BY (test code = BUN) REPEAT GINI LYSIS GLOMERULAR FILTRATION > 60 mL/min >=60 Estima loy GFR by RATE (test code = GFR) using Modified MDRD formula.Chronic kidney disease is defined as eith er kidney damageor GFR <60 mL/min/1.73 m2 for >3 months. CREATININE (test code 1.20 mg/dL 0.7-1.3 N = CREAT) BUN/CREATININE RATIO 24.2 10-20 H (test code = BUN/CREA) CALCIUM (test code = 9.5 mg/dL 8.5-10.1 N CA) SPECIMEN COMMENTS: Q4H while on insulin dripSPECIMEN COMMENTS: Q8H while on insulin [id number] 11:34:00 Test Item Value Reference Range Interpretation Comments MAGNESIUM (test code = MAG) 2.3 mg/dL 1.8-2.4 N SPECIMEN COMMENTS: Q4H while on insulin dripSPECIMEN COMMENTS: Q8H while on insulin drip- CT ABD PELVIS W/O [id number] 11:12:00 [facility])Name: ELVIS FOX : 1995 Sex: M Name: ELVIS FOX [facility] : 1995 Age/S: 25 / M [address] [facility] Unit #: [id number] Loc: [place] [address] Phys: Luis F Knight Acct: [id number] Dis Date: Status: ADM IN PHONE #: [phone] Exam Date: 06/23/2020925 FAX #: [phone] Reason: infection EXAMS: CPT CODE: [id number] CT ABD PELVIS W/O CONT 05882 REASON FOR EXAM: infection EXAM ORDER DATE: 06/23/2020 8:38 AM Ordering M.D.: JENNIE Joseph PROCEDURE: Axial CT images were acquired through the abdomen/pelvis at 5 mm intervals. Sagittal and coronal reformatted images were generated. Automated exposure control was utilized for this reduction. Phases of contrast: None COMPARISON: None FINDINGS: The absence of IV contrast limits sensitivity of this exam for the detection of soft tissue pathology Visualized thorax: Grossly normal Hepatobiliary system: Prior cholecystectomy. Hepatic parenchyma is grossly within normal limits Pancreas: Grossly normalSpleen: Grossly normal Adrenal glands: Grossly normal Genitourinary system: Urinary bladder is markedly distended. Kidneys and ureters and reproductive organs are grossly within normal limits Gastrointestinal tract and appendix: Grossly normal Abdominal vascular structures: Grossly normal Peritoneum and retroperitoneum: No free fluid or free air. No omental or mesenteric masses. No abnormal lymph nodes.Musculoskeletal structures and abdominal wall: Normal IMPRESSION: Urinary bladder is markedly distended. Otherwise grossly normal CT PAGE 1 Signed Report (CONTINUED) Name: ELVIS FOX [facility] : 1995 Age/S: 25 / M [facility] Unit #: [id number] Loc: [place] [address] Phys: Luis F Knight Acct: [id number] Dis Date: Status: ADM IN PHONE #: [phone] Exam Date: 06/23/2020925 FAX #: [phone] Reason: infection EXAMS: CPT CODE: [id number] CT ABD PELVIS W/O CONT 12565 <Continued> scan of the abdomen and pelvis. Location: [facility] at 1112 Reported and signed by: Celso Welch MD CC: Priyanka Knight; Mikel Zamorano MD Technologist:Olayinka Barros RT(R),(MR),(CT); CTDI: DLP: Trnscb Date/Time: 06/23/2020 (1112) t.SDR.RR31 Orig Print D/T: S: 06/23/2020 (1115) PAGE2 Signed Report- CT ABD PELVIS W/O [id number] 11:12:00 [facility]Name: ELVIS FOX : 1995 Sex: M Name: ELVIS FOX [facility] : 1995 Age/S: 25 / M [address] [facility] Unit #: [id number] Loc: [place] [address] Phys: Luis F Knight Acct: [id number] Dis Date: 06/26/2020 Status: DIS IN PHONE #: [phone] Exam Date: 06/23/2020925 FAX #: [phone] Reason: infection EXAMS: CPT CODE: [id number] CT ABD PELVIS W/O CONT 95731 REASON FOR EXAM: infection EXAM ORDER DATE: 06/23/2020 8:38 AM Ordering M.DDwayne: JENNIE Joseph PROCEDURE: Axial CT images were acquired through the abdomen/pelvis at 5 mm intervals. Sagittal and coronal reformatted images were generated. Automated exposure control was utilized for this reduction. Phases of contrast: None COMPARISON: None FINDINGS: The absence of IV contrast limits sensitivity of this exam for the detection of soft tissue pathology Visualized thorax: Grossly normal Hepatobiliary system: Prior cholecystectomy. Hepatic parenchyma is grossly within normal limits Pancreas: Grossly normalSpleen: Grossly normal Adrenal glands: Grossly normal Genitourinary system: Urinary bladder is markedly distended. Kidneys and ureters and reproductive organs are grossly within normal limits Gastrointestinal tract and appendix: Grossly normal Abdominal vascular structures: Grossly normal Peritoneum and retroperitoneum: No free fluid or free air. No omental or mesenteric masses. No abnormal lymph nodes.Musculoskeletal structures and abdominal wall: Normal IMPRESSION: Urinary bladder is markedly distended. Otherwise grossly normal CT PAGE 1 Signed Report (CONTINUED) Name: ELVIS FOX [facility] : 1995 Age/S: 25 / M [address] Unit #: [id number] Loc: [place] Cast[place] [address] Phys: Luis F Knight Acct: [id number] Dis Date: 06/26/2020 Status: DIS IN PHONE #: [phone] Exam Date: 06/23/2020925 FAX #: [phone] Reason: infection EXAMS: CPT CODE: [id number] CT ABD PELVIS W/O CONT 43722 <Continued> scan of the abdomen and pelvis. Location: [facility] at 1112 Reported and signed by: Celso Welch MD CC: Priyanka Knight; Mikel Zamorano MD Technologist:Olayinka Barros RT(R),(MR),(CT); CTDI: DLP: Trnscb Date/Time: 06/23/2020 (1112) t.SDR.RR31 Orig Print D/T: S: 06/23/2020 (1115) PAGE2 Signed ReportBASIC METABOLIC [id number] 10:47:00 Test Item Value Reference Range Interpretation Comments SODIUM (test code = NA) 139 mmol/L 136-145 N POTASSIUM (test code = K) 3.8 mmol/L 3.5-5.1 N CHLORIDE (test code = CL) 94.0 mmol/L 98-107 L CARBON DIOXIDE (test code = CO2) mmol/L 21-32 ANION GAP (test code = GAP) 10-20 GLUCOSE (test code = GLU) mg/dL 74-106 BLOOD UREA NITROGEN (test code = mg/dL 7-18 BUN) GLOMERULAR FILTRATION RATE (test mL/min >=60 code = GFR) CREATININE (test code = CREAT) mg/dL 0.7-1.3 BUN/CREATININE RATIO (test code = 10-20 BUN/CREA) CALCIUM (test code = CA) mg/dL 8.5-10.1 SPECIMEN COMMENTS: Q4H while on insulin dripSPECIMEN COMMENTS: Q8H while on insulin [id number] 10:47:00 Test Item Value Reference Range Interpretation Comments MAGNESIUM (test code = MAG) mg/dL 1.8-2.4 SPECIMEN COMMENTS: Q4H while on insulin dripSPECIMEN COMMENTS: Q8H while on insulin [id number] 09:13:00 Test Item Value Reference Range Interpretation Comments GLUBED (test code = > 500 mg/dL 74-106 HH Performe d by certified GLUBED) 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 [facility] VENOUS BLOOD [id number] 07:49:00 Test Item Value Reference Range Interpretation Comments VENOUS BLOOD GAS PH (test 7.20 7.30-7.40 L Re sults called code = PHV) to and read arm[place] k [place] 07:4 - 06/23/2020; b y JLP VENOUS BLOOD GAS PCO2 45.8 mm Hg 39.0-51.0 N (test code = PCO2V) VENOUS BLOOD GAS PO2 < 43.5 mm Hg 30.0-50.0 N (test code = PO2V) VBG HCO3 (test code = 17.6 mmol/L 17.0-30.0 N HCO3V) VBG BASE EXCESS (test -10.0 mmol/L -5.0-5.0 LL Result s called code = SUNITA) to and read arminda k by [place] 07:4 - 06/23/2020; b y JLP VENOUS BLOOD GAS O2 SAT. 24 % 94-98 LL (test code = O2SATV) VENOUS BLOOD GAS FIO2 21.0 (test code = FIO2V) POC HGB (test code = 10.9 gram/dL 13.0-17.5 L PHGBVBG) VENOUS BLOOD GAS SITE IVC (test code = SITEV) HEMATOCRIT (test code = 32 % 42-52 L HCT/VBG) HGB O2 SAT (test code = 23.6 % 94.00-98.00 LL HBOSAT) CARBOXYHEMOGLOBIN (test 0.2 %totalHg 0.5-1.5 LL Resu lts called code = HOHGBT) to and read b ack by [place] 07:4 - 06/23/2020; b y JLP METHEMOGLOBIN (test code 1.8 % 0.0-1.50 HH Res ults called = METHGB) to and read arminda k [facility] [place] 07:4 06/23/2020; b y JLP BASIC METABOLIC [id number] 06:39:00 Test Item Value Reference Range Interpretation Comments SODIUM (test code = 139 mmol/L 136-145 N NA) POTASSIUM (test code = 4.3 mmol/L 3.5-5.1 N K) CHLORIDE (test code = 99.0 mmol/L 98-107 N CL) CARBON DIOXIDE (test 20.0 mmol/L 21-32 L code = CO2) ANION GAP (test code = 24.3 10-20 H GAP) GLUCOSE (test code = 604 mg/dL 74-106 HH Results called to GLU) [id number] by [facility] [id number] 06/23/20 0632Critical re sults verified and re ad back by Nurse? Y BLOOD UREA NITROGEN 21 mg/dL 7-18 H (test code = BUN) GLOMERULAR FILTRATION > 60 mL/min >=60 Estima loy GFR by RATE (test code = GFR) using Modified MDRD formula.Chronic kidney disease is defined as eith er kidney damageor GFR <60 mL/min/1.73 m2 for >3 months. CREATININE (test code 1.00 mg/dL 0.7-1.3 N = CREAT) BUN/CREATININE RATIO 20.4 10-20 H (test code = BUN/CREA) CALCIUM (test code = 9.4 mg/dL 8.5-10.1 N CA) HEPATIC FUNCTION [id number] 06:39:00 Test Item Value Reference Range Interpretation Comments TOTAL PROTEIN (test 7.3 gram/dL 6.4-8.2 N code = PROT) ALBUMIN (test code = 4.1 g/dL 3.4-5.0 N ALB) GLOBULIN (test code = 3.2 gram/dL 2.7-4.2 N GLOB) ALBUMIN/GLOBULIN RATIO 1.3 0.75-1.50 N (test code = A/G) BILIRUBIN TOTAL (test 1.00 mg/dL 0.0-1.0 N code = BILT) BILIRUBIN DIRECT (test 0.35 mg/dL 0.0-0.20 H code = BILD) SGOT/AST (test code = 23 IUnit/L 15-37 N AST) SGPT/ALT (test code = 29 IUnit/L 12-78 N ALT) ALKALINE PHOSPHATASE 125 IUnit/L 45-117 H Note change in TOTAL (test code = reference range due ALKP) to change in reagent. [id number] 06:39:00 Test Item Value Reference Range Interpretation Comments LIPASE (test code = LIP) 52 U/L 73.0-393.0 L CBC W/O [id number] 06:20:00 Test Item Value Reference Range Interpretation Comments WHITE BLOOD CELL (test code = 13.2 K/mm3 4.5-12.5 H WBC) RED BLOOD CELL (test code = 3.44 mill/mm3 4.0-5.8 L RBC) HEMOGLOBIN (test code = HGB) 10.7 gram/dL 13.0-17.5 L HEMATOCRIT (test code = HCT) 33.8 % 42.0-52.0 L MEAN CELL VOLUME (test code = 98.3 fL 80-98 H MCV) MEAN CELL HGB (test code = MCH) 31.1 picogram 27.0-33.0 N MEAN CELL HGB CONCETRATION 31.7 gram/dL 33.0-36.0 L (test code = MCHC) RED CELL DISTRIBUTION WIDTH 13.3 % 11.6-16.2 N (test code = RDW) PLATELET COUNT (test code = 447 K/mm3 150-450 N PLT) MEAN PLATELET VOLUME (test code 10.1 fL 6.7-11.0 N = MPV) BASIC METABOLIC [id number] 06:19:00 Test Item Value Reference Range Interpretation Comments SODIUM (test code = NA) 139 mmol/L 136-145 N POTASSIUM (test code = K) 4.3 mmol/L 3.5-5.1 N CHLORIDE (test code = CL) 99.0 mmol/L 98-107 N CARBON DIOXIDE (test code = CO2) mmol/L 21-32 ANION GAP (test code = GAP) 10-20 GLUCOSE (test code = GLU) mg/dL 74-106 BLOOD UREA NITROGEN (test code = mg/dL 7-18 BUN) GLOMERULAR FILTRATION RATE (test mL/min >=60 code = GFR) CREATININE (test code = CREAT) mg/dL 0.7-1.3 BUN/CREATININE RATIO (test code = 10-20 BUN/CREA) CALCIUM (test code = CA) mg/dL 8.5-10.1 HEPATIC FUNCTION [id number] 06:19:00 Test Item Value Reference Range Interpretation Comments TOTAL PROTEIN (test code = PROT) gram/dL 6.4-8.2 ALBUMIN (test code = ALB) g/dL 3.4-5.0 GLOBULIN (test code = GLOB) gram/dL 2.7-4.2 ALBUMIN/GLOBULIN RATIO (test code = 0.75-1.50 A/G) BILIRUBIN TOTAL (test code = BILT) mg/dL 0.0-1.0 BILIRUBIN DIRECT (test code = BILD) mg/dL 0.0-0.20 SGOT/AST (test code = AST) IUnit/L 15-37 SGPT/ALT (test code = ALT) IUnit/L 12-78 ALKALINE PHOSPHATASE TOTAL (test IUnit/L 45-117 code = ALKP) [id number] 06:19:00 Test Item Value Reference Range Interpretation Comments LIPASE (test code = LIP) U/L 73.0-393.0 COMPREHENSIVE DRUG [id number] 10:23:00 Test Item Value Reference Range Interpretation Comments DRUG TOXICOLOGY (test code = SENT TO REF LAB DRUG) [id number] 10:23:00 Test Item Value Reference Range Interpretation Comments ALCOHOL (test code = ALC) <3 mg/dL 0-3 N [id number] 07:45:00 Test Item Value Reference Range Interpretation Comments GLUBED (test code = 127 mg/dL 70-105 H Performe d by certified GLUBED) 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 [facility] [id number] 07:45:00 Test Item Value Reference Range Interpretation Comments GLUBED (test code = <40 mg/dL 70-105 L Performe d by certified GLUBED) 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 [facility] DRUGS OF ABUSE [id number] 23:36:00 Test Item Value Reference Range Interpretation Comments UR COCAINE (test code NEGATIVE ng/ml NEGATIVE = COCAU) UR CANNABINOIDS (test POSITIVE ng/ml NEGATIVE A VALU E EXCEEDS code = CANU) CRITICAL LEVEL. CRITICAL VALUE CALLEDTO AND CRITICAL VALUE READ BACK BY VAMSI WEBER RN [id number] 05/19/20. Levar Francois. POSITIVE URINE DRUG SCREEN JACINTO T RESULTS ARE UNCONFIRMED.REF ERR ED CONFIRMATORY TESTING AVAILAB LE UPON PHYSICIANREQUES T. UR AMPHETAMINE (test NEGATIVE ng/dl NEGATIVE code = AMPHU) UR BARBITURATE (test NEGATIVE ng/ml NEGATIVE code = BARBU) UR BENZODIAZEPINE NEGATIVE ng/ml NEGATIVE (test code = BENZU) UR OPIATES QUAL (test POSITIVE ng/ml NEGATIVE A VALU E EXCEEDS code = OPIAQLU) CRITICAL LEV EL. CRITICAL VALUE CALLEDTO AND CRITICAL VALUE READ BACK BY HARRY Sullivan 1124 05/19/20. Levar Francois. POSITIVE URINE DRUG SCREEN JACINTO T RESULTS ARE UNCONFIRMED.REF ERR ED CONFIRMATORY TESTING AVAILAB LE UPON PHYSICIANREQUES T. UR PHENCYCLIDINE NEGATIVE ng/ml NEGATIVE THE URINE SPECIMEN (PCP) (test code = WAS TESTE D AT THE [facility]) LISTED CUTOFFS DRUG CLASS INITIAL TEST LEVEL AMPHETAMI NATALY 1000 NG/MLBARBITURAT ES 200 NG/MLBENZODIAZE PIN ES 200 NG/MLCOCAINE METABOLITE 300 NG/MLMARIJUANA METABOLITE 5 0 NG/MLOPIATES 300 NG/MLPHENCYCLID INE 25 NG /ML NOTIF[place] YOHAN [place] RN [place] 204005/19/20, THAT ANOTHERURINE IS NEEDED FOR UDS BECAUSE CANNOT BE ADDED ON. H.LAB.[id number] 21:44:00 Test Item Value Reference Range Interpretation Comments GLUBED (test code = 146 mg/dL 70-105 H Performe d by certified GLUBED) 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 [facility] [id number] 16:00:00 Test Item Value Reference Range Interpretation Comments GLUBED (test code = 203 mg/dL 70-105 H Performe d by certified GLUBED) 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 [facility] Coronavirus 2019 nCoV [id number] 14:57:00 Test Item Value Reference Interpretation Comments Range Coronavirus 2019 Presumed Negative ID nCoV Bedside Negative NOW COVID-19 (test code = [id number]) -Negative results should be treated as presumptive and, ifinconsistent with clinical signs and symptoms or nec essaryfor patient managem ent, should be teste d with an alternativemole cular assay. Negative results do not preclude JSSG-JfU-3xplfy tion and should not be u sed as the sole basis forp atient management deci sions. Negative result s should beconsidered in the context of a pa tient's recent exposure s,history, presence of cli nical signs and sympt oms consistentwith COVID-19.The ID NOW COVID-19 test i s only for use under the F ood andDrug Adminis tration's Emergency Use Authorization. [id number] 14:13:00 Test Item Value Reference Range Interpretation Comments [id number] Negative Negative Note: this e ntry is for (test code = TRACKING purpos es only [id number]) and the jacinto twas done outside [facility], the perfroming entitiy isfound in spec imen comments. The test was performed at: [facility]: 05/19/20Patient's account number from transferring facility: 0000The patient's current lab results are: [id number] 13:04:00 Test Item Value Reference Range Interpretation Comments GLYCOSYLATED 10.3 % <5.7 H PACE GGESTED HEMOGLOBIN (HA1C) DIAGNOSIS (test code = GLYHGB) INTERPR ETATION -------- Normal: < 5.7% Prediabetes: 5 .7 - 6.4% Diabetic: >/ = 6.5%* DUE TO METHOD R EVISION, REFERENCE RANGE HAS BEEN UPDATED * ESTIMATED AVERAGE 249 MG/DL <126 GLUCOSE (test code = EAG) COMPREHENSIVE DRUG [id number] 13:03:00 Test Item Value Reference Range Interpretation Comments DRUG TOXICOLOGY (test code = DRUG) [id number] 13:03:00 Test Item Value Reference Range Interpretation Comments ALCOHOL (test code = ALC) <3 mg/dL 0-3 N [id number] 12:42:00 Test Item Value Reference Range Interpretation Comments GLUBED (test code = 92 mg/dL 70-105 N Performe d by certified GLUBED) 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 [facility] [id number] 09:55:00 Test Item Value Reference Range Interpretation Comments GLUCOSE (test code = GLU) 42 mg/dL 70-100 L LO GLUCOMETERURINALYSIS W REFLEX [id number] 09:12:00 Test Item Value Reference Range Interpretation Comments UA COLOR (test code = COLU) YELLOW YELLOW UA APPEARANCE (test code = CLEAR CLEAR APPU) UA GLUCOSE DIPSTICK (test code >1000 mg/dl NORMAL = DGLUU) UA BILIRUBIN DIPSTICK (test NEGATIVE mg/dl NEGATIVE code = BILU) UA KETONE DIPSTICK (test code 40 mg/dl NEGATIVE A = KETU) UA SPECIFIC GRAVITY (test code 1.024 1.001-1.035 N = SGU) UA BLOOD DIPSTICK (test code = NEGATIVE /UL NEGATIVE JAMMIE) UA PH DIPSTICK (test code = 6.0 4.6-8.0 ANDRES) UA PROTEIN DIPSTICK (test code 10 mg/dl NEGATIVE A = PROU) UA UROBILINIOGEN DIPSTICK NORMAL mg/dl NORMAL (test code = URO) UA NITRITE DIPSTICK (test code NEGATIVE NEGATIVE = CHINO) UA LEUKOCYTE ESTERASE DIPSTICK NEGATIVE /UL NEGATIVE (test code = LEUU) UA COMMENT (test code = COMU) CLN CATCH UA WBC (test code = WBCU) 0-2 #/hpf 0-5 UA RBC (test code = RBCU) 0-2 #/hpf 0-5 UA EPITHELIAL CELLS (test code FEW /hpf NEG,FEW = EPIU) UA MUCUS (test code = MUCU) FEW /hpf NEG,FEW BASIC METABOLIC [id number] 08:09:00 Test Item Value Reference Range Interpretation Comments SODIUM (test code = 137 mmol/L 136-145 N NA) POTASSIUM (test code = 4.3 mmol/L 3.5-5.1 N K) CHLORIDE (test code = 107 mmol/L 98-107 N CL) CARBON DIOXIDE (test 27 mmol/L 21-32 N code = CO2) GLUCOSE (test code = 183 mg/dL 70-100 H GLU) BLOOD UREA NITROGEN 18 mg/dL 7-18 N (test code = BUN) GLOMERULAR FILTRATION > 60.00 >=60 Report ing units: RATE (test code = GFR) mL/mi n/1.73m\\S\\2 (Modified MDRD formula)REFEREN CE RANGE: > or = 6 0 ml/min/1.73M2IF PATIENT IS -ANY N, MULTIPLY REPORT ED RESULT BY1.21. CREATININE (test code 0.70 mg/dL 0.67-1.17 N = CREAT) CALCIUM (test code = 7.7 mg/dL 8.5-10.1 L CA) [id number] 08:09:00 Test Item Value Reference Range Interpretation Comments LIPASE (test code = LIP) 49 U/L 73-393 L [id number] 08:09:00 Test Item Value Reference Range Interpretation Comments TROPONIN-I (test <0.015 ng/ml 0.00-0.045 N GUIDELINES: 0.08 - 0.09 code = TROPI) Indeterminate0 .10 Risk Stratifica tion Limit: Suggest sequential te sting0.60 - 1.50 AMI cut off: Myocardial Inju ry by WHO criteria BETA [id number] 08:09:00 Test Item Value Reference Range Interpretation Comments BETA HYDROBUTYRATE (test code = 0.37 mmol/L 0.00-0.28 H BETHYD) BASIC METABOLIC [id number] 08:01:00 Test Item Value Reference Range Interpretation Comments SODIUM (test code = 137 mmol/L 136-145 N NA) POTASSIUM (test code = 4.3 mmol/L 3.5-5.1 N K) CHLORIDE (test code = 107 mmol/L 98-107 N CL) CARBON DIOXIDE (test 27 mmol/L 21-32 N code = CO2) GLUCOSE (test code = 183 mg/dL 70-100 H GLU) BLOOD UREA NITROGEN 18 mg/dL 7-18 N (test code = BUN) GLOMERULAR FILTRATION > 60.00 >=60 Report ing units: RATE (test code = GFR) mL/mi n/1.73m\\S\\2 (Modified MDRD formula)REFEREN CE RANGE: > or = 6 0 ml/min/1.73M2IF PATIENT IS -ANY N, MULTIPLY REPORT ED RESULT BY1.21. CREATININE (test code 0.70 mg/dL 0.67-1.17 N = CREAT) CALCIUM (test code = 7.7 mg/dL 8.5-10.1 L CA) [id number] 08:01:00 Test Item Value Reference Range Interpretation Comments LIPASE (test code = LIP) 49 U/L 73-393 L [id number] 08:01:00 Test Item Value Reference Range Interpretation Comments TROPONIN-I (test <0.015 ng/ml 0.00-0.045 N GUIDELINES: 0.08 - 0.09 code = TROPI) Indeterminate0 .10 Risk Stratifica tion Limit: Suggest sequential te sting0.60 - 1.50 AMI cut off: Myocardial Inju ry by WHO criteria BETA [id number] 08:01:00 Test Item Value Reference Range Interpretation Comments BETA HYDROBUTYRATE (test code = mmol/L 0.00-0.28 BETHYD) BASIC METABOLIC [id number] 07:48:00 Test Item Value Reference Range Interpretation Comments SODIUM (test code = NA) 137 mmol/L 136-145 N POTASSIUM (test code = K) 4.3 mmol/L 3.5-5.1 N CHLORIDE (test code = CL) 107 mmol/L 98-107 N CARBON DIOXIDE (test code = CO2) mmol/L 21-32 GLUCOSE (test code = GLU) mg/dL 70-100 BLOOD UREA NITROGEN (test code = mg/dL 7-18 BUN) GLOMERULAR FILTRATION RATE (test >=60 code = GFR) CREATININE (test code = CREAT) mg/dL 0.67-1.17 CALCIUM (test code = CA) 7.7 mg/dL 8.5-10.1 L [id number] 07:48:00 Test Item Value Reference Range Interpretation Comments LIPASE (test code = LIP) U/L 73-393 [id number] 07:48:00 Test Item Value Reference Range Interpretation Comments TROPONIN-I (test code = TROPI) ng/ml 0.00-0.045 BETA [id number] 07:48:00 Test Item Value Reference Range Interpretation Comments BETA HYDROBUTYRATE (test code = mmol/L 0.00-0.28 BETHYD) BASIC METABOLIC [id number] 07:47:00 Test Item Value Reference Range Interpretation Comments SODIUM (test code = NA) 137 mmol/L 136-145 N POTASSIUM (test code = K) 4.3 mmol/L 3.5-5.1 N CHLORIDE (test code = CL) 107 mmol/L 98-107 N CARBON DIOXIDE (test code = CO2) mmol/L 21-32 GLUCOSE (test code = GLU) mg/dL 70-100 BLOOD UREA NITROGEN (test code = mg/dL 7-18 BUN) GLOMERULAR FILTRATION RATE (test >=60 code = GFR) CREATININE (test code = CREAT) mg/dL 0.67-1.17 CALCIUM (test code = CA) mg/dL 8.5-10.1 [id number] 07:47:00 Test Item Value Reference Range Interpretation Comments LIPASE (test code = LIP) U/L 73-393 [id number] 07:47:00 Test Item Value Reference Range Interpretation Comments TROPONIN-I (test code = TROPI) ng/ml 0.00-0.045 BETA [id number] 07:47:00 Test Item Value Reference Range Interpretation Comments BETA HYDROBUTYRATE (test code = mmol/L 0.00-0.28 BETHYD) LACTIC [id number] 07:39:00 Test Item Value Reference Range Interpretation Comments LACTIC ACID (test code = LACT) 1.1 mmol/l 0.4-2.0 N CBC W/AUTO [id number] 07:38:00 Test Item Value Reference Range Interpretation Comments WHITE BLOOD CELL (test code = 10.4 X10(3) 4.5-11.0 N WBC) RED BLOOD CELL (test code = 3.13 X10(6) 4.3-5.9 L RBC) HEMOGLOBIN (test code = HGB) 9.9 g/dL 13.5-18.0 L HEMATOCRIT (test code = HCT) 29.5 % 42.0-52.0 L MEAN CELL VOLUME (test code = 94.2 fl 78-100 N MCV) MEAN CELL HGB (test code = MCH) 31.6 pg 26.0-34.0 N MEAN CELL HGB CONCETRATION 33.6 g/dl 30.0-37.0 N (test code = MCHC) RED CELL DISTRIBUTION WIDTH 13.2 % 11.5-14.5 N (test code = RDW) PLATELET COUNT (test code = 275 X10(3) 150-350 N PLT) MEAN PLATELET VOLUME (test code 9.7 fl 8.7-11.4 N = MPV) NEUTROPHIL % (test code = NT%) 69.3 % 36.0-66.0 H IMMATURE GRANULOCYTE % (test 0.3 % 0.0-2.0 N code = IG%) LYMPHOCYTE % (test code = LY%) 22.0 % 16.0-50.0 N MONOCYTE % (test code = MO%) 7.5 % 0.0-13.0 N EOSINOPHIL % (test code = EO%) 0.5 % 0.0-4.5 N BASOPHIL % (test code = BA%) 0.4 % 0.0-1.5 N NUCLEATED RBC % (test code = 0.0 % 0-0.2 N NRBC%) NEUTROPHIL # (test code = NT#) 7.20 X10(3) 1.70-7.70 N IMMATURE GRANULOCYTE # (test 0.03 X10(3)uL 0.00-0.03 N code = IG#) LYMPHOCYTE # (test code = LY#) 2.29 X10(3) 0.70-4.00 N MONOCYTE # (test code = MO#) 0.78 X10(3) 0.00-0.89 N EOSINOPHIL # (test code = EO#) 0.05 X10(3) 0.00-0.60 N BASOPHIL # (test code = BA#) 0.04 X10(3) 0.00-0.20 N NUCLEATED RBC # (test code = 0.00 K/mm3 0.0-0.1 N NRBC#) [id number] 06:54:00 Test Item Value Reference Range Interpretation Comments GLUBED (test code = 183 mg/dL 70-105 H Performe d by certified GLUBED) 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 [facility] [id number] 18:21:00 Test Item Value Reference Range Interpretation Comments GLUBED (test code = 239 mg/dL 74-106 H Performe d by certified GLUBED) 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 [facility] [id number] 15:51:00 Test Item Value Reference Range Interpretation Comments GLUBED (test code = 277 mg/dL 74-106 H Performe d by certified GLUBED) 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 [facility] BASIC METABOLIC [id number] 12:49:00 Test Item Value Reference Range Interpretation Comments SODIUM (test code = 135 mmol/L 136-145 L NA) POTASSIUM (test code = 3.3 mmol/L 3.5-5.1 L K) CHLORIDE (test code = 99.0 mmol/L 98-107 N CL) CARBON DIOXIDE (test 25.0 mmol/L 21-32 N code = CO2) ANION GAP (test code = 14.3 10-20 N GAP) GLUCOSE (test code = 325 mg/dL 74-106 H GLU) BLOOD UREA NITROGEN 15 mg/dL 7-18 N (test code = BUN) GLOMERULAR FILTRATION > 60 mL/min >=60 Estima loy GFR by RATE (test code = GFR) using Modified MDRD formula.Chronic kidney disease is defined as [facility] kidney damageor GFR <60 mL/min/1.73 m2 for >3 months. CREATININE (test code 1.10 mg/dL 0.7-1.3 N = CREAT) BUN/CREATININE RATIO 13.6 10-20 N (test code = BUN/CREA) CALCIUM (test code = 8.8 mg/dL 8.5-10.1 N CA) HEPATIC FUNCTION [id number] 12:49:00 Test Item Value Reference Range Interpretation Comments TOTAL PROTEIN (test 7.6 gram/dL 6.4-8.2 N code = PROT) ALBUMIN (test code = 3.8 g/dL 3.4-5.0 N ALB) GLOBULIN (test code = 3.8 gram/dL 2.7-4.2 N GLOB) ALBUMIN/GLOBULIN RATIO 1.0 0.75-1.50 N (test code = A/G) BILIRUBIN TOTAL (test 0.60 mg/dL 0.0-1.0 N code = BILT) BILIRUBIN DIRECT (test 0.18 mg/dL 0.0-0.20 N code = BILD) SGOT/AST (test code = 20 IUnit/L 15-37 N AST) SGPT/ALT (test code = 81 IUnit/L 12-78 H ALT) ALKALINE PHOSPHATASE 178 IUnit/L 45-117 H Note change in TOTAL (test code = reference range due ALKP) to change in reagent. [id number] 12:49:00 Test Item Value Reference Range Interpretation Comments LIPASE (test code = LIP) 47 U/L 73.0-393.0 L BETA [id number] 12:49:00 Test Item Value Reference Range Interpretation Comments BETA HYDROBUTYRATE (test code = 1.28 mmol/L 0.02-0.27 H BETHYD) BASIC METABOLIC [id number] 12:34:00 Test Item Value Reference Range Interpretation Comments SODIUM (test code = 135 mmol/L 136-145 L NA) POTASSIUM (test code = 3.3 mmol/L 3.5-5.1 L K) CHLORIDE (test code = 99.0 mmol/L 98-107 N CL) CARBON DIOXIDE (test 25.0 mmol/L 21-32 N code = CO2) ANION GAP (test code = 14.3 10-20 N GAP) GLUCOSE (test code = 325 mg/dL 74-106 H GLU) BLOOD UREA NITROGEN 15 mg/dL 7-18 N (test code = BUN) GLOMERULAR FILTRATION > 60 mL/min >=60 Estima loy GFR by RATE (test code = GFR) using Modified MDRD formula.Chronic kidney disease is defined as [facility] kidney damageor GFR <60 mL/min/1.73 m2 for >3 months. CREATININE (test code 1.10 mg/dL 0.7-1.3 N = CREAT) BUN/CREATININE RATIO 13.6 10-20 N (test code = BUN/CREA) CALCIUM (test code = 8.8 mg/dL 8.5-10.1 N CA) HEPATIC FUNCTION [id number] 12:34:00 Test Item Value Reference Range Interpretation Comments TOTAL PROTEIN (test 7.6 gram/dL 6.4-8.2 N code = PROT) ALBUMIN (test code = 3.8 g/dL 3.4-5.0 N ALB) GLOBULIN (test code = 3.8 gram/dL 2.7-4.2 N GLOB) ALBUMIN/GLOBULIN RATIO 1.0 0.75-1.50 N (test code = A/G) BILIRUBIN TOTAL (test 0.60 mg/dL 0.0-1.0 N code = BILT) BILIRUBIN DIRECT (test 0.18 mg/dL 0.0-0.20 N code = BILD) SGOT/AST (test code = 20 IUnit/L 15-37 N AST) SGPT/ALT (test code = 81 IUnit/L 12-78 H ALT) ALKALINE PHOSPHATASE 178 IUnit/L 45-117 H Note change in TOTAL (test code = reference range due ALKP) to change in reagent. [id number] 12:34:00 Test Item Value Reference Range Interpretation Comments LIPASE (test code = LIP) 47 U/L 73.0-393.0 L BETA [id number] 12:34:00 Test Item Value Reference Range Interpretation Comments BETA HYDROBUTYRATE (test code = mmol/L 0.02-0.27 BETHYD) BASIC METABOLIC [id number] 12:23:00 Test Item Value Reference Range Interpretation Comments SODIUM (test code = NA) 135 mmol/L 136-145 L POTASSIUM (test code = K) 3.3 mmol/L 3.5-5.1 L CHLORIDE (test code = CL) 99.0 mmol/L 98-107 N CARBON DIOXIDE (test code = CO2) mmol/L 21-32 ANION GAP (test code = GAP) 10-20 GLUCOSE (test code = GLU) mg/dL 74-106 BLOOD UREA NITROGEN (test code = mg/dL 7-18 BUN) GLOMERULAR FILTRATION RATE (test mL/min >=60 code = GFR) CREATININE (test code = CREAT) mg/dL 0.7-1.3 BUN/CREATININE RATIO (test code = 10-20 BUN/CREA) CALCIUM (test code = CA) mg/dL 8.5-10.1 HEPATIC FUNCTION [id number] 12:23:00 Test Item Value Reference Range Interpretation Comments TOTAL PROTEIN (test code = PROT) gram/dL 6.4-8.2 ALBUMIN (test code = ALB) g/dL 3.4-5.0 GLOBULIN (test code = GLOB) gram/dL 2.7-4.2 ALBUMIN/GLOBULIN RATIO (test code = 0.75-1.50 A/G) BILIRUBIN TOTAL (test code = BILT) mg/dL 0.0-1.0 BILIRUBIN DIRECT (test code = BILD) mg/dL 0.0-0.20 SGOT/AST (test code = AST) IUnit/L 15-37 SGPT/ALT (test code = ALT) IUnit/L 12-78 ALKALINE PHOSPHATASE TOTAL (test IUnit/L 45-117 code = ALKP) [id number] 12:23:00 Test Item Value Reference Range Interpretation Comments LIPASE (test code = LIP) U/L 73.0-393.0 BETA [id number] 12:23:00 Test Item Value Reference Range Interpretation Comments BETA HYDROBUTYRATE (test code = mmol/L 0.02-0.27 BETHYD) URINALYSIS [id number] 12:18:00 Test Item Value Reference Range Interpretation Comments UA COLOR (test code = COLU) COLORLESS YELLOW A UA APPEARANCE (test code = CLEAR CLEAR APPU) UA GLUCOSE DIPSTICK (test >1000 (4+) mg/dL NEGATIVE code = DGLUU) UA BILIRUBIN DIPSTICK (test NEGATIVE mg/dL NEGATIVE code = BILU) UA KETONE DIPSTICK (test 40 (2+) mg/dL NEGATIVE A code = KETU) UA SPECIFIC GRAVITY (test 1.037 1.001-1.035 code = SGU) UA BLOOD DIPSTICK (test code Negative mg/dL NEGATIVE = JAMMIE) UA PH DIPSTICK (test code = 5.5 5.0-8.0 ANDRES) UA PROTEIN DIPSTICK (test NEGATIVE mg/dL NEGATIVE code = PROU) UA UROBILINIOGEN DIPSTICK Normal mg/dL NEGATIVE (test code = URO) UA NITRITE DIPSTICK (test NEGATIVE NEGATIVE code = CHINO) UA LEUKOCYTE ESTERASE W NEGATIVE Miya/uL NEGATIVE REFLEX (test code = LEUUR) UA WBC (test code = WBCU) 0-5 per HPF 0-5 UA RBC (test code = RBCU) 0-2 #/HPF 0-5 UA EPITHELIAL CELLS (test FEW per HPF FEW code = EPIU) UA BACTERIA (test code = FEW #/HPF NONE BACU) Urine Source? Clean CatchCBC W/O [id number] 12:10:00 Test Item Value Reference Range Interpretation Comments WHITE BLOOD CELL (test code = 11.2 K/mm3 4.5-12.5 N WBC) RED BLOOD CELL (test code = 4.34 mill/mm3 4.0-5.8 N RBC) HEMOGLOBIN (test code = HGB) 13.3 gram/dL 13.0-17.5 N HEMATOCRIT (test code = HCT) 40.2 % 42.0-52.0 L MEAN CELL VOLUME (test code = 92.6 fL 80-98 N MCV) MEAN CELL HGB (test code = MCH) 30.6 picogram 27.0-33.0 N MEAN CELL HGB CONCETRATION 33.1 gram/dL 33.0-36.0 N (test code = MCHC) RED CELL DISTRIBUTION WIDTH 12.2 % 11.6-16.2 N (test code = RDW) PLATELET COUNT (test code = 335 K/mm3 150-450 N PLT) MEAN PLATELET VOLUME (test code 9.6 fL 6.7-11.0 N = MPV) CBC W/O [id number] 12:08:00 Test Item Value Reference Range Interpretation Comments WHITE BLOOD CELL (test code = K/mm3 4.5-12.5 WBC) RED BLOOD CELL (test code = RBC) mill/mm3 4.0-5.8 HEMOGLOBIN (test code = HGB) 13.3 gram/dL 13.0-17.5 N HEMATOCRIT (test code = HCT) % 42.0-52.0 MEAN CELL VOLUME (test code = fL 80-98 MCV) MEAN CELL HGB (test code = MCH) picogram 27.0-33.0 MEAN CELL HGB CONCETRATION (test gram/dL 33.0-36.0 code = MCHC) RED CELL DISTRIBUTION WIDTH % 11.6-16.2 (test code = RDW) PLATELET COUNT (test code = PLT) K/mm3 150-450 MEAN PLATELET VOLUME (test code fL 6.7-11.0 = MPV) VENOUS BLOOD [id number] 11:56:00 Test Item Value Reference Range Interpretation Comments VENOUS BLOOD GAS PH (test 7.34 7.30-7.40 N code = PHV) VENOUS BLOOD GAS PCO2 50.9 mm Hg 39.0-51.0 N (test code = PCO2V) VENOUS BLOOD GAS PO2 < 40.7 mm Hg 30.0-50.0 N (test code = PO2V) VBG HCO3 (test code = 27.1 mmol/L 17.0-30.0 N HCO3V) VBG BASE EXCESS (test 0.6 mmol/L -5.0-5.0 N code = SUNITA) VENOUS BLOOD GAS O2 SAT. 33 % 94-98 LL (test code = O2SATV) VENOUS BLOOD GAS FIO2 21.0 (test code = FIO2V) PT. 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 Location: H 12 History: chin/neck infection Technique: Enhanced spiral slices were taken from the base of the skull, through the upper thorax. Sagittal and coronal reformations were performed. 100 cc of Isovue-300 were used. One or more of the following dose reduction techniques were used: Automated exposure control, adjustment of the mA and/or kV according to patient size, and/or utilization of iterative reconstruction technique. Findings: Soft tissue swelling is present about the mentum. A subcentimeter cystic fluid collection is seen in the subcutaneous tissues. The parotid space, carotid space, customer business manager space, prevertebral space and the fossa of Rosenmuller are normal. The oral and hypopharynx are unremarkable. The submandibular glands are normal. No sialadenitis or sialolithiasis is seen. Subcentimeter submental and submandibular lymph nodes are present. No lymphadenopathy is identified in either jugular or either posterior chain. The visualized cervical and the thoracic esophagus is unremarkable. The larynx and visualized trachea are normal. The thyroidgland is unremarkable. Impression: 1. Cellulitis with subcentimeter subcutaneous abscess. 2. Otherwise unremarkable exam. at 0046 Reported and signed by: Wong Dupree M.D. PAGE 1 Signed Report (CONTINUED) Name: ELVIS FOX FSED : 1995 Age/S: 24 / M [address] [facility] N Unit #: [id number] Loc: [address] Phys: Maxime Kelly [place], [place] [address] Acct: [id number] Dis Date: Status: REG ER PHONE #: Exam Date: 06/28/2019 0035 FAX #: Reason: chin/neck infection EXAMS: CPT CODE: [id number] CT NECK W/CONTRAST 62980 <Continued> CC: Maxime Kelly Technologist:Martin Vidal CTDI: DLP: Trnscb Date/Time: 06/28/2019 (0046) TavonFC Orig Print D/T: S: 06/28/2019 (0050) PAGE 2 Signed Report- CT NECK W/[id number] 00:46:00 [facility] : 1995 Sex: M Name: PHOEBE FOXAN [facility] : 1995 Age/S: 24 / M [address] [facility] Unit #: [id number] Loc: [address] Phys: Maxime Kelly [place], [place] [address] Acct: [id number] Dis Date: Status: DEP ER PHONE #: Exam Date: 06/28/2019 0035 FAX #: Reason: chin/neck infection EXAMS: CPT CODE: [id number] CT NECK W/CONTRAST 09223 Exam: CT neck with contrast. Location: H 12 History: chin/neck infection Technique: Enhanced spiral slices were taken from the base of the skull, through the upper thorax. Sagittal and coronal reformations were performed. 100 cc of Isovue-300 were used. One or more of the following dose reduction techniques were used: Automated exposure control, adjustment of the mA and/or kV according to patient size, and/or utilizati on of iterative reconstruction technique. Findings: Soft tissue swelling is present about the mentum. A subcentimeter cystic fluid collection is seen in the subcutaneous tissues. The parotid space, carotid space, customer business manager space, prevertebral space and the fossa of Rosenmuller are normal. The oral and hypopharynx are unremarkable. The submandibular glands are normal. No sialadenitis or sialolithiasis is seen. Subcentimeter submental and submandibular lymph nodes are present. No lymphadenopathy is identified in either jugular or either posterior chain. The visualized cervical and the thoracic esophagus is unremarkable. The larynx and visualized trachea are normal. The thyroid gland is unremarkable. Impression: 1. Cellulitis with subcentimeter subcutaneous abscess. 2. Otherwise unremarkable exam. Pattii baljit Signed by Yohana Dupree on 06/28/2019 at 0046 Reported and signed by: Wong Dupree M.D. PAGE 1 Signed Report (CONTINUED) Name: Sarah FOX FSED : 1995 Age/S: 24 / M [address] [facility] N Unit #: [id number] Loc: [address] Phys: Maxime Kelly DO [place], [place] [address] Acct: [id number] Dis Date: Status: DEP ER PHONE #: Exam Date: 06/28/2019 0035 FAX #: Reason: chin/neck infection EXAMS: CPT CODE: [id number] CT NECK W/CONTRAST 58160 <Continued> CC: Maxime Kelly DO Technologist:Martin Vidal CTDI: DLP: Trnscb Date/Time: 06/28/2019 (004) tANTWAN Orig Print D/T: S: 06/28/2019 (0050) PAGE 2 Signed ReportBASIC METABOLIC [id number] 00:02:00 Test Item Value Reference Range Interpretation Comments SODIUM (test code = 136 mmol/L 128-145 N NA) POTASSIUM (test code = 4.1 mmol/L 3.5-5.1 N K) CHLORIDE (test code = 96.0 mmol/L 98-107 L CL) CARBON DIOXIDE (test 31.9 mmol/L 22-29 H code = CO2) ANION GAP (test code = 12 mmol/L 10-20 N GAP) GLUCOSE (test code = 230 mg/dL 70-110 H GLU) BLOOD UREA NITROGEN 16 mg/dL 7-22 N (test code = BUN) GLOMERULAR FILTRATION > 60 mL/min >=60 Estima loy GFR by RATE (test code = GFR) using Modified MDRD formula.Chronic kidney disease is defined as [facility] er kidney damageor GFR <60 mL/min/1.73 m2 for >3 months. CREATININE (test code 0.76 mg/dL 0.55-1.3 N = CREAT) BUN/CREATININE RATIO 21.1 10-20 H (test code = BUN/CREA) CALCIUM (test code = 9.6 mg/dL 8.0-10.5 N CA) CBC W/AUTO [id number] 23:53:00 Test Item Value Reference Range Interpretation Comments WHITE BLOOD CELL (test code = 12.2 K/mm3 4.5-12.5 N WBC) RED BLOOD CELL (test code = 4.15 mill/mm3 4.0-5.8 N RBC) HEMOGLOBIN (test code = HGB) 12.9 gram/dL 13.0-17.5 L HEMATOCRIT (test code = HCT) 38.5 % 42.0-52.0 L MEAN CELL VOLUME (test code = 92.8 fL 80-98 N MCV) MEAN CELL HGB (test code = MCH) 31.1 picogram 27.0-33.0 N MEAN CELL HGB CONCETRATION 33.5 gram/dL 33.0-36.0 N (test code = MCHC) RED CELL DISTRIBUTION WIDTH 11.9 % 11.6-16.2 N (test code = RDW) RED CELL DISTRIBUTION WIDTH SD 41.5 fL 37.0-51.0 N (test code = RDW-SD) PLATELET COUNT (test code = 317 K/mm3 150-450 N PLT) MEAN PLATELET VOLUME (test code 9.3 fL 6.7-11.0 N = MPV) NEUTROPHIL % (test code = NT%) 81.6 % 39.0-69.0 H LYMPHOCYTE % (test code = LY%) 11.3 % 25.0-55.0 L MONOCYTE % (test code = MO%) 6.2 % 0.0-10.0 N EOSINOPHIL % (test code = EO%) 0.5 % 0.0-5.0 N BASOPHIL % (test code = BA%) 0.2 % 0.0-1.0 N NEUTROPHIL # (test code = NT#) 9.98 K/mm3 1.8-7.7 H LYMPHOCYTE # (test code = LY#) 1.38 K/mm3 1.0-5.0 N MONOCYTE # (test code = MO#) 0.76 K/mm3 0-0.8 N EOSINOPHIL # (test code = EO#) 0.06 K/mm3 0.0-0.5 N BASOPHIL # (test code = BA#) 0.02 K/mm3 0.0-0.2 N MANUAL DIFF REQUIRED (test code NO = MDIFF) GASTRIC,[id number] 13:00:00 RUN DATE: 04/26/18 [facility] PAGE 1 RUN TIME: 1300 Specimen Inquiry RUN USER: INTERFACE PATIENT: ELVIS FOX LOC: NilsaKYA U #: [id number] AGE/SX: 23/M ROOM: [facility] RE04/23/[facility]: Mikel Zamorano MD : [birth year] BED: A DIS: STATUS: ADM IN TLOC: SPEC #: [id number] RECD: 04/25/18 STATUS: [facility] [place] #: [id number] HILDA: 04/25/18 [facility] DR: Arnie Cristobal MD ENTERED: 04/25/18 SP TYPE: GASTRIC BX OTHR DR: Matt Ramirez MD, Daniel Haryanto MDORDERED: GROSS COPIES TO: Matt Ramirez MD [address] [place], [place] [id number] Arnie Cristobal MD [address], [address] [place], [place] [address] PROCEDURES: GROSS (04/26/18) TISSUES: 1. ANTRUM - BX 2. ESOPHAGUS, NOS - BX CLINICAL HISTORY COLLECTION DATE: 04/25/2018 ABDOMINAL PAIN, NAUSEA; VOMITING POST-OP DIAGNOSIS: GASTRITIS, ESOPHAGEAL ULCER, HIATAL HERNIA FINAL DIAGNOSIS Gastric antrum, biopsy: MILD REACTIVE GASTROPATHY NEGATIVE FOR INTESTINAL METAPLASIA NEGATIVE FOR HELICOBACTER ORGANISMS NEGATIVE FOR MALIGNANCY Esophagus, biopsy: SQUAMOUS MUCOSA WITHELONGATION OF SQUAMOUS PAPILLAE AND RARE INTRAEPITHELIAL LYMPHOCYTES SEPARATE FRAGMENT OF FIBRINOPURULENT EXUDATE COMPATIBLE WITH ULCERATION NEGATIVE FOR FUNGAL ORGANISMS NO GLANDULAR EPITHELIUM PRESENT NEGATIVE FOR MALIGNANCY CONTINUED ON NEXT PAGE RUN DATE: 04/26/18 [facility] PAGE 2 RUN TIME: 1300 Specimen Inquiry RUN USER: INTERFACE SPEC #: [id number] PATIENT: ELVIS FOX #[id number] (Continued) FINAL DIAGNOSIS (Continued) RRB/ D [phone], [phone] MACROSCOPIC The first specimen is received in formalin, labeled with the patient's name, identified as "antrum", and consists of pink-tapia biopsy tissue measuring 0.25 cm in aggregate, submitted as (1) for H E and Giemsa stains. The second specimen is received in formalin, labeled with the patient's name, identified as "esophagus", and consists of tapia biopsy tissue measuring 0.25 cm, submitted as (2). GROSS PERFORMED AT [facility] [address] [place] [address] (p)[phone] MICROSCOPIC MICROSCOPIC PERFORMED AT [facility] All of the stains, including any controls performed, stain appropriately. [facility] [address] [place] [address] (p)[phone] PERFORMING SITE Diagnosis performed at: [facility] [address] [place] [address] Signed SIGNATURE ON FILE Dandy Valdez 04/26/18 1300 END OF REPORT DRUG [id number] 18:41:00Negative *NA*(05/19/17 12:41 PM)[facility] [id number] 18:41:00See Note (05/19/17 12:41 PM)[facility] [id number] 18:41:00Negative *NA*(05/19/17 12:41 PM)[facility] [id number] 18:41:00Negative *NA*(05/19/17 12:41 PM)[facility] [id number] 18:41:00Negative *NA*(05/19/17 12:41 PM)[facility] [id number] 18:41:00Positive *ABN*(05/19/17 12:41 PM)[facility] [id number] 18:41:00Positive *ABN*(05/19/17 12:41 PM)[facility] [id number] 18:41:00Negative *NA*(05/19/17 12:41 PM)[facility] [id number] 09:31:00<1[facility] [id number] 09:31:00Negative (05/19/17 3:31 AM)[facility] [id number] 09:31:003[facility] [id number] 09:31:00 Negative (05/19/17 3:31 AM)[facility] [id number] 09:31:00 Negative (05/19/17 3:31 AM)[facility] [id number] 09:31:00 Negative *NA*(05/19/17 3:31 AM)[facility] [id number] 09:31:001.044[facility] [id number] 09:31:005.0[facility] COSNT2436-83-26 09:31:00Clear (05/19/17 3:31 AM)[facility] TbdlywjSSICACOAHW7961-68-58 08:05:72544Fdwgdpgl YmalzutFLKPFEZXTL4145-31-14 08:05:007.0[facility] JhfjbldSASDBNPIHO0274-76-55 08:05:0013.4[facility] LMWRHITTZL2327-79-49 08:05:009.8[facility] OhzhrjsKNBDCSVNCA4959-00-59 08:05:00 29.0[facility] VcnekfoGBOIYDAQZW4989-19-94 08:05:0090.4[facility]annCHEM PANEL 2017-05-19 08:05:000.15[facility]ann[facility] KGOZH3539-98-90 08:05:71301Dzvxzkzz HermannCHEM VKEBW3605-78-18 08:05:88853Abbpyiti HermannCHEM OLIHT5494-02-70 08:05:000.6[facility]annCHE[facility] WDAZD7867-17-49 08:05:0063[facility] DFEBI2706-17-19 08:05:0010[facility]annCHE[facility] LRATN4943-48-79 08:05:003.4 [facility] GACMU6963-50-83 08:05:006.5[facility]annCHE[facility] PANEL 2017-05-19 08:05:008.2[facility]annCHE[facility] LLGHK7896-19-42 08:05:05029Rgfyqixu HermannCHEM YXGOJ8153-18-41 08:05:003.7[facility] ZPZHU1209-78-12 08:05:000.48[facility]annCHE[facility] BJCOI0243-15-21 08:05:21970Wrdubysc HermannCHEM PFVBL3034-96-36 08:05:0015[facility] LCSYC0460-56-48 08:05:0024 [facility] MMUWC8189-45-34 08:05:73338Wgobpmbt HermannCHEM PANEL 2017-05-19 08:05:0012.7[facility] CUIAP2971-24-80 08:05:001.1[facility]annCHE[facility] LWUAG0418-21-21 08:05:0031[facility]CHE[facility] IHPDB0309-20-96 08:05:003.1[facility]annCHE[facility] OKEZP4146-93-17 08:05:55642[facility] MYXFUXYVZA9998-32-90 08:05:0079.4[facility] FrvouxuCZIBPIMHWN8776-40-18 08:05:00 13.0[facility] DonctxvZELWHIGBDB8613-82-34 08:05:000.7[facility]annHEMATOLOGY 2017-05-19 08:05:002.3[facility] TbwpshgSGOTSDFZBT2728-16-84 08:05:000.4[facility] WcttdmdQOWPIGTBQC5982-25-12 08:05:0012.1[facility] CgelehjYXWBCZZFOF5402-97-50 08:05:002.0[facility] BxaodzuKYLAFLGBOE4328-94-85 08:05:004.9[facility] DCOLADRUAD8563-04-63 08:05:000.3[facility] RqtlrxgUPWQXOPOYF1245-02-35 08:05:000.1 [facility] TbwokimYKGADRKBID1809-31-00 08:05:003.20[facility]annHEMATOLOGY 2017-05-19 08:05:0015.2[facility] VkiaqqjJPIYHOZHXQ2600-36-84 08:05:00 Test Item Value Reference Range Interpretation Comments MCH (test code = MCH) 30.7 pg 27.0-31.0 [facility] GuqkcofHCQHWIBEVW1869-45-81 08:05:0033.9[facility] [place] [id number] Patient Name: ELVIS FOX MR #: [id number] : 1995 Age/Sex: 22/M Req #: [id number] Adm Physician: MATILDA KOHLER MD Ordered by: GIA SMITH MD Report #: [id number] Location: MED/SURG Room/Bed: [facility] Procedure: [id number] NM/GASTRIC EMPTYING Exam Date: 05/08/17 Exam Time: 0900 REPORT STATUS: Signed Solid-phase gastric emptying study Reason for examination: Chronic nausea and vomiting x1 year. The protocol used for this study is based on the Consensus Recommendations for Gastric Scintigraphy by the [place] Neurogastro[employer]ology and [employer] Society and the Society of Nuclear Medicine. Clinicalinformation: The patient is diabetic; blood glucose this morning was 279 mg/dL. The patient has not had previous gastrointestinal surgery. The patient is not on any medications expected to affectgastric motility. The patient has been fasting for [...] mean of the anterior and posterior counts andthe counts were corrected for decay of the radiolabel. The percent gastric retention of the labeled meal at: 1 hour was 92% (normal 30-90%) 2 hours was 89% (normal <60%; if value is greater than 55%, study is abnormal) Impression: Markedly prolonged gastric emptying. Findings support the clinical diagnosis of severe gastroparesis. Signed by: Dr. Kalee Broussard M.D. on 05/08/2017 9:26 PM Dictated By: KALEE BROUSSARD MD 25 Transcribed By: JESI on 05/08/172125 COPY TO: GIA SMITH MDUS ABDOMEN COMPLETE [place] [address] Patient Name: ELVIS FOX MR #: [id number] : 1995 Age/Sex: 22/M Req #: [id number] Adm Physician: MATILDA KOHLER MD Ordered by: GIA SMITH MD Report #: [id number] Location: MED/SURG Room/Bed: [facility] Procedure: [id number] US/US ABDOMEN COMPLETE Exam Date: 05/08/17 Exam [...] Sonographic Hong's Sign: Negative Bile Ducts: Intrahepatic Ducts:No dilatation Extrahepatic Ducts: Common bile duct measures 0.4 cm, no dilatation Pancreas:Visualized portions of the pancreatic head, neck and proximal body are normal. Kidneys: Length: Right 12.6 cm Left 11.2 cm Echogenicity: Normal Collecting System: No hydronephrosis Stone: None Cyst/Mass: None Vessels: Aorta: Visualized portions are normalInferior Vena Cava: Visualized portions are normal Main Portal Vein: 0.9 cm, normal size with hepatopetal flow. Free Fluid: No ascites or pleural effusion IMPRESSION: Small volume gallbladder sludge versus vessel likely nonshadowing floating gallstones. Otherwise unremarkable study. Signed by: Dr. Thompson Villalobos M.D. on 05/08/2017 5:17 PM Dictated By: MEGAN VILLALOBOS MD, MD 16 Transcribed By: Sue 05/08/171716 COPY TO: GIA SMITH MDCT ABDOMEN/PELVIS WO [place] [address] Patient Name: ELVIS FOX MR #: [id number] : 1995 Age/Sex: 22/M Req #: [id number] Adm Physician: Ordered by: HANK JADE MD Report #: [id number] Location: ER Room/Bed: Procedure: [id number] CT/CT ABDOMEN/PELVIS WO Exam Date: 05/05/17 Exam Time: 1555 REPORT STATUS: Signed PROCEDURE: CT ABDOMEN AND PELVIS WITHOUT CONTRAST COMPARISON: None. INDICATIONS: ABDOMINAL PAIN, history of gastroparesis. TECHNIQUE: Axial CT images through the abdomen and pelvis were obtained without oral or IV contrast. C oronal and sagittal reformations were created. FINDINGS: Right kidney: No renal calculus,cortical mass, or hydronephrosis. No perinephric inflammation. Left kidney: No renal calculus, cortical mass, or hydronephrosis. No perinephric inflammation. Bladder/ureters: No ureter al dilatation or calculus. The bladder is normal. Liver: Normal attenuation. No evidence ofmass Spleen: Normal size and attenuation without mass Biliary: The gallbladder is present and appears normal. No biliary ductal dilatation. Pancreas: Normal attenuation without mass or ductal dilatation. Adrenal Glands: No evidence of mass Vasculature: Aorta and IVC are normal in diameter. GI: The stomach is normal in appearance and not dilated. The large bowel is distendedwith stool. No mural thickening or pericolonic inflammation. [...] Large amount of stool throughout the colon withoutevidence of inflammation. No bowel or gastric obstruction. Normal appendix. No renal calculus or obstructive uropathy. Dictated by: Saurabh Mcelroy M.D. on 05/05/2017 at 16:24 E lectronically approved by: Saurabh Mcelroy M.D. on 05/05/2017 at 16:24 Dictated By: SAURABH MCELROY MD [id number] Transcribed By: MAXIMILIANO on 05/05/17 9649 COPY TO: HANK JADE MD
[2020-10-03] MEDS ORDERED: NA CHLORIDE 0.9% 1,000 ML ONE (21:48)
[2020-10-03 22:02] LABS: Basophils % 0.3 % (0-1.3); Hematocrit 36.7 % (39.6-49.0); Lymphocytes % 6.6 % (15.3-44.8); RBC Red Blood Cell Count 4.16 M/uL (4.33-5.43)
[2020-10-03 22:07] LABS: ALT/SGPT 21 U/L (12-78); AST/SGOT 12 U/L (15-37); Albumin 4.2 g/dL (3.4-5.0); Alkaline Phosphatase 117 U/L (45-117); BUN Blood Urea Nitrogen 15 mg/dL (7-18); Bicarbonate 29 mmol/L (21-32); Bilirubin Direct 0.2 mg/dL (0-0.2); Bilirubin Total 0.7 mg/dL (0.2-1.0); Glucose Level 340 mg/dL (74-106); Lipase 62 U/L (73-393); Potassium 3.9 mmol/L (3.5-5.1); Protein, Total 7.8 g/dL (6.4-8.2); Sodium Level 141 mmol/L (136-145)
[2020-10-03] MEDS ORDERED: ONDANSETRON 4 MG/2 ML VIAL ONE (22:11)
[2020-10-03] MEDS ORDERED: MORPHINE 4 MG/ML SYR ONE ×2 (22:11→23:13)
[2020-10-03 23:06] LABS: SARS-COV-2 RT PCR NEGATIVE (NEGATIVE)
[2020-10-03] MEDS ORDERED: FAMOTIDINE 20 MG/2 ML VIAL IV ONE (23:13)
[2020-10-03 23:32] LABS: Blood Morphology Comment NOT SEEN (NOT SEEN); Platelet Estimate ADEQ
[2020-10-04 01:08] LABS: Urine Bacteria <20 /HPF (NONE SEEN); Urine RBC <5 /HPF (NONE SEEN); Urine Sperm PRESENT (NONE SEEN)
--- NOTE | 2020-10-04 01:15 | EDPHYS ---
Physician Documentation [facility] Name: Eric Andrade Age: 25 yrs Sex: Male : 1995 Arrival Date: 10/03/2020 Time: 21:10 Bed 13 Private MD: ED Physician Camacho Lazar HPI: 10/03 21:59 This 25 yrs old Male presents to ER via Ambulatory with complaints of pm1 Vomiting/Diarrhea, Abdominal Pain. 21:59 The patient presents to the emergency department with nausea, vomiting, diarrhea, pm1 abdominal pain, of the right upper quadrant and left upper quadrant, described as crampy, and does not radiate. Onset: The symptoms/episode began/occurred 1 day(s) ago. Possible causes: gastroparesis. The symptoms are aggravated by nothing. The symptoms are alleviated by nothing. Associated signs and symptoms: Pertinent negatives: dysuria, fever. Severity of symptoms: in the emergency department the symptoms are worse. The patient has experienced similar episodes in the past, multiple times, and the symptoms today are exactly the same, to previous DKA or gastroparesis. The patient has not recently seen a physician. Historical: - Allergies: 21:17 NKA; sg - PMHx: 21:17 Chronic Abdominal Pain; Diabetes - IDDM; sg - PSHx: 21:17 Cholecystectomy; sg - Immunization history:: Adult Immunizations up to date. - Social history:: Smoking status: Patient denies any tobacco usage or history of. ROS: 21:59 Constitutional: Negative for fever, chills, and weight loss, Cardiovascular: Negative pm1 for chest pain, palpitations, and edema, Respiratory: Negative for shortness of breath, cough, wheezing, and pleuritic chest pain. 21:59 Back: Negative for injury and pain, : Negative for injury, bleeding, discharge, and swelling, MS/Extremity: Negative for injury and deformity, Skin: Negative for injury, rash, and discoloration. 21:59 Neuro: Negative for headache, weakness, numbness, tingling, and seizure. 21:59 Abdomen/GI: Positive for abdominal pain, nausea, vomiting, and diarrhea. Exam: 21:59 Head/Face: Normocephalic, atraumatic. Cardiovascular: Regular rate and rhythm with a pm1 normal S1 and S2. No gallops, murmurs, or rubs. Normal PMI, no JVD. No pulse deficits. 21:59 Back: No spinal tenderness. No costovertebral tenderness. Full range of motion. Skin: Warm, dry with normal turgor. Normal color with no rashes, no lesions, and no evidence of cellulitis. MS/ Extremity: Pulses equal, no cyanosis. Neurovascular intact. Full, normal range of motion. 21:59 Constitutional: The patient appears in no acute distress, alert, awake, non-diaphoretic, non-toxic, well developed, well hydrated, well groomed, well nourished, in obvious pain. 21:59 Respiratory: the patient does not display signs of respiratory distress, Breath sounds: are clear throughout. 21:59 Abdomen/GI: Inspection: abdomen appears normal, Palpation: soft, in all quadrants, mild abdominal tenderness, in the right upper quadrant and left upper quadrant. 21:59 Neuro: Exam negative for acute changes, Orientation: is normal, Mentation: is normal, Motor: is normal, moves all fours, Gait: is steady, at a normal pace, without difficulty. Vital Signs: 21:17 Pulse 126; Resp 21; Pulse Ox 97% on R/A; sg 21:35 BP 122 / 84; Pulse 103; Resp 18; Pulse Ox 98% on R/A; em 22:00 BP 110 / 68; Pulse 101; Resp 20; Pulse Ox 99% on R/A; Pain 10/10; em 22:11 Temp 98.1(TE); em 23:00 BP 147 / 97; Pulse 114; Resp 22; Pulse Ox 96% on R/A; em 10/04 00:00 BP 116 / 76; Pulse 98; Resp 18; Pulse Ox 97% on R/A; Pain 10/10; em MDM: 10/03 21:25 Patient medically screened. pm1 10/04 00:23 Data reviewed: vital signs. Data interpreted: Pulse oximetry: on room air is 98 %. pm1 Interpretation: normal. 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 01:16 ED course: CT with possible cystitis and possible colitis. Patient's urine microscopy pm1 does not support UTI. No DKA present. Patient's likely diagnosis is his chronic abdominal pain due to gastroparesis. Will treat possible mild colitis with Cipro and Flagyl. 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 pm1 10/03 21:23 Order name: Basic Metabolic Panel; Complete Time: 22:21 pm1 10/03 21:23 Order name: CBC with Diff; Complete Time: 23:47 pm1 10/03 21:23 Order name: Hepatic Function; Complete Time: 22:51 pm1 10/03 21:23 Order name: Lipase; Complete Time: 22:51 pm1 10/03 21:24 Order name: COVID-19 : Document "Date of Symptom Onset" if Symptomatic. pm1 10/03 21:24 Order name: Flu pm1 10/03 21:27 Order name: CT Abd/Pelvis - IV Contrast Only pm1 10/03 22:04 Order name: Manual Differential; Complete Time: 23:47 EDMS 10/03 23:06 Order name: COVID-19/FLU A+B; Complete Time: 23:11 EDMS 10/03 23:29 Order name: Urine Microscopic Only; Complete Time: 01:13 pm1 10/03 21:23 Order name: IV Saline Lock; Complete Time: 21:40 pm1 10/03 21:23 Order name: Labs collected and sent; Complete Time: 21:40 pm1 10/03 23:29 Order name: Urine Dipstick-Ancillary (obtain specimen); Complete Time: 01:35 pm1 Administered Medications: 10/03 21:35 Drug: NS 0.9% 1000 ml Route: IV; Rate: 1000 ml; Site: right antecubital; em 22:30 Follow up: IV Status: Completed infusion; IV Intake: 1000ml em 21:57 Drug: Zofran (Ondansetron) 4 mg Route: IVP; Site: right antecubital; em 22:30 Follow up: Response: No adverse reaction; No change in condition; Nausea unchanged em 21:59 Drug: morphine 4 mg Route: IVP; Site: right antecubital; em 22:30 Follow up: Response: No adverse reaction; No change in condition; Nausea unchanged em 22:59 Drug: Pepcid (famotidine) 20 mg Route: IVP; Site: right antecubital; em 10/04 00:00 Follow up: Response: No adverse reaction em 10/03 23:00 Drug: morphine 4 mg Route: IVP; Site: right antecubital; em 10/04 00:00 Follow up: Response: No adverse reaction; No change in condition; Pain is unchanged, em physician notified 01:34 Drug: Phenergan 25 mg Route: IVP; Site: right antecubital; em 01:49 Follow up: Response: No adverse reaction; Marked relief of symptoms; Nausea is decreasedem 01:35 Drug: Flagyl 500 mg Volume: 100 ml; Route: IVPB; Rate: 200 ml/hr; Infused Over: 30 em mins; Site: right antecubital; 02:10 Follow up: Response: No adverse reaction; IV Status: Completed infusion; IV Intake: em 100ml 01:49 Drug: Cipro (ciprofloxacin) 500 mg Route: PO; em 02:10 Follow up: Response: No adverse reaction em 01:49 Drug: Salcha (HYDROcodone-acetaminophen) 10 mg-325 mg 1 tabs Route: PO; em 02:10 Follow up: Response: No adverse reaction; Marked relief of symptoms em Disposition: 04:52 Co-signature as Attending Physician, Camacho Lazar MD I agree with the assessment and tw4 plan of care. Disposition: 10/04/20 01:15 Discharged to Home. Impression: Unspecified abdominal pain - colitis, Nausea and vomiting. - Condition is Stable. - Discharge Instructions: Abdominal Pain, Adult, Colitis. - Prescriptions for Phenergan 25 mg Rectal Suppository - insert 1 suppository by RECTAL route every 6 hours As needed; 12 suppository. promethazine 25 mg Oral Tablet - take 1 tablet by ORAL route every 6 hours As needed; 20 tablet. Flagyl 500 mg Oral Tablet - take 1 tablet by ORAL route every 8 hours for 10 days; 30 tablet. Tylenol- Codeine #3 300-30 mg Oral Tablet - take 2 tablets by ORAL route every 4-6 hours As needed; 20 tablet. Cipro 500 mg Oral Tablet - take 1 tablet by ORAL route every 12 hours for 7 days; 14 tablet. - Medication Reconciliation Form, Thank You Letter, Antibiotic Education, Prescription Opioid Use form. - Follow up: Emergency Department; When: As needed; Reason: Worsening of condition. Follow up: Private Physician; When: 2 - 3 days; Reason: Recheck today's complaints, Continuance of care, Re-evaluation by your physician. - Problem is new. - Symptoms have improved. Signatures: Dispatcher [employer] [facility] John Solomon RN RN sg Wayne Haskins RN RN em Raheem Fuchs, INFORMATION SECURITY MANAGER-C INFORMATION SECURITY MANAGER-Cla1 Terrell Gonzáles, INTERVENTION MANAGER INTERVENTION MANAGER pm1 Camacho Lazar MD MD tw4 Corrections: (The following items were deleted from the chart) 10/03 22:25 21:25 CORONAVIRUS ordered. [facility] 22:25 21:25 Influenza Screen (A ordered. [facility] 10/04 02:14 01:15 10/04/2020 01:15 Discharged to Home. Impression: Unspecified abdominal pain - em colitis; Nausea and vomiting. Condition is Stable. Discharge Instructions: Abdominal Pain, Adult, Urinary Tract Infection, Adult, Gastroparesis. Prescriptions for Bentyl 20 mg Oral Tablet - take 1 tablet by ORAL route every 6 hours As needed; 20 tablet, Bactrim DS 800-160 mg Oral Tablet - take 1 tablet by ORAL route every 12 hours for 10 days; 20 tablet, Phenergan 25 mg Rectal Suppository - insert 1 suppository by RECTAL route every 6 hours As needed; 12 suppository, promethazine 25 mg Oral Tablet - take 1 tablet by ORAL route every 6 hours As needed; 20 tablet. and Forms are Medication Reconciliation Form, Thank You Letter, Antibiotic Education, Prescription Opioid Use. Follow up: Emergency Department; When: As needed; Reason: Worsening of condition. Follow up: Private Physician; When: 2 - 3 days; Reason: Recheck today's complaints, Continuance of care, Re-evaluation by your physician. Problem is new. Symptoms have improved. pm1
--- NOTE | 2020-10-04 01:15 | ER ---
Nurse's Notes [facility] Name: Eric Andrade Age: 25 yrs Sex: Male : 1995 Arrival Date: 10/03/2020 Time: 21:10 Bed 13 Private MD: Diagnosis: Unspecified abdominal pain-colitis;Nausea and vomiting Presentation: 10/03 21:17 Chief complaint: Patient states: High sugar at home for 1 day now, reports having sg nausea and vomiting, states diarrhea as well. pt vomiting for triage at this time, states unable to get into a comfortable position other than standing, states abdominal cramping as well as abdominal pain. Having felt like this might be DKA or my gastroparesis acting up, pt tearful for triage. Coronavirus screen: Client denies travel out of the [place] in the last 14 days. Client presents with at least one sign or symptom that may indicate coronavirus-19. Standard/surgical mask placed on the client. Provider contacted for isolation considerations. Ebola Screen: Patient negative for fever greater than or equal to 101.5 degrees Fahrenheit, and additional compatible Ebola Virus Disease symptoms Patient denies exposure to infectious person. Patient denies travel to an Ebola-affected area in the 21 days before illness onset. No symptoms or risks identified at this time. Initial Sepsis Screen: Does the patient meet any 2 criteria? HR > 90 bpm. Does the patient have a suspected source of infection? Yes: Acute abdominal pain. Risk Assessment: Do you want to hurt yourself or someone else?. Onset of symptoms was October 03, 2020. Care prior to arrival: None. Transition of care: patient was not received from another setting of care. 21:17 Acuity: PAGE 2 sg 21:17 Method Of Arrival: Ambulatory sg Historical: - Allergies: 21:17 NKA; sg - PMHx: 21:17 Chronic Abdominal Pain; Diabetes - IDDM; sg - PSHx: 21:17 Cholecystectomy; sg - Immunization history:: Adult Immunizations up to date. - Social history:: Smoking status: Patient denies any tobacco usage or history of. Screenin:30 Abuse screen: Denies threats or abuse. Nutritional screening: No deficits noted. em Tuberculosis screening: No symptoms or risk factors identified. Fall Risk None identified. Assessment: 21:30 General: Appears in no apparent distress. uncomfortable, Behavior is calm, cooperative, em appropriate for age, Denies fever. Pain: Complains of pain in abdomen Pain currently is 10 out of 10 on a pain scale. Neuro: Level of Consciousness is awake, alert, obeys commands, Oriented to person, place, time, situation. Cardiovascular: Capillary refill < 3 seconds Patient's skin is warm and dry. Respiratory: Airway is patent Respiratory effort is even, unlabored. GI: Abdomen is flat, Abd is soft X 4 quads Abdomen is tender to palpation X 4 quads. Reports diarrhea, nausea, vomiting. Derm: Skin is intact, is healthy with good turgor, Skin is pink, warm \T\ dry. Musculoskeletal: Capillary refill < 3 seconds, Range of motion: intact in all extremities. 23:00 Reassessment: Patient appears in no apparent distress at this time. Patient and/or em family updated on plan of care and expected duration. Pain level reassessed. Patient is alert, oriented x 3, equal unlabored respirations, skin warm/dry/pink. Patient states symptoms have not improved. 10/04 01:00 Reassessment: request something else for pain, pt grimacing and crying in room, em provider notified. 01:20 Reassessment: pending completion of IV ABX. em 01:22 Reassessment: reports nausea is back, provider notified. em 02:12 Reassessment: Patient appears in no apparent distress at this time. Patient and/or em family updated on plan of care and expected duration. Pain level reassessed. Patient is alert, oriented x 3, equal unlabored respirations, skin warm/dry/pink. Patient states feeling better. Vital Signs: 10/03 21:17 Pulse 126; Resp 21; Pulse Ox 97% on R/A; sg 21:35 BP 122 / 84; Pulse 103; Resp 18; Pulse Ox 98% on R/A; em 22:00 BP 110 / 68; Pulse 101; Resp 20; Pulse Ox 99% on R/A; Pain 10/10; em 22:11 Temp 98.1(TE); em 23:00 BP 147 / 97; Pulse 114; Resp 22; Pulse Ox 96% on R/A; em 10/04 00:00 BP 116 / 76; Pulse 98; Resp 18; Pulse Ox 97% on R/A; Pain 10/10; em ED Course: 10/03 21:10 Patient arrived in ED. cf2 21:17 Arm band placed on. sg 21:19 Triage completed. sg 21:20 [facility]rell [facility] pm1 21:20 Camacho Lazar MD is Attending Physician. pm1 21:27 Wayne Haskins, RN is Primary Nurse. em 21:30 Patient has correct armband on for positive identification. Placed in gown. Bed in low em position. Call light in reach. Adult w/ patient. Pulse ox on. NIBP on. 21:35 Initial lab(s) drawn, by me, sent to lab. Inserted saline lock: 20 gauge in right em antecubital area, using aseptic technique. Blood collected. 22:44 CT Abd/Pelvis - IV Contrast Only In Process Unspecified. EDMS 10/04 02:11 No provider procedures requiring assistance completed. IV discontinued, intact, em bleeding controlled, No redness/swelling at site. Pressure dressing applied. Administered Medications: 10/03 21:35 Drug: NS 0.9% 1000 ml Route: IV; Rate: 1000 ml; Site: right antecubital; em 22:30 Follow up: IV Status: Completed infusion; IV Intake: 1000ml em 21:57 Drug: Zofran (Ondansetron) 4 mg Route: IVP; Site: right antecubital; em 22:30 Follow up: Response: No adverse reaction; No change in condition; Nausea unchanged em 21:59 Drug: morphine 4 mg Route: IVP; Site: right antecubital; em 22:30 Follow up: Response: No adverse reaction; No change in condition; Nausea unchanged em 22:59 Drug: Pepcid (famotidine) 20 mg Route: IVP; Site: right antecubital; em 04 00:00 Follow up: Response: No adverse reaction em 10/03 23:00 Drug: morphine 4 mg Route: IVP; Site: right antecubital; em 10/04 00:00 Follow up: Response: No adverse reaction; No change in condition; Pain is unchanged, em physician notified 01:34 Drug: Phenergan 25 mg Route: IVP; Site: right antecubital; em 01:49 Follow up: Response: No adverse reaction; Marked relief of symptoms; Nausea is decreasedem 01:35 Drug: Flagyl 500 mg Volume: 100 ml; Route: IVPB; Rate: 200 ml/hr; Infused Over: 30 em mins; Site: right antecubital; 02:10 Follow up: Response: No adverse reaction; IV Status: Completed infusion; IV Intake: em 100ml 01:49 Drug: Cipro (ciprofloxacin) 500 mg Route: PO; em 02:10 Follow up: Response: No adverse reaction em 01:49 Drug: Esmond (HYDROcodone-acetaminophen) 10 mg-325 mg 1 tabs Route: PO; em 02:10 Follow up: Response: No adverse reaction; Marked relief of symptoms em Intake: 04 22:30 IV: 1000ml; Total: 1000ml. em 04 02:10 IV: 100ml; Total: 1100ml. em Outcome: 01:15 Discharge ordered by MD. pm1 02:11 Discharged to home ambulatory. em 02:11 Condition: improved 02:11 Discharge instructions given to patient, Instructed on discharge instructions, follow up and referral plans. medication usage, Demonstrated understanding of instructions, follow-up care, medications, Prescriptions given X 5 02:14 Patient left the ED. em Signatures: Dispatcher [employer] EDJohn Solo RN RN sg Wayne Haskins RN RN em Terrell Gonzáles WEB SITE ADMIN WEB SITE ADMIN pm1 Ashley Jimenez 2 Corrections: (The following items were deleted from the chart) 10/03 22:55 21:17 Chief complaint: Patient states: High sugar at home for 1 day now, reports having sg nausea and vomiting, states diarrhea as well. pt vomiting for triage at this time, states unable to get into a comfortable position other than standing, states abdominal cramping as well as abdominal pain. Having felt like this might be DKA, pt tearful for triage sg
[2020-10-04] MEDS ORDERED: HYDROCODONE/APAP 10/325 TAB ONE (01:44)
[2020-10-04] MEDS ORDERED: CIPROFLOXACIN HCL 500 MG TAB ONE (01:45)
[2020-10-04] MEDS ORDERED: METRONIDAZOLE 500mg IVPB 500 MG/100 ML BAG IV ONE (01:45)
[2020-10-04] MEDS ORDERED: PROMETHAZINE INJ 25 MG/ML AMP ONE (01:46)
[2020-10-04 04:28] VITALS: TEMP 98.1
[2020-10-04 04:31] VITALS: BP 116/76; O2SAT 97
--- NOTE | 2020-10-04 14:02 | RAD REPORT ---
EXAM DESCRIPTION: CT Abdomen and Pelvis COMPARISON: None. CLINICAL HISTORY: [facility] MAIN ABD PAIN TECHNIQUE: CT of the abdomen and pelvis was acquired with IV contrast material. Coronal and sagitt al reconstructions were obtained. Automated exposure control was utilized on this examination as a dose lowering technique. FINDINGS: Lung bases: Clear. Liver: Normal. Gallbladder and biliary: Cholecystectomy. Unremarkable biliary tree. Pancreas: Normal. Spleen: Normal. Adrenal glands: Normal adrenal glands. Kidneys: Normal kidneys Stomach and Small Bowel: The stomach and small bowel are normal. Urinary bladder: Mild bladder wall thickening is present. Prostate/Male Urogenital: Normal. Colon and Appendix: Mild thickening of the transverse colon wall. No evidence of appendicitis. Retroperitoneum and lymph nodes: Normal. Vascular: Normal. Peritoneal cavity: No ascites or free air. Musculoskeletal and soft tissues: Soft tissues are unremarkable. No aggressive bone lesions. No com pression fracture. IMPRESSION: 1. Mild bladder wall thickening may be seen with cystitis in the appropriate setting. 2. Mild thickening of the transverse colon wall may be due to peristalsis or mild infectious or infla mmatory colitis. Electronically signed by: Douglas Beauchamp MD 10/03/2020 11:09 PM CDT Due to temporary technical issues with the PACS/Fluency reporting system, reports are being signed by the in house radiologists without review as a courtesy to insure prompt reporting. The interpreting radiologist is fully responsible for the content of the report.
[2020-10-07 14:34] LABS: Urine Blood Trace-intact (Negative); Urine Glucose 3+ (Negative); Urine Protein 2+ (Negative)
== END 2020-10-04 02:14 | disposition home or self-care (01) ==
LOC: ER 21:09
DX: K52.9 Noninfective gastroenteritis and colitis, unspecified (principal); Z20.822 Contact with and (suspected) exposure to COVID-19; E11.9 Type 2 diabetes mellitus without complications
CPT/HCPCS: 0240U; 36415; 74177; 80048; 80076; 81003; 81015; 83690; 85025; 96361; 96365; 96375; 99284; J2405; J2550; J7030; Q9967

== ENCOUNTER 2020-10-04 05:58 | Inpatient (IN) | payer OTHER ==
--- OUTSIDE RECORDS SUMMARY | 2020-10-04 06:05 | XMS REPORT | Continuity of Care Document ---
:1995 Author Organization [facility] t Address [address] [place] [address] Support Name Relationship Address Phone NONE, GIVEN Unavailable [address] [phone] [place] [address] NONE, GIVEN Unavailable [address] [phone] [place] [address] DOMINIQUE FRANCIA Unavailable [address] [phone] [address] [place] [address] DOMINIQUE LAKIA Unavailable [address] [phone] [address] [place] [address] BRETT FOXARITA Unavailable [address] [phone] [address] [place] [address] VANDANA CURRY Unavailable N/A [phone] [place] [address] Vandana Fox Spouse [address] [place] [address] Brigitte Calloway Other [address] [phone] [place] [address] Vandana Fox Spouse [address] [place] [address] VANDANA CURRY Unavailable [phone] [address]ALLO [phone] [place] [address] KIARA FORDE Unavailable [phone] [employer] [phone] [place] [address] NO, OTHER Unavailable [phone] [employer] [phone] [place] [address] KIARA FORDE Unavailable UNKNOWN [phone] [place] [address] GUITERRIZ, KIARA Unavailable [address] [place] [address] Vandana Fox [address] [place] [address] Care Team Providers Name Role Phone Roger Keyshawn BERMEO Brennan Attending Clinician Shahana RDZ, A Attending Clinician Unavailable Nadir REDD, Ceci Attending Clinician Demetrius REDD Attending Clinician Lorenzo [...] Memoria E 07-19 21:52:00 l ABDOMINAL 00:00: Bhavesh PAIN, INTRACTABL 00 LEUKOCYTOS E IS ABDOMINAL PAIN, LEUKOCYTOS IS Active [facility] Diagnosis Active 2014-11-05 Mem oria 5-05 05:09:00 l LWBS 00:00: [place] 00 Active 11/04/2014 [facility] HYPERGLYCE Diagnosis Active 2013-03-08 Memoria SUSAN, 03-05 08:28:00 l KETOSIS 00:00: Bhavesh W/O HYPERGLYCE 00 ACIDOSIS SUSAN, KETOSIS W/O ACIDOSIS Active 03/05/2013 [facility] HIGH BLOOD Diagnosis Active 2013-03-05 Memoria SUGAR 03-05 14:23:00 l HIGH 00:00: [place] BLOOD 00 SUGAR Active 03/05/2013 [facility] UNSPECIFIE Diagnosis Active 2017-05-23 Memoria D 21:52:00 l ABDOMINAL Bhavesh PAIN UNSPECIFIE D ABDOMINAL PAIN Active [facility] ELEVATED Diagnosis Active 2017-05-23 M emoria WHITE 21:52:00 l BLOOD CELL ELEVATED He rmann COUNT, WHITE UNSPECI BLOOD CELL COUNT, UNSPECI Active [facility] HYPERGLYCE Diagnosis Active 2017-05-23 Memoria SUSAN, 21:52:00 l UNSPECIFIE Ruben n D HYPERGLYCE SUSAN, UNSPECIFIE D Active [facility] Diabetes Problem Resolve 2017-05-22 Me moria mellitus d 04:07:01 l (disorder) Diabetes He rmann mellitus (disorder) Resolved Problem 05/22/2017 [facility] Allergies, Adverse Reactions, Alerts Allergy Allergy Status Severity Reaction(s) Onset Inactive Treating Comm ents Source Name Type Date Date Clinician No Known DA Active U 2019-07 [facility] No Known DA Active U 2017-07 [facility] Allergie 0-24 [facility] No Known DA Active U 2017-07 [facility] 0[facility] No Known DA Active U [facility] 9- [facility] Social History Social Habit Start Date Stop Date Quantity Comments Source Sex Assigned At [facility] alth Social History 2014-11-05 2014-11-05 [facility] 05:24:00 05:24:00 Smoking Status Start Date Stop Date Source Social History [facility] Medications Ordered Filled Start Stop Current Ordering Indication Dosage Frequency Signature Comments Components Source Medication Medication Date Date Medication? Clinician (SIG) Name Name Metronidazo 2016-07 Yes 500 mg = 1 Memoria le 500 MG -17 tab, PO, l Oral Tablet 20:37: Q8H, X 7 He rmann [Flagyl] day, # 21 tab, 0 Refill(s) ciprofloxac 2016-07 Yes 500 mg = 1 Memoria in 500 mg -17 tab, PO, l oral tablet 20:36: Q12H, [...] Pain Score 7-10, Start date: 05/19/17 9:58:00 OPS ANALYST, Duration: 30 day, Stop date: 06/18/17 9:57:00 OPS ANALYST Dilaudid 2016-07 No 0.5 mg, Memori a 1-17 Route: l 15:58: IVP, ONCE, Dosing Weight 49.545, kg, Priority: STAT, Start date: 05/19/17 9:58:00 OPS ANALYST, Stop date: 05/19/17 9:58:00 OPS ANALYST Promethazin 2016-07 No Notes: Enmanuel héctor e -17 (Same as: l 15:58: Phenergan) Zosyn 2016-07 No Notes: Memoria 1-17 (Same as: l 14:00: Zosyn) Dosing based on Piperacill in component MEDICATION WASTE Product Size: 3375 mg Product Wasted: ___ mg Metoclopram 2016-07 No 10 mg = 1 M emoria april 10 MG -17 tab, PO, l Oral Tablet 13:50: QID, # 28 H ermann [Reglan] 00 tab, 0 Refill(s) NovoLog 2016-07 Yes 15 unit, Memori a 1-17 SUB-Q, l 13:50: TID-Before Meals, 0 Refill(s) normal 2016-07 No 1,000 mL, Memori a saline 0.9% 1-17 Rate: 120 l IV 1,000 mL 13:48: ml/hr, Infuse over: 8.3 hr, Route: IV, Dosing Weight 49.545 kg, Total Volume: 1,000, Start date: 05/19/17 7:48:00 OPS ANALYST, Duration: 30 day, Stop date: 06/18/17 7:47:00 OPS ANALYST, 1.53, m2 morphine 2016-07 No Notes: Memoria Sulfate 1-17 (Same l 13:04: as:MORPhin [place] e Sulfate) Insulin 2016-07 No Notes: Memoria Glargine -17 (Same as: l 100 UNT/ML 12:32: Lantus) Do H ermann Injectable 00 not hold Solution insulin [Lantus] without contacting prescriber WASTE: F/P - Black; E - Municipal Trash Bin "single patient use only" Saline 2016-07 No Notes: Memoria Flush 0.9% -17 (Same as: l 12:31: BD Bhavesh 00 Posiflush) Ondansetron 2016-07 No Notes: Enmanuel héctor -17 (Same as: l 12:31: Zofran) [place] 00 MEDICATION WASTE Product Size: 4 mg Product Wasted: ___ mg Acetaminoph 2016-07 No Notes: Enmanuel héctor en 325 MG / -17 (Same as: l Hydrocodone 12:31: [place] Aniya nn Bitartrate 00 325/5) Do 5 MG Oral not exceed Tablet 4gm/day of acetaminop hen. Morphine 2016-07 No 2 mg, Memoria 1-17 Route: l 12:31: IVP, Q4H, [place] Dosing Weight 49.545, kg, PRN Pain Score 7-10, Start date: 05/19/17 6:31:00 OPS ANALYST, Duration: 30 day, Stop date: 06/18/17 6:30:00 OPS ANALYST Sodium 2016-07 No 1,000 mL, Memori a Chloride 07-19 Rate: 125 l 0.9% IV 12:31: ml/hr, [place] 1,000 mL 00 Infuse over: 8 hr, Route: IV, Dosing Weight 49.545 kg, Total Volume: 1,000, Start date: 05/19/17 6:31:00 OPS ANALYST, Duration: 30 day, Stop date: 06/18/17 6:30:00 OPS ANALYST, 1.53, m2 Insulin 2016-07 No Notes: Memoria [...] Blood Glucose Results, Start date: 05/19/17 6:31:00 OPS ANALYST, Duration: 30 day, Stop date: 06/18/17 6:30:00 OPS ANALYST Dextrose 2016-07 No 25 gm, 50 Enmanuel héctor 50% Syringe 1-17 mL, Route: l 12:31: IVP, Drug [place] 00 Form: INJ, Dosing Weight 49.545, kg, PRN, PRN Blood Glucose Results, Start date: 05/19/17 6:31:00 OPS ANALYST, Duration: 30 day, Stop date: 06/18/17 6:30:00 OPS ANALYST Lorazepam 2016-07 No 1 mg, Memoria 07-19 Route: l 11:52: IVP, Drug [place] 00 form: INJ, ONCE, Dosing Weight 49.545, kg, Priority: STAT, Start date: 05/19/17 5:52:00 OPS ANALYST, Stop date: 05/19/17 5:52:00 OPS ANALYST Morphine 2016-07 No 4 mg, Memoria 07-19 Route: l 09:46: IVP, ONCE, [place] 00 Dosing Weight 49.545, kg, Priority: STAT, Start date: 05/19/17 3:46:00 OPS ANALYST, Stop date: 05/19/17 3:46:00 OPS ANALYST Zofran 2016-07 No 4 mg, Memoria 07-19 Route: l 09:46: IVP, Drug Bhavesh 00 form: INJ, ONCE, Dosing Weight 49.545, kg, Priority: STAT, Start date: 05/19/17 3:46:00 OPS ANALYST, Stop date: 05/19/17 3:46:00 OPS ANALYST Sodium 2016-07 No 1,486.35 Memoria Chloride 17 mL, 2,000 l 0.9% 07:54: ml/hr, [place] (Bolus) IV 00 Route: IV, ONCE, Priority: STAT, Dosing Weight 49.545 kg, Start date: 05/19/17 1:54:00 OPS ANALYST, Stop date: 05/19/17 1:54:00 OPS ANALYST, Sepsis dose. Vital Signs Vital Name Observation Time Observation Value Comments Source Respitory Rate 2017-05-19 17:03:00 Memori al Bhavesh Systolic (mm Hg) 2017-05-19 17:03:00 Enmanuel rial Bhavesh Diastolic (mm Hg) 2017-05-19 17:03:00 Mem orial [place] Temperature Oral (F) 2017-05-19 17:03:00 97.6 F [facility] Heart Rate 2017-05-19 17:03:00 [facility] Weight 2017-05-19 13:26:00 [facility] 2017-05-19 13:26:00 [facility]18 [facility] BMI Calculated 2017-05-19 13:26:00 Memori al Bhavesh Systolic (mm Hg) 2017-05-19 13:13:00 Enmanuel rial [place] Diastolic (mm Hg) 2017-05-19 13:13:00 Mem orial [place] Respitory Rate 2017-05-19 13:13:00 Memori al Bhavesh Temperature Oral (F) 2017-05-19 13:13:00 97.9 F Memorial [place] Heart Rate 2017-05-19 13:13:00 [facility] Bhavesh Temperature Oral (F) 2017-05-19 12:10:00 97.9 F [facility] Heart Rate 2017-05-19 12:10:00 Memorial [place] Respitory Rate 2017-05-19 12:10:00 Memori al Bhavesh Systolic (mm Hg) 2017-05-19 12:10:00 Enmanuel rial [place] Diastolic (mm Hg) 2017-05-19 12:10:00 Mem orial Bhavesh Height 2017-05-19 06:15:00 170.18 cm [facility] Bhavesh BMI Calculated 2017-05-19 06:15:00 Memori al [place] Weight 2017-05-19 06:15:00 Memorial [place] Temperature Oral (F) 2014-11-04 23:43:00 98.1 F [facility] Bh[facility]h Weight 2014-11-04 23:43:00 [facility] Bhavesh BMI Calculated 2014-11-04 23:43:00 Memori al [place] Height 2014-11-04 23:43:00 170.18 cm Memorial [place] Systolic (mm Hg) 2014-11-04 23:43:00 Enmanuel rial Bhavesh Diastolic (mm Hg) 2014-11-04 23:43:00 Mem orial [place] Respitory Rate 2014-11-04 23:43:00 Memori al Bhavesh Heart Rate 2014-11-04 23:43:00 [facility] Procedures Procedure Date / Time Performing Clinician Source Performed Laparoscopic [facility] Bhavesh cholecystectomy Plan of Care Planned Activity Planned Date Details Comments Source Future Scheduled Test 2020-04-02 00:00:00 IMM Influenza [facility] Seasonal Apr to August (>/= 19 yrs) [code = IMM Influenza Seasonal Apr to August (>/= 19 yrs)] Encounters Start End Encounter Admission Attending Care Care Encounter Source Date/Time Date/Time Type Type Clinicians Facility Department ID 2020-09-22 2020-09-22 Patient RANI Duran [id number] 00:00:00 00:00:00 Outreach Keyshawn PRIMARY [id number] Brennan CARE [id number] [place] [id number] 2020-07-01 2020-07-01 Transition Amalia Harkins 1.2.840.114 [id number] 00:00:00 00:00:00 of Care Bartolo Da Silva [id number] [place] [id number] [id number] 2020-06-27 2020-06-29 [facility] .2.840.114 [id number] 18:51:00 16:00:00 Encounter Tomy Romo [id number] [facility] [id number] [id number] 2020-06-20 2020-06-21 [facility] Ramone Church [facility] 1.2.840.1 [id number] 09:39:00 16:00:00 Encounter Amrit Jose R [place] [id number] [place] [id number] [place] [id number] 080 2020 2020 Patient Fariha Franco Amalia 1.2.840.114 [id number] 00:00:00 00:00:00 Outreach E Da Silva [id number] [place] 4.2.7.2.686 [id number] 2020-02-14 2020-02-14 Patient Fariha Franco Amalia 1.2.840.114 [id number] 00:00:00 00:00:00 Outreach E Da Silva [id number] [place] 4.2.7.2.686 [id number] 2020-01-29 2020-01-29 Patient Kunal Amalia 1.2.840.114 [id number] 00:00:00 00:00:00 Outreach Sirena E Da Silva [id number] [place] 4.2.7.2.686 [id number] 2020-01-14 2020-01-14 Transition Amalia Rodriguez 1.2.840.114 [id number] 00:00:00 00:00:00 of Care Chasity Da Silva [id number] [place] 4.2.7.2.686 [id number] 403 2020-01-13 2020-01-13 Transition Amalia Rodriguez 1.2.840.114 [id number] 00:00:00 00:00:00 of Care Chasity Da Silva [id number] [place] 4.2.7.2.686 [id number] 2020-01-07 2020-01-10 [facility] Jerad Nayak [facility] 1.2.840.1 [id number] 18:27:56 19:30:00 Encounter Wally Castillo Bruna [id number] [place] 4.2.7.2.686 [place] [id number] 2020-01-08 2020-01-08 Telephone Jerad Nayak 1.2.840.114 [id number] 00:00:00 00:00:00 Marlene VILLAVICENCIO [id number] [id number] 2019-05-20 2019-05-20 Emergency [facility] [id number] [place] 10:54:24 10:54:24 Health 2019-04-09 2019-04-09 Emergency [facility] MED [id number] [place] 10:22:28 10:22:28 Health 2019-03-02 2019-03-02 Emergency Singer [facility] [id number] 07:25:27 12:02:00 Lester Mcfarland 350.1.13.10 [place] 4.2.7.2.686 [place] [id number] [facility] 2019-02-25 2019-02-25 Telephone Jean [facility] 1.2.840.114 [id number] 00:00:00 00:00:00 Sandra Mcfarland 350.1.13.10 [place] 4.2.7.2.686 [facility] [id number] [facility] 231 [facility] 2019-02-22 2019-02-22 Office Rodrigo [facility] 1.2.840.114 [id number] 09:09:32 10:33:37 Visit [facility] [id number] [place] 4.2.7.2.686 [place] [id number] [facility] 2019-02-21 2019-02-21 Telephone Jean [facility] 1.2.840.114 [id number] 00:00:00 00:00:00 Sandra Mcfarland 350.1.13.10 [place] 4.2.7.2.686 [facility] [id number] [facility] 044 [facility] 2019-02-11 2019-02-11 Refill Jean [facility] 1.2.840.114 [id number] 00:00:00 00:00:00 Sandra Mcfarland 350.1.13.10 [place] 4.2.7.2.686 Edwin [id number] [address] 2017-05-19 2017-05-19 Outpatient Uasma Platt [facility] [id number] 00:13:00 16:15:00 Thalakularadha 02 u 2014-11-04 2014-11-05 Outpatient Eleazar [facility] [id number] 18:13:00 00:24:00 Vin 01 Manish Results Test Description Test Time Test Comments Results Result Comments Source GLUBED 2020-06-26 13:58:00 Test Item Value Reference Range Interpretation Comme nts GLUBED (test code = GLUBED) 162 mg/dL 74-106 H Performed by certified linderman operator at [facility] [id number] 13:12:00 Test Item Value Reference Range Interpretation Comments GLUBED (test code = 171 mg/dL 74-106 H Performe d by certified GLUBED) linderman operator at [facility] BASIC METABOLIC [id number] 12:42:00 Test Item Value Reference Range Interpretation [...] code = 7.6 mg/dL 8.5-10.1 L CA) [id number] 12:42:00 Test Item Value Reference Range Interpretation Comments PHOSPHORUS (test code = PHOS) 1.7 mg/dL 2.5-4.9 L [id number] 12:42:00 Test Item Value Reference Range Interpretation Comments MAGNESIUM (test code = MAG) 1.8 mg/dL 1.8-2.4 N CALCIUM [id number] 12:42:00 Test Item Value Reference Range Interpretation Comments CALCIUM IONIZED (test code = FRANDY) mmol/L 1.12-1.32 BASIC METABOLIC [id number] 12:42:00 Test Item Value Reference Range Interpretation [...] GFR) formula.Chronic kidney disease is defined as [facility] kidney damageor GFR <60 mL/min/1.73 m2 for >3 months. CREATININE (test code 0.70 mg/dL 0.7-1.3 N = CREAT) BUN/CREATININE RATIO 20.6 10-20 H (test code = BUN/CREA) CALCIUM (test code = 7.6 mg/dL 8.5-10.1 L CA) [id number] 12:42:00 Test Item Value Reference Range Interpretation Comments PHOSPHORUS (test code = PHOS) 1.7 mg/dL 2.5-4.9 L [id number] 12:42:00 Test Item Value Reference Range Interpretation Comments MAGNESIUM (test code = MAG) 1.8 mg/dL 1.8-2.4 N CALCIUM [id number] 12:42:00 Test Item Value Reference Range Interpretation Comments CALCIUM IONIZED (test code = FRANDY) 1.29 mmol/L 1.12-1.32 N [id number] 12:08:00 Test Item Value Reference Range Interpretation Comments GLUBED (test code = 226 mg/dL 74-106 H Performe d by certified GLUBED) linderman operator at [facility] BASIC METABOLIC [id number] 09:44:00 Test Item Value Reference Range Interpretation [...] GFR) formula.Chronic kidney disease is defined as [facility] kidney damageor GFR <60 mL/min/1.73 m2 for >3 months. CREATININE (test code 0.80 mg/dL 0.7-1.3 N = CREAT) BUN/CREATININE RATIO 22.1 10-20 H (test code = BUN/CREA) CALCIUM (test code = 7.6 mg/dL 8.5-10.1 L CA) [id number] 09:44:00 Test Item Value Reference Range Interpretation Comments PHOSPHORUS (test code = PHOS) 2.5 mg/dL 2.5-4.9 N [id number] 09:44:00 Test Item Value Reference Range Interpretation Comments MAGNESIUM (test code = MAG) 1.9 mg/dL 1.8-2.4 N CALCIUM [id number] 09:44:00 Test Item Value Reference Range Interpretation Comments CALCIUM IONIZED (test code = FRANDY) 1.23 mmol/L 1.12-1.32 N [id number] 09:40:00 Test Item Value Reference Range Interpretation Comments GLUBED (test code = 383 mg/dL 74-106 H Performe d by certified GLUBED) linderman operator at [facility] BASIC METABOLIC [id number] 09:38:00 Test Item Value Reference Range Interpretation [...] CALCIUM (test code = CA) mg/dL 8.5-10.1 [id number] 09:38:00 Test Item Value Reference Range Interpretation Comments PHOSPHORUS (test code = PHOS) mg/dL 2.5-4.9 [id number] 09:38:00 Test Item Value Reference Range Interpretation Comments MAGNESIUM (test code = MAG) mg/dL 1.8-2.4 CALCIUM [id number] 09:38:00 Test Item Value Reference Range Interpretation Comments CALCIUM IONIZED (test code = FRANDY) 1.23 mmol/L 1.12-1.32 N BASIC METABOLIC [id number] 09:31:00 Test Item Value Reference Range Interpretation [...] CALCIUM (test code = CA) mg/dL 8.5-10.1 [id number] 09:31:00 Test Item Value Reference Range Interpretation Comments PHOSPHORUS (test code = PHOS) mg/dL 2.5-4.9 [id number] 09:31:00 Test Item Value Reference Range Interpretation Comments MAGNESIUM (test code = MAG) mg/dL 1.8-2.4 CALCIUM [id number] 09:31:00 Test Item Value Reference Range Interpretation Comments CALCIUM IONIZED (test code = FRANDY) 1.23 mmol/L 1.12-1.32 N [id number] 08:56:00 Test Item Value Reference Range Interpretation Comments GLUBED (test code = 335 mg/dL 74-106 H Performe d by certified GLUBED) linderman operator at [facility] [id number] 07:42:00 Test Item Value Reference Range Interpretation Comments GLUBED (test code = 413 mg/dL 74-106 H Performe d by certified GLUBED) linderman operator at [facility] [id number] 04:33:00 Test Item Value Reference Range Interpretation Comments GLUBED (test code = 396 mg/dL 74-106 H Performe d by certified GLUBED) linderman operator at [facility] [id number] 04:04:00 Test Item Value Reference Range Interpretation Comments PHOSPHORUS (test code = PHOS) 2.1 mg/dL 2.5-4.9 L [id number] 04:04:00 Test Item Value Reference Range Interpretation Comments MAGNESIUM (test code = MAG) 1.8 mg/dL 1.8-2.4 N CALCIUM [id number] 04:04:00 Test Item Value Reference Range Interpretation Comments CALCIUM IONIZED (test code = FRANDY) 1.24 mmol/L 1.12-1.32 N BASIC METABOLIC [id number] 04:04:00 Test Item Value Reference Range Interpretation [...] 8.1 mg/dL 8.5-10.1 L CA) BASIC METABOLIC [id number] 03:47:00 Test Item Value Reference Range Interpretation [...] GFR by RATE (test code = using Arsah fied MDRD GFR) formula.Chronic kidney disease is defined as [facility] kidney damageor GFR <60 mL/min/1.73 m2 for >3 months. CREATININE (test code 0.60 mg/dL 0.7-1.3 L = CREAT) BUN/CREATININE RATIO 24.7 10-20 H (test code = BUN/CREA) CALCIUM (test code = 8.1 mg/dL 8.5-10.1 L CA) BASIC METABOLIC [id number] 03:46:00 Test Item Value Reference Range Interpretation [...] code = 8.1 mg/dL 8.5-10.1 L CA) [id number] 03:20:00 Test Item Value Reference Range Interpretation Comments PHOSPHORUS (test code = PHOS) 2.1 mg/dL 2.5-4.9 L [id number] 03:20:00 Test Item Value Reference Range Interpretation Comments MAGNESIUM (test code = MAG) 1.8 mg/dL 1.8-2.4 N CALCIUM [id number] 03:20:00 Test Item Value Reference Range Interpretation Comments CALCIUM IONIZED (test code = FRANDY) mmol/L 1.12-1.32 [id number] 03:15:00 Test Item Value Reference Range Interpretation Comments PHOSPHORUS (test code = PHOS) mg/dL 2.5-4.9 [id number] 03:15:00 Test Item Value Reference Range Interpretation Comments MAGNESIUM (test code = MAG) 1.8 mg/dL 1.8-2.4 N CALCIUM [id number] 03:15:00 Test Item Value Reference Range Interpretation Comments CALCIUM IONIZED (test code = FRANDY) mmol/L 1.12-1.32 CBC W/AUTO [id number] 02:57:00 Test Item Value Reference Range Interpretation [...] (test code NO = MDIFF) BASIC METABOLIC [id number] 21:52:00 Test Item Value Reference Range Interpretation [...] GFR) formula.Chronic kidney disease is defined as [facility] kidney damageor GFR <60 mL/min/1.73 m2 for >3 months. CREATININE (test code 0.60 mg/dL 0.7-1.3 L = CREAT) BUN/CREATININE RATIO 19.5 10-20 N (test code = BUN/CREA) CALCIUM (test code = 7.8 mg/dL 8.5-10.1 L CA) [id number] 21:52:00 Test Item Value Reference Range Interpretation Comments PHOSPHORUS (test code = PHOS) 2.0 mg/dL 2.5-4.9 L [id number] 21:52:00 Test Item Value Reference Range Interpretation Comments MAGNESIUM (test code = MAG) 1.9 mg/dL 1.8-2.4 N CALCIUM [id number] 21:52:00 Test Item Value Reference Range Interpretation Comments CALCIUM IONIZED (test code = FRANDY) 1.22 mmol/L 1.12-1.32 N BASIC METABOLIC [id number] 21:41:00 Test Item Value Reference Range Interpretation [...] CALCIUM (test code = CA) mg/dL 8.5-10.1 [id number] 21:41:00 Test Item Value Reference Range Interpretation Comments PHOSPHORUS (test code = PHOS) mg/dL 2.5-4.9 [id number] 21:41:00 Test Item Value Reference Range Interpretation Comments MAGNESIUM (test code = MAG) mg/dL 1.8-2.4 CALCIUM [id number] 21:41:00 Test Item Value Reference Range Interpretation Comments CALCIUM IONIZED (test code = FRANDY) mmol/L 1.12-1.32 BASIC METABOLIC [id number] 21:41:00 Test Item Value Reference Range Interpretation [...] CALCIUM (test code = CA) mg/dL 8.5-10.1 [id number] 21:41:00 Test Item Value Reference Range Interpretation Comments PHOSPHORUS (test code = PHOS) mg/dL 2.5-4.9 [id number] 21:41:00 Test Item Value Reference Range Interpretation Comments MAGNESIUM (test code = MAG) mg/dL 1.8-2.4 CALCIUM [id number] 21:41:00 Test Item Value Reference Range Interpretation Comments CALCIUM IONIZED (test code = FRANDY) 1.22 mmol/L 1.12-1.32 N [id number] 20:28:00 Test Item Value Reference Range Interpretation Comments GLUBED (test code = 135 mg/dL 74-106 H Performe d by certified GLUBED) linderman operator at [facility] [id number] 18:47:00 Test Item Value Reference Range Interpretation Comments GLUBED (test code = 53 mg/dL 74-106 L Performe d by certified GLUBED) linderman operator at [facility] BASIC METABOLIC [id number] 17:59:00 Test Item Value Reference Range Interpretation [...] GFR) formula.Chronic kidney disease is defined as [facility] kidney damageor GFR <60 mL/min/1.73 m2 for >3 months. CREATININE (test code 0.70 mg/dL 0.7-1.3 N = CREAT) BUN/CREATININE RATIO 18.0 10-20 N (test code = BUN/CREA) CALCIUM (test code = 7.4 mg/dL 8.5-10.1 L CA) [id number] 17:43:00 Test Item Value Reference Range Interpretation Comments GLUBED (test code = 109 mg/dL 74-106 H Performe d by certified GLUBED) [place] operator at [facility] [id number] 16:31:00 Test Item Value Reference Range Interpretation Comments GLUBED (test code = 153 mg/dL 74-106 H Performe d by certified GLUBED) [place] operator at [facility] [id number] 16:31:00 Test Item Value Reference Range Interpretation Comments GLUBED (test code = 197 mg/dL 74-106 H Performe d by certified GLUBED) [place] operator at [facility] BASIC METABOLIC [id number] 16:17:00 Test Item Value Reference Range Interpretation [...] GFR) formula.Chronic kidney disease is defined as [facility] kidney damageor GFR <60 mL/min/1.73 m2 for >3 months. CREATININE (test code 0.70 mg/dL 0.7-1.3 N = CREAT) BUN/CREATININE RATIO 20.7 10-20 H (test code = BUN/CREA) CALCIUM (test code = 7.9 mg/dL 8.5-10.1 L CA) [id number] 16:17:00 Test Item Value Reference Range Interpretation Comments PHOSPHORUS (test code = PHOS) 1.9 mg/dL 2.5-4.9 L [id number] 16:17:00 Test Item Value Reference Range Interpretation Comments MAGNESIUM (test code = MAG) 1.9 mg/dL 1.8-2.4 N CALCIUM [id number] 16:17:00 Test Item Value Reference Range Interpretation Comments CALCIUM IONIZED (test code = FRANDY) 1.28 mmol/L 1.12-1.32 N BASIC METABOLIC [id number] 16:05:00 Test Item Value Reference Range Interpretation [...] CALCIUM (test code = CA) mg/dL 8.5-10.1 [id number] 16:05:00 Test Item Value Reference Range Interpretation Comments PHOSPHORUS (test code = PHOS) mg/dL 2.5-4.9 [id number] 16:05:00 Test Item Value Reference Range Interpretation Comments MAGNESIUM (test code = MAG) mg/dL 1.8-2.4 CALCIUM [id number] 16:05:00 Test Item Value Reference Range Interpretation Comments CALCIUM IONIZED (test code = FRANDY) 1.28 mmol/L 1.12-1.32 N BASIC METABOLIC [id number] 15:59:00 Test Item Value Reference Range Interpretation [...] CALCIUM (test code = CA) mg/dL 8.5-10.1 [id number] 15:59:00 Test Item Value Reference Range Interpretation Comments PHOSPHORUS (test code = PHOS) mg/dL 2.5-4.9 [id number] 15:59:00 Test Item Value Reference Range Interpretation Comments MAGNESIUM (test code = MAG) mg/dL 1.8-2.4 CALCIUM [id number] 15:59:00 Test Item Value Reference Range Interpretation Comments CALCIUM IONIZED (test code = FRANDY) 1.28 mmol/L 1.12-1.32 N [id number] 14:56:00 Test Item Value Reference Range Interpretation Comments GLUBED (test code = 249 mg/dL 74-106 H Performe d by certified GLUBED) [facility] at [facility] [id number] 14:01:00 Test Item Value Reference Range Interpretation Comments GLUBED (test code = 285 mg/dL 74-106 H Performe d by certified GLUBED) [facility] at [facility] [id number] 12:53:00 Test Item Value Reference Range Interpretation Comments GLUBED (test code = 324 mg/dL 74-106 H Performe d by certified GLUBED) [facility] BASIC METABOLIC [id number] 12:29:00 Test Item Value Reference Range Interpretation [...] code = 8.1 mg/dL 8.5-10.1 L CA) [id number] 12:29:00 Test Item Value Reference Range Interpretation Comments PHOSPHORUS (test code = PHOS) 2.4 mg/dL 2.5-4.9 L [id number] 12:29:00 Test Item Value Reference Range Interpretation Comments MAGNESIUM (test code = MAG) 1.9 mg/dL 1.8-2.4 N CALCIUM [id number] 12:29:00 Test Item Value Reference Range Interpretation Comments CALCIUM IONIZED (test code = FRANDY) 1.32 mmol/L 1.12-1.32 N BASIC METABOLIC [id number] 12:21:00 Test Item Value Reference Range Interpretation [...] CALCIUM (test code = mg/dL 8.5-10.1 CA) [id number] 12:21:00 Test Item Value Reference Range Interpretation Comments PHOSPHORUS (test code = PHOS) mg/dL 2.5-4.9 [id number] 12:21:00 Test Item Value Reference Range Interpretation Comments MAGNESIUM (test code = MAG) mg/dL 1.8-2.4 CALCIUM [id number] 12:21:00 Test Item Value Reference Range Interpretation Comments CALCIUM IONIZED (test code = FRANDY) 1.32 mmol/L 1.12-1.32 N BASIC METABOLIC [id number] 12:17:00 Test Item Value Reference Range Interpretation [...] CALCIUM (test code = CA) mg/dL 8.5-10.1 [id number] 12:17:00 Test Item Value Reference Range Interpretation Comments PHOSPHORUS (test code = PHOS) mg/dL 2.5-4.9 [id number] 12:17:00 Test Item Value Reference Range Interpretation Comments MAGNESIUM (test code = MAG) mg/dL 1.8-2.4 CALCIUM [id number] 12:17:00 Test Item Value Reference Range Interpretation Comments CALCIUM IONIZED (test code = FRANDY) 1.32 mmol/L 1.12-1.32 N [id number] 11:59:00 Test Item Value Reference Range Interpretation Comments GLUBED (test code = 307 mg/dL 74-106 H Performe d by certified GLUBED) [facility] at [facility] [id number] 11:59:00 Test Item Value Reference Range Interpretation Comments GLUBED (test code = 307 mg/dL 74-106 H Performe d by certified GLUBED) [facility] [id number] 11:59:00 Test Item Value Reference Range Interpretation Comments GLUBED (test code = 307 mg/dL 74-106 H Performe d by certified GLUBED) [facility] [id number] 11:59:00 Test Item Value Reference Range Interpretation Comments GLUBED (test code = 307 mg/dL 74-106 H Performe d by certified GLUBED) [facility] [id number] 10:55:00 Test Item Value Reference Range Interpretation Comments GLUBED (test code = 275 mg/dL 74-106 H Performe d by certified GLUBED) [facility] DRUGS OF ABUSE SCREEN [id number] 10:21:00 Test Item Value Reference Range Interpretation [...] (test NEGATIVE <300 ng/mL code = [place]) [id number] 09:53:00 Test Item Value Reference Range Interpretation Comments GLUBED (test code = 282 mg/dL 74-106 H Performe d by certified GLUBED) [facility] [id number] 08:53:00 Test Item Value Reference Range Interpretation Comments GLUBED (test code = 265 mg/dL 74-106 H Performe d by certified GLUBED) [facility] [id number] 07:48:00 Test Item Value Reference Range Interpretation Comments GLUBED (test code = 219 mg/dL 74-106 H Performe d by certified GLUBED) [facility] operator at [facility] DRUGS OF ABUSE SCREEN [id number] 07:14:00 Test Item Value Reference Range Interpretation [...] (test NEGATIVE <300 ng/mL code = [place]) [id number] 06:29:00 Test Item Value Reference Range Interpretation Comments GLUBED (test code = 203 mg/dL 74-106 H Performe d by certified GLUBED) [facility] [id number] 04:09:00 Test Item Value Reference Range Interpretation Comments GLUBED (test code = 149 mg/dL 74-106 H Performe d by certified GLUBED) [facility] [id number] 03:03:00 Test Item Value Reference Range Interpretation Comments GLUBED (test code = 120 mg/dL 74-106 H Performe d by certified GLUBED) [facility] [id number] 02:57:00 Test Item Value Reference Range Interpretation Comments PHOSPHORUS (test code = PHOS) 3.0 mg/dL 2.5-4.9 N [id number] 02:57:00 Test Item Value Reference Range Interpretation Comments MAGNESIUM (test code = MAG) 1.7 mg/dL 1.8-2.4 L CALCIUM [id number] 02:57:00 Test Item Value Reference Range Interpretation Comments CALCIUM IONIZED (test code = FRANDY) 1.27 mmol/L 1.12-1.32 N CBC W/AUTO [id number] 02:54:00 Test Item Value Reference Range Interpretation [...] 0.00 K/mm3 0.0-0.1 N code = NRBC#) [id number] 02:41:00 Test Item Value Reference Range Interpretation Comments PHOSPHORUS (test code = PHOS) 3.0 mg/dL 2.5-4.9 N [id number] 02:41:00 Test Item Value Reference Range Interpretation Comments MAGNESIUM (test code = MAG) 1.7 mg/dL 1.8-2.4 L CALCIUM [id number] 02:41:00 Test Item Value Reference Range Interpretation Comments CALCIUM IONIZED (test code = FRANDY) mmol/L 1.12-1.32 [id number] 02:36:00 Test Item Value Reference Range Interpretation Comments PHOSPHORUS (test code = PHOS) mg/dL 2.5-4.9 [id number] 02:36:00 Test Item Value Reference Range Interpretation Comments MAGNESIUM (test code = MAG) 1.7 mg/dL 1.8-2.4 L CALCIUM [id number] 02:36:00 Test Item Value Reference Range Interpretation Comments CALCIUM IONIZED (test code = FRANDY) mmol/L 1.12-1.32 [id number] 02:09:00 Test Item Value Reference Range Interpretation Comments GLUBED (test code = 112 mg/dL 74-106 H Performe d by certified GLUBED) [facility] [id number] 00:38:00 Test Item Value Reference Range Interpretation Comments GLUBED (test code = 86 mg/dL 74-106 N Performe d by certified GLUBED) [facility] operator at [facility] [id number] 23:08:00 Test Item Value Reference Range Interpretation Comments GLUBED (test code = 89 mg/dL 74-106 N Performe d by certified GLUBED) [facility] [id number] 22:11:00 Test Item Value Reference Range Interpretation Comments GLUBED (test code = 96 mg/dL 74-106 N Performe d by certified GLUBED) [facility] [id number] 21:11:00 Test Item Value Reference Range Interpretation Comments GLUBED (test code = 110 mg/dL 74-106 H Performe d by certified GLUBED) [facility] operator [facility] [id number] 19:54:00 Test Item Value Reference Range Interpretation Comments GLUBED (test code = 116 mg/dL 74-106 H Performe d by certified GLUBED) [facility] [id number] 18:30:00 Test Item Value Reference Range Interpretation Comments GLUBED (test code = 136 mg/dL 74-106 H Performe d by certified GLUBED) [facility] operator [facility] [id number] 17:03:00 Test Item Value Reference Range Interpretation Comments GLUBED (test code = 165 mg/dL 74-106 H Performe d by certified GLUBED) [facility] operator at [facility] [id number] 17:03:00 Test Item Value Reference Range Interpretation Comments GLUBED (test code = 181 mg/dL 74-106 H Performe d by certified GLUBED) [facility] operator at [facility] [id number] 15:38:00 Test Item Value Reference Range Interpretation Comments GLYCOSYLATED HEMOGLOBIN 9.8 % HbA1 MICHAEL OVIEDO DIAGNOSIS: (HA1C) (test code = HbA1C GLYHGB) (%) ----- ----- Diab etic >6.4Prediabetes 5.7 - 6.4Normal <5.7 ESTIMATED AVERAGE 235 MG/DL GLUCOSE (test code = EAG) T4 [id number] 15:38:00 Test Item Value Reference Range Interpretation Comments T4 FREE (test code = T4F) 1.08 ng/dL 0.76-1.46 N THYROID STIMULATING [id number] 15:38:00 Test Item Value Reference Range Interpretation Comments THYROID STIMULATING 0.302 uIU/mL 0.36-3.74 L TSH REFE RENCE HORMONE (test code = RANGES: EUTHYROID: TSH) 0.35 - 4.3 mIU/mL HYPO : > 5.5 mIU/mL HYPER : < 0.35 mIU/mL BASIC METABOLIC [id number] 15:13:00 Test Item Value Reference Range Interpretation [...] GFR) formula.Chronic kidney disease is defined as [facility] kidney damageor GFR <60 mL/min/1.73 m2 for >3 months. CREATININE (test code 0.90 mg/dL 0.7-1.3 N = CREAT) BUN/CREATININE RATIO 24.4 10-20 H (test code = BUN/CREA) CALCIUM (test code = 7.2 mg/dL 8.5-10.1 L CA) [id number] 14:25:00 Test Item Value Reference Range Interpretation Comments GLUBED (test code = 202 mg/dL 74-106 H Performe d by certified GLUBED) [facility] operator at [facility] [id number] 13:01:00 Test Item Value Reference Range Interpretation Comments GLUBED (test code = 299 mg/dL 74-106 H Performe d by certified GLUBED) [facility] operator at [facility] CBC W/AUTO [id number] 12:40:00 Test Item Value Reference Range Interpretation [...] REQUIRED (test code YES = MDIFF) WBC [id number] 12:40:00 Test Item Value Reference Range Interpretation [...] 0 % 0-0 N IMMAT) CBC W/AUTO [id number] 12:39:00 Test Item Value Reference Range Interpretation [...] REQUIRED (test code YES = MDIFF) WBC [id number] 12:39:00 Test Item Value Reference Range Interpretation [...] MORPHOLOGY (test code = PLTMORPH) CBC W/AUTO [id number] 12:39:00 Test Item Value Reference Range Interpretation [...] REQUIRED (test code YES = MDIFF) WBC [id number] 12:39:00 Test Item Value Reference Range Interpretation [...] MORPHOLOGY (test code = PLTMORPH) CBC W/AUTO [id number] 12:39:00 Test Item Value Reference Range Interpretation [...] REQUIRED (test code YES = MDIFF) WBC [id number] 12:39:00 Test Item Value Reference Range Interpretation [...] MORPHOLOGY (test code = PLTMORPH) CBC W/AUTO [id number] 12:39:00 Test Item Value Reference Range Interpretation [...] REQUIRED (test code YES = MDIFF) WBC [id number] 12:39:00 Test Item Value Reference Range Interpretation Comments STAIN ACCEPTABILITY (test code = STN ACCEPTABLE) TOTAL CELLS COUNTED (test code = TCC) #CELLS SEGMENTED NEUTROPHILS (test code = % 39-69 SEG) LYMPHOCYTE (test code = LYMPH) % 25-55 MONOCYTE (test code = MON) % 0-10 MORPHOLOGY COMMENT (test code = MOC) PLATELET ESTIMATE (test code = PLTEST) PLATELET MORPHOLOGY (test code = PLTMORPH) [id number] 12:33:00 Test Item Value Reference Range Interpretation Comments GLUBED (test code = 392 mg/dL 74-106 H Performe d by certified GLUBED) [facility] at [facility] CBC W/AUTO [id number] 12:27:00 Test Item Value Reference Range Interpretation [...] (test code YES = MDIFF) ARTERIAL BLOOD [id number] 12:15:00 Test Item Value Reference Range Interpretation Comments ARTERIAL BLOOD GAS PH 7.27 7.35-7.45 L (test code = PHA) ARTERIAL BLOOD GAS PCO2 19.4 mm Hg 35-45 LL Resu lts called (test code = PCO2A) to and r ead back by [facility] 06/24/2020; by [facility] ARTERIAL BLOOD GAS PO2 107.4 mmHg 80-100 H (test code = PO2A) BICARBONATE TOTAL HCO3 8.6 mmol/L 23.0-27.0 LL Resul ts called (test code = HCO3) to and re ad back by [facility] 06/24/2020; by [facility] BASE EXCESS (test code = -16.5 mmol/L -3.0-5.0 LL Res ults called LUKE) to and read back by [facility] 06/24/2020; by [facility] ABG O2 SATURATION (test 97.3 % 90.0-98.0 [...] = HOHGBT) to and read back by [facility] - 06/24/2020; by [facility] METHEMOGLOBIN (test code 0.4 % 0.0-1.50 N = METHGB) O2 CONTENT (test code = 13.0 % vol 18.0-22.0 L O2CT) PaO2/[id number] 12:15:00 Test Item Value Reference Range Interpretation Comments PaO2/FiO2 (test code = UNP0EMF6) mm/Hg ARTERIAL BLOOD [id number] 12:15:00 Test Item Value Reference Range Interpretation Comments ARTERIAL BLOOD GAS PH 7.27 7.35-7.45 L (test code = PHA) ARTERIAL BLOOD GAS PCO2 19.4 mm Hg 35-45 LL Resu lts called (test code = PCO2A) to and r ead back by [facility] 06/24/2020; by [facility] ARTERIAL BLOOD GAS PO2 107.4 mmHg 80-100 H (test code = PO2A) BICARBONATE TOTAL HCO3 8.6 mmol/L 23.0-27.0 LL Resul ts called (test code = HCO3) to and re ad back by [facility] 06/24/2020; by [facility] BASE EXCESS (test code = -16.5 mmol/L -3.0-5.0 LL Res ults called LUKE) to and read back by [facility] 06/24/2020; by [facility] ABG O2 SATURATION (test 97.3 % 90.0-98.0 [...] = 13.0 % vol 18.0-22.0 L O2CT) PaO2/[id number] 12:15:00 Test Item Value Reference Range Interpretation Comments PaO2/FiO2 (test code = STL2YYD3) 511.40 mm/Hg LACTIC [id number] 12:05:00 Test Item Value Reference Range Interpretation Comments LACTIC ACID (test code = LACT) 1.4 mmol/L 0.4-1.9 N BASIC METABOLIC [id number] 11:24:00 Test Item Value Reference Range Interpretation [...] mg/dL 74-106 HH Results called to GLU) [id number] by JONATHON HUNTER 06/24/20 1124Critical re sults [...] 8.1 mg/dL 8.5-10.1 L CA) BASIC METABOLIC [id number] 11:06:00 Test Item Value Reference Range Interpretation [...] 8.3 mg/dL 8.5-10.1 L CA) BASIC METABOLIC [id number] 11:06:00 Test Item Value Reference Range Interpretation [...] COMMENTS: Q4H while on insulin dripBASIC METABOLIC [id number] 11:06:00 Test Item Value Reference Range Interpretation [...] CALCIUM (test code = CA) mg/dL 8.5-10.1 [id number] 09:51:00 Test Item Value Reference Range Interpretation Comments GLUBED (test code = 463 mg/dL 74-106 H Performe d by certified GLUBED) [facility] [id number] 09:44:00 Test Item Value Reference Range Interpretation Comments LIPASE (test code = LIP) 27 U/L 73.0-393.0 L BASIC METABOLIC [id number] 09:29:00 Test Item Value Reference Range Interpretation [...] insulin dripSPECIMEN COMMENTS: Q8H while on insulin [id number] 09:29:00 Test Item Value Reference Range Interpretation [...] result is a direct measurement.=== ====== LACTIC [id number] 08:53:00 Test Item Value Reference Range Interpretation Comments LACTIC ACID (test 2.2 mmol/L 0.4-1.9 HH Results ca lled to code = LACT) [id number] by JONATHON HUNTER 06/24/20 [id number] itical results verifie d and read back by Nu rse? Y BASIC METABOLIC [id number] 08:49:00 Test Item Value Reference Range Interpretation [...] insulin dripSPECIMEN COMMENTS: Q8H while on insulin [id number] 08:49:00 Test Item Value Reference Range Interpretation Comments MAGNESIUM (test code = MAG) mg/dL 1.8-2.4 SPECIMEN COMMENTS: Q4H while on insulin dripSPECIMEN COMMENTS: Q8H while on insulin [id number] 08:36:00 Test Item Value Reference Range Interpretation Comments GLUBED (test code = > 500 mg/dL 74-106 HH Performe d by certified GLUBED) [facility] at [facility] - XR CHEST 1 [id number] 07:50:00 [facility] 1995 Sex: M FAX: Madhuri Rubalcava MD [phone] [place]: [address] St: ADM Name: ELVIS FOX [facility] : 1995 Age/S: 25/M [address] [facility] Unit #: [id number] Loc: [place] [address] Phys: Madhuri Edmonds MD Acct: [id number] Dis Date: Status: ADM IN PHONE #: [phone] Exam Date: 06/23/2020 0750 FAX #: [phone] Reason: Leukocytosis EXAMS: CPT CODE: [id number] XR CHEST 1V 58675 EXAM: Chest X-ray, 1 view; CLINICAL HISTORY: DKA, leukocytosis; FINDINGS: The lungs are clear, no infiltrates, no edema; no effusions; no pneumothorax; normal cardiomediastinal silhouette. IMPRESSION: Normal chest x-ray. Location code: [facility] at 0750 Reported and signed by: Davis Toure M.D. CC: Madhuri Edmonds MD Technologist: FERMIN MENDEZ RT(R) Trnscrd Date/Time/By: 06/24/2020 (075) : By: SalomeW Blaze Print D/T: S: 06/24/2020 (0753) PAGE 1 Signed Report- XR CHEST 1 [id number] 07:50:00 [facility] 1995 Sex: M FAX: Madhuri Rubalcava MD [phone] [place]: [address] St: DIS Name: ELVIS FOX [facility] : 1995 Age/S: 25/M [address] [facility] Unit #: [id number] Loc: [address] [place] [address] Phys: Madhuri Edmonds MD Acct: [id number] Dis Date: [id number] Status: DIS IN PHONE #: [phone] Exam Date: 06/23/20207 FAX #: [phone] Reason: Leukocytosis EXAMS: CPT CODE: [id number] XR CHEST 1V 69916 EXAM: Chest X-ray, 1 view; CLINICAL HISTORY: DKA, leukocytosis; FINDINGS: The lungs are clear, no infiltrates, no edema; no effusions; no pneumothorax; normal cardiomediastinal silhouette. IMPRESSION: Normal chest x-ray. Location code: [facility] at 0750 Reported and signed by: Davis Toure M.D. CC: Madhuri Edmonds MD Technologist: FERMIN MENDEZ RT(R) Trnscrd Date/Time/By: 06/24/2020 (075) : By: TavonGRW Orig Print D/T: S: 06/24/2020 (0753) PAGE 1 Signed ReportBASIC METABOLIC [id number] 06:43:00 Test Item Value Reference Range Interpretation [...] code = 8.4 mg/dL 8.5-10.1 L CA) [id number] 06:43:00 Test Item Value Reference Range Interpretation Comments PHOSPHORUS (test code = PHOS) 4.2 mg/dL 2.5-4.9 N [id number] 06:43:00 Test Item Value Reference Range Interpretation Comments MAGNESIUM (test code = MAG) 1.9 mg/dL 1.8-2.4 N CALCIUM [id number] 06:43:00 Test Item Value Reference Range Interpretation Comments CALCIUM IONIZED (test code = FRANDY) 1.28 mmol/L 1.12-1.32 N CBC W/MANUAL [id number] 06:36:00 Test Item Value Reference Range Interpretation [...] code = 0 % 0-0 N IMMAT) [id number] 06:10:00 Test Item Value Reference Range Interpretation Comments GLYCOSYLATED HEMOGLOBIN 9.9 % HbA1 MICHAEL OVIEDO DIAGNOSIS: (HA1C) (test code = HbA1C GLYHGB) (%) ----- ----- Diab etic >6.4Prediabetes 5.7 - 6.4Normal <5.7 ESTIMATED AVERAGE 237 MG/DL GLUCOSE (test code = EAG) BASIC METABOLIC [id number] 06:00:00 Test Item Value Reference Range Interpretation [...] CALCIUM (test code = CA) mg/dL 8.5-10.1 [id number] 06:00:00 Test Item Value Reference Range Interpretation Comments PHOSPHORUS (test code = PHOS) mg/dL 2.5-4.9 [id number] 06:00:00 Test Item Value Reference Range Interpretation Comments MAGNESIUM (test code = MAG) mg/dL 1.8-2.4 CALCIUM [id number] 06:00:00 Test Item Value Reference Range Interpretation Comments CALCIUM IONIZED (test code = FRANDY) 1.28 mmol/L 1.12-1.32 N BASIC METABOLIC [id number] 05:51:00 Test Item Value Reference Range Interpretation [...] CALCIUM (test code = CA) mg/dL 8.5-10.1 [id number] 05:51:00 Test Item Value Reference Range Interpretation Comments PHOSPHORUS (test code = PHOS) mg/dL 2.5-4.9 [id number] 05:51:00 Test Item Value Reference Range Interpretation Comments MAGNESIUM (test code = MAG) mg/dL 1.8-2.4 CALCIUM [id number] 05:51:00 Test Item Value Reference Range Interpretation Comments CALCIUM IONIZED (test code = FRANDY) 1.28 mmol/L 1.12-1.32 N CBC W/MANUAL [id number] 05:06:00 Test Item Value Reference Range Interpretation [...] MORPHOLOGY (test code = PLTMORPH) CBC W/MANUAL [id number] 05:06:00 Test Item Value Reference Range Interpretation [...] MORPHOLOGY (test code = PLTMORPH) CBC W/MANUAL [id number] 05:06:00 Test Item Value Reference Range Interpretation [...] MORPHOLOGY (test code = PLTMORPH) CBC W/MANUAL [id number] 05:06:00 Test Item Value Reference Range Interpretation [...] MORPHOLOGY (test code = PLTMORPH) CBC W/MANUAL [id number] 05:06:00 Test Item Value Reference Range Interpretation [...] MORPHOLOGY (test code = PLTMORPH) BASIC METABOLIC [id number] 00:20:00 Test Item Value Reference Range Interpretation [...] 7.8 mg/dL 8.5-10.1 L CA) BASIC METABOLIC [id number] 21:30:00 Test Item Value Reference Range Interpretation [...] COMMENTS: Q4H while on insulin dripBASIC METABOLIC [id number] 21:26:00 Test Item Value Reference Range Interpretation [...] COMMENTS: Q4H while on insulin dripBASIC METABOLIC [id number] 18:17:00 Test Item Value Reference Range Interpretation [...] GLOMERULAR FILTRATION > 60 mL/min >=60 Estima oly GFR by RATE (test code = using Arash fied MDRD GFR) formula.Chronic kidney disease is defined as [facility] kidney damageor GFR <60 mL/min/1.73 m2 for >3 months. CREATININE (test code 0.80 mg/dL 0.7-1.3 N = CREAT) BUN/CREATININE RATIO 28.0 10-20 H (test code = BUN/CREA) CALCIUM (test code = 8.8 mg/dL 8.5-10.1 N CA) SPECIMEN COMMENTS: Q4H while on insulin [id number] 17:38:00 Test Item Value Reference Range Interpretation Comments GLUBED (test code = 151 mg/dL 74-106 H Performe d by certified GLUBED) [facility] BASIC METABOLIC [id number] 17:02:00 Test Item Value Reference Range Interpretation [...] GFR) formula.Chronic kidney disease is defined as [facility] kidney damageor GFR <60 mL/min/1.73 m2 for >3 months. CREATININE (test code 0.90 mg/dL 0.7-1.3 N = CREAT) BUN/CREATININE RATIO 27.2 10-20 H (test code = BUN/CREA) CALCIUM (test code = 9.2 mg/dL 8.5-10.1 N CA) [id number] 17:02:00 Test Item Value Reference Range Interpretation Comments PHOSPHORUS (test code = PHOS) 3.6 mg/dL 2.5-4.9 N [id number] 17:02:00 Test Item Value Reference Range Interpretation Comments MAGNESIUM (test code = MAG) 2.3 mg/dL 1.8-2.4 N THYROID STIMULATING [id number] 17:02:00 Test Item Value Reference Range Interpretation Comments THYROID STIMULATING 0.313 uIU/mL 0.36-3.74 L TSH REFE RENCE HORMONE (test code = RANGES: EUTHYROID: TSH) 0.35 - 4.3 mIU/mL HYPO : > 5.5 mIU/mL HYPER : < 0.35 mIU/mL BASIC METABOLIC [id number] 16:49:00 Test Item Value Reference Range Interpretation Comments SODIUM (test code = NA) 147 mmol/L 136-145 H POTASSIUM (test code = K) 3.3 mmol/L 3.5-5.1 L CHLORIDE (test code = CL) 106.0 mmol/L 98-107 N CARBON DIOXIDE (test code = CO2) mmol/L 21-32 ANION GAP (test code = GAP) -20 GLUCOSE (test code = GLU) mg/dL 74-106 BLOOD UREA NITROGEN (test code = mg/dL 7-18 BUN) GLOMERULAR FILTRATION RATE (test mL/min >=60 code = GFR) CREATININE (test code = CREAT) mg/dL 0.7-1.3 BUN/CREATININE RATIO (test code 10-20 = BUN/CREA) CALCIUM (test code = CA) mg/dL 8.5-10.1 [id number] 16:49:00 Test Item Value Reference Range Interpretation Comments PHOSPHORUS (test code = PHOS) mg/dL 2.5-4.9 [id number] 16:49:00 Test Item Value Reference Range Interpretation Comments MAGNESIUM (test code = MAG) mg/dL 1.8-2.4 THYROID STIMULATING [id number] 16:49:00 Test Item Value Reference Range Interpretation Comments THYROID STIMULATING HORMONE (test uIU/mL 0.36-3.74 code = TSH) [id number] 16:32:00 Test Item Value Reference Range Interpretation Comments GLUBED (test code = 224 mg/dL 74-106 H Performe d by certified GLUBED) linderman operator at [facility] [id number] 14:48:00 Test Item Value Reference Range Interpretation Comments GLUBED (test code = 391 mg/dL 74-106 H Performe d by certified GLUBED) linderman operator at [facility] BASIC METABOLIC [id number] 14:00:00 Test Item Value Reference Range Interpretation [...] mg/dL 74-106 HH Results called to GLU) [id number] by JONATHON EATON 06/23/20 1400Critical re sults verified and re ad back by Nurse? Y BLOOD UREA NITROGEN 30 mg/dL 7-18 H (test code = BUN) GLOMERULAR FILTRATION > 60 mL/min >=60 Estima loy GFR by RATE (test code = using Arash fied MDRD GFR) formula.Chronic kidney disease is defined as [facility] kidney damageor GFR <60 mL/min/1.73 m2 for >3 months. CREATININE (test code 1.30 mg/dL 0.7-1.3 N = CREAT) BUN/CREATININE RATIO 23.8 10-20 H (test code = BUN/CREA) CALCIUM (test code = 9.9 mg/dL 8.5-10.1 N CA) SPECIMEN COMMENTS: Q4H while on insulin dripBASIC METABOLIC [id number] 13:26:00 Test Item Value Reference Range Interpretation [...] SPECIMEN COMMENTS: Q4H while on insulin dripURINALYSIS [id number] 11:53:00 Test Item Value Reference Range Interpretation [...] NONE BACU) Urine Source? Clean CatchBASIC METABOLIC [id number] 11:34:00 Test Item Value Reference Range Interpretation [...] mg/dL 74-106 HH Results called to GLU) [id number] by JONATHON EATON 06/23/20 1134Critical re sults [...] insulin dripSPECIMEN COMMENTS: Q8H while on insulin [id number] 11:34:00 Test Item Value Reference Range Interpretation Comments MAGNESIUM (test code = MAG) 2.3 mg/dL 1.8-2.4 N SPECIMEN COMMENTS: Q4H while on insulin dripSPECIMEN COMMENTS: Q8H while on insulin drip- CT ABD PELVIS W/O [id number] 11:12:00 [facility])Name: ELVIS FOX : 1995 Sex: M Name: ELVIS FOX [facility] : 1995 Age/S: 25 / M [address] [facility] Unit #: [id number] Loc: [place] Cast[place] [address] Phys: Luis F Knight Acct: [id number] Dis Date: Status: ADM IN PHONE #: [phone] Exam Date: 06/23/2020925 FAX #: [phone] Reason: infection EXAMS: CPT CODE: [id number] CT ABD PELVIS W/O CONT 66944 REASON FOR EXAM: infection EXAM ORDER DATE: [...] 1 Signed Report (CONTINUED) Name: ELVIS FOX [facility] : 1995 Age/S: 25 / M [facility] Unit #: [id number] Loc: [place] [address] Phys: Luis F Knight Acct: [id number] Dis Date: Status: ADM IN PHONE #: [phone] Exam Date: 06/23/2020925 FAX #: [phone] Reason: infection EXAMS: CPT CODE: [id number] CT ABD PELVIS W/O CONT 43572 <Continued> scan of the abdomen and pelvis. Location: [facility] at 1112 Reported and signed by: Celso Welch MD CC: Priyanka Knight; Mikel Zamorano MD Technologist:Olayinka Barros RT(R),(MR),(CT); CTDI: DLP: Trnscb Date/Time: 06/23/2020 (1112) t.SDR.RR31 Orig Print D/T: S: 06/23/2020 (1115) PAGE2 Signed Report- CT ABD PELVIS W/O [id number] 11:12:00 [facility]Name: ELVIS FOX : 1995 Sex: M Name: ELVIS FOX [facility] : 1995 Age/S: 25 / M [address] [facility] Unit #: [id number] Loc: [place] [address] Phys: Luis F Knight Acct: [id number] Dis Date: 06/26/2020 Status: DIS IN PHONE #: [phone] Exam Date: 06/23/2020925 FAX #: [phone] Reason: infection EXAMS: CPT CODE: [id number] CT ABD PELVIS W/O CONT 13007 REASON FOR EXAM: infection EXAM ORDER DATE: [...] 1 Signed Report (CONTINUED) Name: ELVIS FOX [facility] : 1995 Age/S: 25 / M [address] [facility] Unit #: [id number] Loc: MAR[place] Cast[place] [address] Phys: Luis F Knight Acct: [id number] Dis Date: 06/26/2020 Status: DIS IN PHONE #: [phone] Exam Date: 06/23/2020925 FAX #: [phone] Reason: infection EXAMS: CPT CODE: [id number] CT ABD PELVIS W/O CONT 03803 <Continued> scan of the abdomen and pelvis. Location: [facility] at 1112 Reported and signed by: Celso Welch MD CC: Priyanka Knight; Mikel Zamorano MD Technologist:Olayinka Barros RT(R),(MR),(CT); CTDI: DLP: Trnscb Date/Time: 06/23/2020 (1112) t.SDR.RR31 Orig Print D/T: S: 06/23/2020 (1115) PAGE2 Signed ReportBASIC METABOLIC [id number] 10:47:00 Test Item Value Reference Range Interpretation [...] insulin dripSPECIMEN COMMENTS: Q8H while on insulin [id number] 10:47:00 Test Item Value Reference Range Interpretation Comments MAGNESIUM (test code = MAG) mg/dL 1.8-2.4 SPECIMEN COMMENTS: Q4H while on insulin dripSPECIMEN COMMENTS: Q8H while on insulin [id number] 09:13:00 Test Item Value Reference Range Interpretation Comments GLUBED (test code = > 500 mg/dL 74-106 HH Performe d by certified GLUBED) linderman operator at [facility] VENOUS BLOOD [id number] 07:49:00 Test Item Value Reference Range Interpretation Comments VENOUS BLOOD GAS PH (test 7.20 7.30-7.40 L Re sults called code = PHV) to and read arminda k by chrystal 07:4 - 06/23/2020; b y JLP VENOUS BLOOD GAS PCO2 45.8 mm Hg 39.0-51.0 N (test code = PCO2V) VENOUS BLOOD GAS PO2 < 43.5 mm Hg 30.0-50.0 N (test code = PO2V) VBG HCO3 (test code = 17.6 mmol/L 17.0-30.0 N HCO3V) VBG BASE EXCESS (test -10.0 mmol/L -5.0-5.0 LL Result s called code = SUNITA) to and read arminda k by chrystal 07:4 - 06/23/2020; b y JLP VENOUS [...] HOHGBT) to and read b ack by chrystal 07:4 - 06/23/2020; b y JLP METHEMOGLOBIN (test code 1.8 % 0.0-1.50 HH Res ults called = METHGB) to and read arminda k by chrystal 07:4 06/23/2020; b y JLP BASIC METABOLIC [id number] 06:39:00 Test Item Value Reference Range Interpretation [...] mg/dL 74-106 HH Results called to GLU) [id number] [address] [facility] [id number] 06/23/20 0632Critical re sults verified and [...] 9.4 mg/dL 8.5-10.1 N CA) HEPATIC FUNCTION [id number] 06:39:00 Test Item Value Reference Range Interpretation [...] range due ALKP) to change in reagent. [id number] 06:39:00 Test Item Value Reference Range Interpretation Comments LIPASE (test code = LIP) 52 U/L 73.0-393.0 L CBC W/O [id number] 06:20:00 Test Item Value Reference Range Interpretation [...] fL 6.7-11.0 N = MPV) BASIC METABOLIC [id number] 06:19:00 Test Item Value Reference Range Interpretation [...] code = CA) mg/dL 8.5-10.1 HEPATIC FUNCTION [id number] 06:19:00 Test Item Value Reference Range Interpretation [...] TOTAL (test IUnit/L 45-117 code = ALKP) [id number] 06:19:00 Test Item Value Reference Range Interpretation Comments LIPASE (test code = LIP) U/L 73.0-393.0 COMPREHENSIVE DRUG [id number] 10:23:00 Test Item Value Reference Range Interpretation Comments DRUG TOXICOLOGY (test code = SENT TO REF LAB DRUG) [id number] 10:23:00 Test Item Value Reference Range Interpretation Comments ALCOHOL (test code = ALC) <3 mg/dL 0-3 N [id number] 07:45:00 Test Item Value Reference Range Interpretation Comments GLUBED (test code = 127 mg/dL 70-105 H Performe d by certified GLUBED) linderman operator at [facility] [id number] 07:45:00 Test Item Value Reference Range Interpretation Comments GLUBED (test code = <40 mg/dL 70-105 L Performe d by certified GLUBED) linderman operator at [facility] DRUGS OF ABUSE [id number] 23:36:00 Test Item Value Reference Range Interpretation Comments UR COCAINE (test code NEGATIVE ng/ml NEGATIVE = COCAU) UR CANNABINOIDS (test POSITIVE ng/ml NEGATIVE A VALU E EXCEEDS code = CANU) CRITICAL LEVEL. CRITICAL VALUE CALLEDTO AND CRITICAL VALUE READ BACK BY VAMSI WEBER RN 1196 05/19/20. Levar Francois. POSITIVE URINE DRUG SCREEN [...] CRITICAL VALUE READ BACK BY HARRY Sullivan 3934 05/19/20. Levar Francois. POSITIVE URINE DRUG SCREEN JACINTO T RESULTS ARE UNCONFIRMED.REF ERR ED CONFIRMATORY TESTING AVAILAB LE UPON PHYSICIANREQUES T. UR PHENCYCLIDINE NEGATIVE ng/ml NEGATIVE THE URINE SPECIMEN (PCP) (test code = WAS TESTE D AT [facility]) LISTED CUTOFFS DRUG CLASS INITIAL TEST LEVEL AMPHETAMI NATALY 1000 NG/MLBARBITURAT ES 200 NG/MLBENZODIAZE PIN ES 200 NG/MLCOCAINE METABOLITE 300 NG/MLMARIJUANA METABOLITE 5 0 NG/MLOPIATES 300 NG/MLPHENCYCLID INE 25 NG /ML [place]IF[place] YOHAN [place] AT 204005/19/20, THAT ANOTHERURINE IS NEEDED FOR UDS BECAUSE CANNOT BE ADDED ON. H.LAB.[id number] 21:44:00 Test Item Value Reference Range Interpretation Comments GLUBED (test code = 146 mg/dL 70-105 H Performe d by certified GLUBED) linderman operator at [facility] [id number] 16:00:00 Test Item Value Reference Range Interpretation Comments GLUBED (test code = 203 mg/dL 70-105 H Performe d by certified GLUBED) linderman operator at [facility] Coronavirus 2019 nCoV [id number] 14:57:00 Test Item Value Reference Interpretation Comments Range Coronavirus 2019 Presumed Negative ID nCoV Bedside Negative NOW COVID-19 (test code = [id number]) -Negative results should be treated as presumptive and, ifinconsistent with clinical signs and symptoms or nec essaryfor patient managem ent, should be teste d with an alternativemole cular assay. Negative results do not preclude NGJB-EwP-3ogitq tion and should not be u sed as the sole basis forp atient management deci sions. Negative result s should beconsidered in the context of a pa tient's recent exposure s,history, presence of cli nical signs and sympt oms consistentwith COVID-19.The ID NOW COVID-19 test i s only for use under the F ood andDrug Adminis tration's Emergency Use Authorization. [id number] 14:13:00 Test Item Value Reference Range Interpretation Comments GPGTW09Hlfypvsc Negative Negative Note: this e ntry is for (test code = TRACKING purpos es only [id number]) and the jacinto twas done outside [facility], the perfroming entitiy isfound in spec imen comments. The test was performed at: [facility]: 05/19/20Patient's account number from transferring facility: 0000The patient's current lab results are: [id number] 13:04:00 Test Item Value Reference Range Interpretation Comments GLYCOSYLATED 10.3 % <5.7 H PACE GGESTED HEMOGLOBIN (HA1C) DIAGNOSIS (test code = GLYHGB) INTERPR ETATION -------- Normal: < 5.7% Prediabetes: 5 .7 - 6.4% Diabetic: >/ = 6.5%* DUE TO METHOD R EVISION, REFERENCE RANGE HAS BEEN UPDATED * ESTIMATED AVERAGE 249 MG/DL <126 GLUCOSE (test code = EAG) COMPREHENSIVE DRUG [id number] 13:03:00 Test Item Value Reference Range Interpretation Comments DRUG TOXICOLOGY (test code = DRUG) [id number] 13:03:00 Test Item Value Reference Range Interpretation Comments ALCOHOL (test code = ALC) <3 mg/dL 0-3 N [id number] 12:42:00 Test Item Value Reference Range Interpretation Comments GLUBED (test code = 92 mg/dL 70-105 N Performe d by certified GLUBED) linderman operator at [facility] [id number] 09:55:00 Test Item Value Reference Range Interpretation Comments GLUCOSE (test code = GLU) 42 mg/dL 70-100 L LO GLUCOMETERURINALYSIS W REFLEX [id number] 09:12:00 Test Item Value Reference Range Interpretation [...] = MUCU) FEW /hpf NEG,FEW BASIC METABOLIC [id number] 08:09:00 Test Item Value Reference Range Interpretation [...] code = 7.7 mg/dL 8.5-10.1 L CA) [id number] 08:09:00 Test Item Value Reference Range Interpretation Comments LIPASE (test code = LIP) 49 U/L 73-393 L [id number] 08:09:00 Test Item Value Reference Range Interpretation Comments TROPONIN-I (test <0.015 ng/ml 0.00-0.045 N GUIDELINES: 0.08 - 0.09 code = TROPI) Indeterminate0 .10 Risk Stratifica tion Limit: Suggest sequential te sting0.60 - 1.50 AMI cut off: Myocardial Inju ry by WHO criteria BETA [id number] 08:09:00 Test Item Value Reference Range Interpretation Comments BETA HYDROBUTYRATE (test code = 0.37 mmol/L 0.00-0.28 H BETHYD) BASIC METABOLIC [id number] 08:01:00 Test Item Value Reference Range Interpretation [...] code = 7.7 mg/dL 8.5-10.1 L CA) [id number] 08:01:00 Test Item Value Reference Range Interpretation Comments LIPASE (test code = LIP) 49 U/L 73-393 L [id number] 08:01:00 Test Item Value Reference Range Interpretation Comments TROPONIN-I (test <0.015 ng/ml 0.00-0.045 N GUIDELINES: 0.08 - 0.09 code = TROPI) Indeterminate0 .10 Risk Stratifica tion Limit: Suggest sequential te sting0.60 - 1.50 AMI cut off: Myocardial Inju ry by WHO criteria BETA [id number] 08:01:00 Test Item Value Reference Range Interpretation Comments BETA HYDROBUTYRATE (test code = mmol/L 0.00-0.28 BETHYD) BASIC METABOLIC [id number] 07:48:00 Test Item Value Reference Range Interpretation [...] code = CA) 7.7 mg/dL 8.5-10.1 L [id number] 07:48:00 Test Item Value Reference Range Interpretation Comments LIPASE (test code = LIP) U/L 73-393 [id number] 07:48:00 Test Item Value Reference Range Interpretation Comments TROPONIN-I (test code = TROPI) ng/ml 0.00-0.045 BETA [id number] 07:48:00 Test Item Value Reference Range Interpretation Comments BETA HYDROBUTYRATE (test code = mmol/L 0.00-0.28 BETHYD) BASIC METABOLIC [id number] 07:47:00 Test Item Value Reference Range Interpretation [...] CALCIUM (test code = CA) mg/dL 8.5-10.1 [id number] 07:47:00 Test Item Value Reference Range Interpretation Comments LIPASE (test code = LIP) U/L 73-393 [id number] 07:47:00 Test Item Value Reference Range Interpretation Comments TROPONIN-I (test code = TROPI) ng/ml 0.00-0.045 BETA [id number] 07:47:00 Test Item Value Reference Range Interpretation Comments BETA HYDROBUTYRATE (test code = mmol/L 0.00-0.28 BETHYD) LACTIC [id number] 07:39:00 Test Item Value Reference Range Interpretation Comments LACTIC ACID (test code = LACT) 1.1 mmol/l 0.4-2.0 N CBC W/AUTO [id number] 07:38:00 Test Item Value Reference Range Interpretation [...] code = 0.00 K/mm3 0.0-0.1 N NRBC#) [id number] 06:54:00 Test Item Value Reference Range Interpretation Comments GLUBED (test code = 183 mg/dL 70-105 H Performe d by certified GLUBED) linderman operator at [facility] [id number] 18:21:00 Test Item Value Reference Range Interpretation Comments GLUBED (test code = 239 mg/dL 74-106 H Performe d by certified GLUBED) linderman operator at [facility] [id number] 15:51:00 Test Item Value Reference Range Interpretation Comments GLUBED (test code = 277 mg/dL 74-106 H Performe d by certified GLUBED) linderman operator at [facility] BASIC METABOLIC [id number] 12:49:00 Test Item Value Reference Range Interpretation [...] MDRD formula.Chronic kidney disease is defined as [facility] kidney damageor GFR <60 mL/min/1.73 m2 for >3 months. CREATININE (test code 1.10 mg/dL 0.7-1.3 N = CREAT) BUN/CREATININE RATIO 13.6 10-20 N (test code = BUN/CREA) CALCIUM (test code = 8.8 mg/dL 8.5-10.1 N CA) HEPATIC FUNCTION [id number] 12:49:00 Test Item Value Reference Range Interpretation [...] range due ALKP) to change in reagent. [id number] 12:49:00 Test Item Value Reference Range Interpretation Comments LIPASE (test code = LIP) 47 U/L 73.0-393.0 L BETA [id number] 12:49:00 Test Item Value Reference Range Interpretation Comments BETA HYDROBUTYRATE (test code = 1.28 mmol/L 0.02-0.27 H BETHYD) BASIC METABOLIC [id number] 12:34:00 Test Item Value Reference Range Interpretation [...] 8.8 mg/dL 8.5-10.1 N CA) HEPATIC FUNCTION [id number] 12:34:00 Test Item Value Reference Range Interpretation [...] range due ALKP) to change in reagent. [id number] 12:34:00 Test Item Value Reference Range Interpretation Comments LIPASE (test code = LIP) 47 U/L 73.0-393.0 L BETA [id number] 12:34:00 Test Item Value Reference Range Interpretation Comments BETA HYDROBUTYRATE (test code = mmol/L 0.02-0.27 BETHYD) BASIC METABOLIC [id number] 12:23:00 Test Item Value Reference Range Interpretation [...] code = CA) mg/dL 8.5-10.1 HEPATIC FUNCTION [id number] 12:23:00 Test Item Value Reference Range Interpretation [...] TOTAL (test IUnit/L 45-117 code = ALKP) [id number] 12:23:00 Test Item Value Reference Range Interpretation Comments LIPASE (test code = LIP) U/L 73.0-393.0 BETA [id number] 12:23:00 Test Item Value Reference Range Interpretation Comments BETA HYDROBUTYRATE (test code = mmol/L 0.02-0.27 BETHYD) URINALYSIS [id number] 12:18:00 Test Item Value Reference Range Interpretation [...] NONE BACU) Urine Source? Clean CatchCBC W/O [id number] 12:10:00 Test Item Value Reference Range Interpretation [...] fL 6.7-11.0 N = MPV) CBC W/O [id number] 12:08:00 Test Item Value Reference Range Interpretation [...] code fL 6.7-11.0 = MPV) VENOUS BLOOD [id number] 11:56:00 Test Item Value Reference Range Interpretation [...] ack by Coveltat 11:56 - 09/06/2019; by [id number] METHEMOGLOBIN (test code 0.0 % 0.0-1.50 N = METHGB) [id number] 11:27:00 Test Item Value Reference Range Interpretation Comments GLUBED (test code = 330 mg/dL 74-106 H Performe d by certified GLUBED) linderman operator at [facility] - CT NECK W/[id number] 00:46:00 Name: FOXELVIS SIMMONS FSED : 1995 Age/S: 24 / M [address] [facility] [address] Unit #: [id number] Loc: [address] Phys: Maxime Kelly [place], [place] [address] Acct: [id number] Dis Date: Status: REG ER PHONE #: Exam Date: 06/28/2019 0035 FAX #: Reason: chin/neck infection EXAMS: CPTCODE: [id number] CT NECK W/CONTRAST 88156 Exam: CT neck with contrast. Location: H [...] subcutaneous tissues. The parotid space, carotid space, oracle sql developer space, prevertebral space and the fossa of [...] : 1995 Age/S: 24 / M [address] [facility] [address] Unit #: [id number] Loc: [address] Phys: Maxime Kelly [place], [place] [address] Acct: [id number] Dis Date: Status: REG ER PHONE #: Exam Date: 06/28/20195 FAX #: Reason: chin/neck infection EXAMS: CPT CODE: [id number] CT NECK W/CONTRAST 29124 <Continued> CC: Maxime Kelly Technologist:Martin Vidal CTDI: DLP: Trnscb Date/Time: 06/28/2019 (0046) TavonFC Orig Print D/T: S: 06/28/2019 (0050) PAGE 2 Signed Report- CT NECK W/[id number] 00:46:00 [facility] 1995 Sex: M Name: ELVIS FOX [facility] : 1995 Age/S: 24 / M [address] [facility] Unit #: [id number] Loc: [address] Phys: Maxime Kelly [place], [place] [address] Acct: [id number] Dis Date: Status: DEP ER PHONE #: Exam Date: 06/28/2019 0035 FAX #: Reason: chin/neck infection EXAMS: CPT CODE: [id number] CT NECK W/CONTRAST 99651 Exam: CT neck with contrast. Location: H [...] subcutaneous tissues. The parotid space, carotid space, oracle sql developer space, prevertebral space and the fossa of [...] : 1995 Age/S: 24 / M [address] [facility] Unit #: [id number] Loc: [address] Phys: Maxime Kelly DO [place], [place] [address] Acct: [id number] Dis Date: Status: DEP ER PHONE #: Exam Date: 06/28/2019 0035 FAX #: Reason: chin/neck infection EXAMS: CPT CODE: [id number] CT NECK W/CONTRAST [address]04[address] <Continued> CC: Maxime Kelly DO Technologist:Martin Vidal CTDI: DLP: Trnscb Date/Time: 06/28/2019 (004) tGENETFC Orig Print D/T: S: 06/28/2019 (0050) PAGE 2 Signed ReportBASIC METABOLIC [id number] 00:02:00 Test Item Value Reference Range Interpretation [...] MDRD formula.Chronic kidney disease is defined as ei er kidney damageor GFR <60 mL/min/1.73 m2 for >3 months. CREATININE (test code 0.76 mg/dL 0.55-1.3 N = CREAT) BUN/CREATININE RATIO 21.1 10-20 H (test code = BUN/CREA) CALCIUM (test code = 9.6 mg/dL 8.0-10.5 N CA) CBC W/AUTO [id number] 23:53:00 Test Item Value Reference Range Interpretation [...] DIFF REQUIRED (test code NO = MDIFF) GASTRIC,[id number] 13:00:00 RUN DATE: 04/26/18 [facility] PAGE 1 RUN TIME: 1300 Specimen Inquiry RUN USER: INTERFACE PATIENT: ELVIS FOX LOC: [place] U #: [id number] AGE/SX: 23/M ROOM: [facility] RE04/23/18[facility] DR: Mikel Zamorano MD : [birth year] BED: A DIS: STATUS: ADM IN TLOC: SPEC #: [id number] RECD: 04/25/18 STATUS: MAG FLOWER #: [id number] HILDA: 04/25/18 [facility] DR: Arnie Cristobal MD ENTERED: 04/25/18 SP TYPE: GASTRIC BX OTHR DR: Matt Ramirez MD, Daniel Haryanto MDORDERED: GROSS COPIES TO: Matt Ramirez MD [address] [place], [place] [id number] Arnie Cristobal MD [address], [address] [place], [place] [address] PROCEDURES: GROSS (04/26/18) TISSUES: 1. ANTRUM - [...] CONTINUED ON NEXT PAGE RUN DATE: 04/26/18 [facility] PAGE 2 RUN TIME: 1300 Specimen Inquiry RUN USER: INTERFACE SPEC #: [id number] PATIENT: ELVIS FOX #[id number] (Continued) FINAL DIAGNOSIS (Continued) RRB/ D [phone], [phone] MACROSCOPIC The first specimen is received in [...] cm, submitted as (2). GROSS PERFORMED AT [facility] [address] [place] [address] [phone] (p)[phone] MICROSCOPIC MICROSCOPIC PERFORMED AT [facility] All of the stains, including any controls performed, stain appropriately. [facility] [address] [place] [address] (p)[phone] PERFORMING SITE Diagnosis performed at: [facility] [address] [place], [place] [id number] Signed SIGNATURE ON FILE Dandy Valdez 04/26/18 1300 END OF REPORT DRUG [id number] 18:41:00Negative *NA*(05/19/17 12:41 PM)[facility] [id number] 18:41:00See Note (05/19/17 12:41 PM)[facility] [id number] 18:41:00Negative *NA*(05/19/17 12:41 PM)[facility] [id number] 18:41:00Negative *NA*(05/19/17 12:41 PM)[facility] [id number] 18:41:00Negative *NA*(05/19/17 12:41 PM)[facility] [id number] 18:41:00Positive *ABN*(05/19/17 12:41 PM)[facility] [id number] 18:41:00Positive *ABN*(05/19/17 12:41 PM)[facility] [id number] 18:41:00Negative *NA*(05/19/17 12:41 PM)[facility] [id number] 09:31:00<1[facility] [id number] 09:31:00Negative (05/19/17 3:31 AM)[facility] [id number] 09:31:003[facility] [id number] 09:31:00 Negative (05/19/17 3:31 AM)[facility] [id number] 09:31:00 Negative (05/19/17 3:31 AM)[facility] [id number] 09:31:00 Negative *NA*(05/19/17 3:31 AM)[facility] [id number] 09:31:001.044[facility] [id number] 09:31:005.0[facility] [id number] 09:31:00Clear (05/19/17 3:31 AM)[facility] XdapkvnQKKJXLUJLH0252-39-87 08:05:10231Tbuwkuuh CvxjvxsSCJBTWNXYY8546-71-24 08:05:007.0[facility] TqforkqQONUPVOAOZ5660-99-45 08:05:0013.4[facility] Bhavesh KLEDOYLNYC2265-40-42 08:05:009.8[facility] GqkwnbkVZLNETTJPQ4943-24-72 08:05:00 29.0[facility] PhxauegXOPUEWGVYG0242-77-47 08:05:0090.4[facility]annCHEM PANEL 2017-05-19 08:05:000.15[facility]annCHEM WKEIJ0859-59-11 08:05:15289Ssdxdrpe HermannCHEM CPZAM0106-38-33 08:05:93189Kjdnrkgs HermannCHEM JEURY8123-14-61 08:05:000.6[facility]annCHEM FAMAD3699-19-34 08:05:0063[facility]annCHEM SZAZI8395-81-24 08:05:0010[facility]annCHEM QMYKP8444-87-99 08:05:003.4 [facility]annCHE[facility] CBPHL8753-44-28 08:05:006.5[facility]annCHEM PANEL 2017-05-19 08:05:008.2[facility]annCHEM BOOXF1587-26-90 08:05:94453Fgifrrow HermannCHEM VCTHD2919-74-21 08:05:003.7[facility] HermannCHEM [id number] 08:05:000.48[facility] HermannCHEM [id number] 08:05:35835Cktaliom HermannCHEM UDUKF5389-73-30 08:05:0015[facility] HermannCHEM DHKSG0983-18-73 08:05:0024 [facility]annCHEM NXELJ0860-04-56 08:05:40751Ltfceuag HermannCHEM PANEL 2017-05-19 08:05:0012.7[facility] HermannCHEM BVUDZ4053-37-95 08:05:001.1[facility] HermannCHEM EVSPR9313-53-93 08:05:0031[facility] HermannCHEM KVWUY5629-81-61 08:05:003.1[facility] HermannCHEM MWFXP6514-56-03 08:05:67749Imgytusz Bhavesh PLGGFKUMOD0460-14-93 08:05:0079.4[facility] LxrdfqnOOJGQZGTVX2182-02-39 08:05:00 13.0[facility] TblkvfqYGAIXHFWGJ4239-05-30 08:05:000.7[facility] HermannHEMATOLOGY 2017-05-19 08:05:002.3[facility] TckeuctYMMGIWOENH3310-45-62 08:05:000.4[facility] QywmfevVJTPEIPZNG5813-40-44 08:05:0012.1[facility] BqczgnkJMNBWUULLC5297-55-96 08:05:002.0[facility] BtqefsnGBLCYKCMVD2719-52-11 08:05:004.9[facility] Bhavesh DQGSQRYKIK6388-93-17 08:05:000.3[facility] VzzltsePQTZBNPXUN4997-61-20 08:05:000.1 [facility] QvxrzutYKVPTDFDID4405-43-08 08:05:003.20[facility] HermannHEMATOLOGY 2017-05-19 08:05:0015.2[facility] MfjxgpqDNGWPSTUXQ0803-13-95 08:05:00 Test Item Value Reference Range Interpretation Comments MCH (test code = MCH) 30.7 pg 27.0-31.0 [facility] QyfvsmoFXKZAQQVTK5381-86-02 08:05:0033.9[facility] HermannGASTRIC EMPTYING [place] [address] Patient Name: ELVIS FOX MR #: [id number] : 1995 Age/Sex: 22/M Req #: [id number] Adm Physician: MATILDA KOHLER MD Ordered by: GIA SMITH MD Report #: [id number] Location: MED/SURG Room/Bed: [facility] Procedure: [id number] NM/GASTRIC EMPTYING Exam Date: 05/08/17 Exam Time: 0900 REPORT STATUS: Signed Solid-phase gastric emptying study Reason for examination: Chronic nausea and vomiting x1 year. The protocol used for this study is based on the Consensus Recommendations for Gastric Scintigraphy by the [place] [employer] and the Society [...] COPY TO: GIA SMITH MDUS ABDOMEN COMPLETE [place] [address] Patient Name: ELVIS FOX MR #: [id number] : 1995 Age/Sex: 22/M Req #: [id number] Adm Physician: MATILDA KOHLER MD Ordered by: GIA SMITH MD Report #: [id number] Location: MED/SURG Room/Bed: [facility] Procedure: [id number] US/US ABDOMEN COMPLETE Exam Date: 05/08/17 Exam [...] COPY TO: GIA SMITH MDCT ABDOMEN/PELVIS WO [place] [address] Patient Name: ELVIS FOX MR #: [id number] : 1995 Age/Sex: 22/M Req #: [id number] Adm Physician: Ordered by: HANK JADE MD Report #: [id number] Location: ER Room/Bed: Procedure: [id number] CT/CT ABDOMEN/PELVIS WO Exam Date: 05/05/17 Exam [...] at 16:24 Dictated By: SAURABH MCELROY MD [id number] Transcribed By: MAXIMILIANO on 05/05/17 COPY TO: HANK JADE MD
[2020-10-04] MEDS ORDERED: FENTANYL CITR 100 MCG/2 ML ONE (06:45)
--- NOTE | 2020-10-04 06:55 | EDPHYS ---
Physician Documentation [facility] Name: Eric Andrade Age: 25 yrs Sex: Male : 1995 Arrival Date: 10/04/2020 Time: 05:54 Bed 8 Private MD: ED Physician Kiki Forrest HPI: 10/04 06:32 This 25 yrs old Male presents to ER via EMS with complaints of Abdominal Pain, tw4 Nausea/Vomiting, High Blood Sugar. 06:32 The patient presents to the emergency department with nausea, vomiting, abdominal pain. tw4 Onset: The symptoms/episode began/occurred today. Possible causes: flare up of bowel problem, GASTROPARESIS. The symptoms are aggravated by nothing. The symptoms are alleviated by nothing. Associated signs and symptoms: Pertinent positives: abdominal pain. Severity of symptoms: At their worst the symptoms were moderate in the emergency department the symptoms are unchanged. The patient has experienced similar episodes in the past, chronically. Historical: - Allergies: 06:29 NKA; sg - PMHx: 06:29 Chronic Abdominal Pain; Diabetes - IDDM; sg - PSHx: 06:29 Cholecystectomy; sg - Immunization history:: Adult Immunizations up to date. - Social history:: Smoking status: Patient denies any tobacco usage or history of. ROS: 06:32 Constitutional: Negative for fever, chills, and weight loss, Cardiovascular: Negative tw4 for chest pain, palpitations, and edema, Respiratory: Negative for shortness of breath, cough, wheezing, and pleuritic chest pain, Back: Negative for injury and pain, MS/Extremity: Negative for injury and deformity, Skin: Negative for injury, rash, and discoloration, Neuro: Negative for headache, weakness, numbness, tingling, and seizure. 06:32 Abdomen/GI: Positive for abdominal pain. Exam: 06:32 Constitutional: This is a well developed, well nourished patient who is awake, alert, tw4 and in no acute distress. Head/Face: Normocephalic, atraumatic. Chest/axilla: Normal chest wall appearance and motion. Nontender with no deformity. No lesions are appreciated. Cardiovascular: Regular rate and rhythm with a normal S1 and S2. No gallops, murmurs, or rubs. Normal PMI, no JVD. No pulse deficits. Respiratory: Lungs have equal breath sounds bilaterally, clear to auscultation and percussion. No rales, rhonchi or wheezes noted. No increased work of breathing, no retractions or nasal flaring. Abdomen/GI: Soft, non-tender, with normal bowel sounds. No distension or tympany. No guarding or rebound. No evidence of tenderness throughout. MS/ Extremity: Pulses equal, no cyanosis. Neurovascular intact. Full, normal range of motion. Neuro: Awake and alert, GCS 15, oriented to person, place, time, and situation. Cranial nerves II-XII grossly intact. Motor strength 5/5 in all extremities. Sensory grossly intact. Cerebellar exam normal. Normal gait. Vital Signs: 06:32 BP 136 / 62; Pulse 135; Resp 20; Temp 97.5(TE); Pulse Ox 100% on R/A; Pain 10/10; lp1 08:52 Weight 51.26 kg (M); jl7 09:20 BP 114 / 72; Pulse 109; Resp 15; Pulse Ox 100% on R/A; jl7 10:00 BP 106 / 66; Pulse 115; Resp 14; Pulse Ox 100% ; jl7 MDM: 06:03 Patient medically screened. tw4 07:26 Differential diagnosis: Nonspecific abd pain, gastritis, pancreatitis, viral ma2 gastroenteritis, gastroenteritis. Data reviewed: vital signs, nurses notes. Counseling: I had a detailed discussion with the patient and/or guardian regarding: the historical points, exam findings, and any diagnostic results supporting the discharge/admit diagnosis, the presence of at least one elevated blood pressure reading (>120/80) during this emergency department visit, the need for outpatient follow up. Response to treatment: the patient's symptoms have markedly improved after treatment. 10/04 06:49 Order name: Basic Metabolic Panel; Complete Time: 07:26 tw4 10/04 06:49 Order name: CBC with Diff tw4 10/04 06:49 Order name: Hepatic Function; Complete Time: 07:26 tw4 10/04 06:49 Order name: Lipase; Complete Time: 07:26 tw4 10/04 08:37 Order name: Basic Metabolic Panel EDTN 10/04 08:37 Order name: Basic Metabolic Panel EDTN 10/04 08:37 Order name: Basic Metabolic Panel EDMS 10/04 08:37 Order name: Basic Metabolic Panel EDMS 10/04 08:37 Order name: CBC with Automated Diff EDMS 10/04 08:37 Order name: CBC with Automated Diff EDMS 10/04 08:37 Order name: CBC with Automated Diff EDMS 10/04 08:37 Order name: CBC with Automated Diff EDMS 10/04 08:37 Order name: Magnesium EDMS 10/04 08:37 Order name: Magnesium EDMS 10/04 08:37 Order name: Magnesium EDMS 10/04 08:37 Order name: Magnesium EDMS 10/04 08:37 Order name: Phosphorus EDMS 10/04 08:37 Order name: Phosphorus EDMS 10/04 08:37 Order name: Phosphorus EDMS 10/04 08:37 Order name: Phosphorus EDMS 10/04 08:59 Order name: ABG jl7 10/04 09:02 Order name: Glucose, Ancillary Testing EDMS 10/04 09:17 Order name: CBC Smear Scan EDMS 10/04 09:48 Order name: Glucose, Ancillary Testing EDMS 10/04 10:06 Order name: Lactate EDMS 10/04 10:13 Order name: Chest Single View XRAY jl7 10/04 10:22 Order name: ABG Arterial Blood Gas EDMS 10/04 11:06 Order name: Basic Metabolic Panel jl7 10/04 11:09 Order name: Glucose, Ancillary Testing EDMS 10/04 06:49 Order name: IV Saline Lock; Complete Time: 07:04 tw4 10/04 06:49 Order name: Labs collected and sent; Complete Time: 07:04 tw4 10/04 08:30 Order name: NG Tube; Complete Time: 10:14 ma2 10/04 08:37 Order name: NPO EDMS Administered Medications: 06:35 Drug: fentaNYL (PF) 50 mcg Route: IVP; Site: right antecubital; lp1 07:00 Follow up: Response: No adverse reaction; Pain is unchanged, physician notified jl7 07:23 Drug: Phenergan 25 mg Route: IVP; Site: right antecubital; jl7 07:50 Follow up: Response: No adverse reaction; Nausea unchanged jl7 07:24 Drug: NS 0.9% 1000 ml Route: IV; Rate: 1 bolus; Site: right antecubital; jl7 07:30 Follow up: IV Intake: 1000ml ; 1000 ml's from EMS jl7 08:30 Follow up: Response: No adverse reaction; IV Status: Completed infusion; IV Intake: 7 1000ml 07:40 Drug: Dilaudid (HYDROmorphone) 1 mg {Note: VO to administer in 100 mL NS over 1 hour.} 7 Route: IVP; Site: right antecubital; 08:10 Follow up: Response: No adverse reaction; Pain is unchanged, physician notified jl7 07:46 Drug: Insulin Regular Human 4 units {Co-Signature: bp (Jemal Calvin RN).} Route: IVP; [facility] Site: right antecubital; 08:45 Follow up: Response: Blood sugar is lowered 7 09:15 Drug: NS 0.9% 1000 ml Route: IV; Rate: 1 bolus; Site: left wrist; [facility] 10:07 Follow up: Response: No adverse reaction; IV Status: Completed infusion; Order to [facility] discontinue infusion; IV Intake: 200ml 10:00 Drug: Insulin Drip - (Insulin Regular Human 100 units, NS 0.9% 100 ml) {Co-Signature: [facility] bp (Jemal Calvin RN).} Route: IV; Rate: calculated rate; Site: left wrist; Disposition: 10/04/20 06:55 Hospitalization ordered by Luis Penny for Observation. Preliminary diagnosis are Gastroparesis, Cyclical vomiting, intractable, Other and unspecified noninfective gastroenteritis and colitis. - Bed requested for Telemetry/MedSurg (Inpatient). - Status is Observation. eb - Condition is Stable. - Problem is an ongoing problem. - Symptoms have worsened. Signatures: Dispatcher [employer] EDMS John Solomon, RN RN sg Ceci Leblanc, RN RN lp1 Jacquelyn Booth RN RN jl7 Kiki Forrest MD MD ma2 Camacho Lazar MD MD tw4 Sandra Jorgensen eb Jemal Calvin RN bp Corrections: (The following items were deleted from the chart) 06:55 06:55 Hospitalization Ordered by Luis Penny MD for Observation. Preliminary tw4 diagnosis is Gastroparesis; Cyclical vomiting, intractable. Bed requested for Telemetry/MedSurg (Inpatient). Status is Observation. Condition is Stable. Problem is an ongoing problem. Symptoms have worsened. tw4 08:17 06:53 Abdomen 1 View+RAD.RAD.BRZ ordered. EDMS EDMS 12:28 06:55 10/04/2020 06:55 Hospitalization Ordered by Luis Penny MD for Observation. eb Preliminary diagnosis is Gastroparesis; Cyclical vomiting, intractable; Other and unspecified noninfective gastroenteritis and colitis. Bed requested for Telemetry/MedSurg (Inpatient). Status is Observation. Condition is Stable. Problem is an ongoing problem. Symptoms have worsened. tw4
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
[2020-10-04 07:15] LABS: Absolute Lymphocytes (CBC) 0.5 K/uL (0.7-4.9); Basophils % 0.4 % (0-1.3); Hematocrit 34.9 % (39.6-49.0); Lymphocytes % 3.1 % (15.3-44.8); MPV 8.3 fL (7.6-11.3); RBC Red Blood Cell Count 3.79 M/uL (4.33-5.43)
[2020-10-04 07:25] LABS: Bilirubin Direct 0.3 mg/dL (0-0.2); Bilirubin Total 0.7 mg/dL (0.2-1.0); Potassium 4.1 mmol/L (3.5-5.1); Protein, Total 7.4 g/dL (6.4-8.2)
[2020-10-04] MEDS ORDERED: PROMETHAZINE INJ 25 MG/ML AMP ONE (07:31)
[2020-10-04] MEDS ORDERED: NA CHLORIDE 0.9% 1,000 ML ONE ×2 (07:32→09:23)
[2020-10-04] MEDS ORDERED: NA CHLORIDE 0.9% 100 ML ONE (07:43)
[2020-10-04] MEDS ORDERED: HYDROMORPHONE HCL 1 MG/ML INJ ONE (07:43)
[2020-10-04] MEDS ORDERED: INSULIN -REGULAR HUMAN 50 UNIT/0.5 ML ML ONE ×2 (07:59→11:17)
[2020-10-04] MEDS ORDERED: GLUCAGON 1 MG/VIAL IM PRN (08:20)
[2020-10-04] MEDS ORDERED: D50W 25 GM/50 ML VIAL IV PRN (08:23)
[2020-10-04] MEDS ORDERED: INSULIN -REGULAR HUMAN 100 UNIT in NA CHLORIDE 0.9% 100 ML IV SCH (08:30)
[2020-10-04] MEDS ORDERED: ONDANSETRON 4 MG/2 ML VIAL IV PRN (08:36)
[2020-10-04] MEDS ORDERED: HYDROMORPHONE HCL 2 MG/ML inj IV PRN (08:38)
[2020-10-04] MEDS ORDERED: LORazepam 2 MG/ML VIAL IV ONE (09:00)
[2020-10-04] MEDS ORDERED: D5.45NS W/KCL 20MEQ 1,000 ML IV SCH (09:00)
[2020-10-04] MEDS ORDERED: ENOXAPARIN 40 MG/0.4 ML SQ SCH (09:00)
[2020-10-04 09:17] LABS: Blood Morphology Comment NOT SEEN (NOT SEEN); Platelet Estimate ADEQ; White Blood Cell Scan OK (OK)
[2020-10-04] MEDS ORDERED: LORazepam 2 MG/ML VIAL ONE (09:22)
[2020-10-04] MEDS ORDERED: LIDOCAINE VISCOUS 2% SOLN 15 ML UDC ONE (09:23)
[2020-10-04] MEDS ORDERED: HYDROMORPHONE HCL 2 MG/ML inj ONE (09:23)
[2020-10-04 09:40] LABS: Arterial Blood Carboxyhemoglob 1.5 % (0-1.5); Blood Gas Oxyhemoglobin 93.9 % (94-97); Blood O2 Saturation 96.3 % (92-98.5)
--- NOTE | 2020-10-04 09:49 | P.HP ---
Certification for Inpatient Patient admitted to: Inpatient With expected LOS: >2 Midnights Practitioner: I am a practitioner with admitting privileges, knowledge of patient current condition, hospital course, and medical plan of care. Services: Services provided to patient in accordance with Admission requirements found in Title 42 Section 412.3 of the Code of Federal Regulations Patient History Date of Service: 10/04/20 Reason for admission: DKA History of Present Illness: 25yo M, PMH: Type 1 DM, presents to ED for 2nd time in <24 hrs, due to worsening nausea, vomiting, and severe abominal pain. Pt presented last night for similar, had CT consistent with mild colitis and was discharged home on cipro & flagyl. He got home and symptoms worsened, so he returned. He reports severe pain, emesis was thick / mucus and thinks there may be some blood specks, BM yesterday without blood. Symptoms have been ongoing for ~2 days and worsening. He is extremely thirsty and was found drinking from sink. He otherwise cannot provide a complete ROS at this time due to the amount of pain. He states he is having pain - points to periumbilical region and feels it in his back as well. He has not taken his insulin in the last day at least. Workup in ED - pt found to be in DKA, glc > 500, A, leukocytosis. Pending abd x-ray. he was given 1L NS bolus by EMS and receiving a 2nd bolus now. Allergies No Known Allergies Allergy (Verified 01/02/14 01:08) Home Medications: Hum Insulin NPH/Reg Insulin Hm [Humulin 70-30 Vial] 0 units SQ SEECOM 08/15/16 NPH, Human Insulin Isophane [Humulin N] 10 units SQ BEDTIME 08/15/16 Ondansetron HCl [Zofran] 4 mg PO Q4HR #28 tablet 07/01/17 - Past Medical/Surgical History Diabetic: Yes -: Diabetes mellitus type 1 -: Asthma -: Poor compliance with medication and follow up -: kidney infection Past Surgical History: Unable to obtain Psychosocial/ Personal History: He is to for years, has 2 children, he does not work. - Social History Smoking Status: Never smoker Alcohol use: Yes CD- Drugs: No Caffeine use: Yes Place of Residence: Home Review of Systems is unable to be obtained Physical Examination - Studies Laboratory Data (last 24 hrs) 10/04/20 07:00: WBC 17.70 H D, Hgb 10.7 L, Hct 34.9 L, Plt Count 364 10/04/20 07:00: Sodium 143, Potassium 4.1, BUN 22 H, Creatinine 1.05, Glucose 564 H*, Total Bilirubin 0.7, AST 81 H, ALT 54, Alkaline Phosphatase 173 H, Lipase 37 L Assessment and Plan - Advance Directives Does patient have a Living Will: No Does patient have a Durable POA for Healthcare: No Physician Review Additional Text: Physical Exam: Gen: moderate-severe distress - in pain, hunched over on bed, not wanting to talk "can't concentrate because of pain" HEENT: normal conjunctiva, sclera anicteric, PERRL CV: regular rate and rhythm, no murmur Pulm: Clear bilaterally, nonlabored Abd: soft, moderate TTP in epigastrium/periumbilical region, no CVA tenderness Ext: no edema, no rash Neuro: AAOx3, moves all extremities, not participating with exam secondary to pain Problem List anion gap metabolic acidosis due to DKA, h/o Type 1 diabetes Colitis gastroparesis -admit to ICU -IVF, insulin drip, q4h BMP, 1h glucose checks -dilaudid for pain -NG tube given nausea and h/o gastroparesis -obtain UA, Ruiz -CT reviewed from yesterday - possible mild colitis -lipase WNL, do not suspect pancreatits at this time -ativan ordered x1 -KUB ordered VTE: lovenox Code: full Dispo: anticipate hospitalization >2 days, dc home once improved Time Spent Managing Pts Care (In Minutes): 60
[2020-10-04] MEDS ORDERED: NACHLORIDE 0.45% 1,000 ML with POTASSIUM CL 20 MEQ IV SCH ×2 (10:00)
[2020-10-04 10:03] LABS: BUN Blood Urea Nitrogen 22 mg/dL (7-18); Bicarbonate 22 mmol/L (21-32); Glucose Level 339 mg/dL (74-106); Potassium 3.8 mmol/L (3.5-5.1); Sodium Level 148 mmol/L (136-145)
[2020-10-04 11:24] LABS: Potassium 3.7 mmol/L (3.5-5.1)
[2020-10-04] MEDS ORDERED: PIPER/TAZO/NS 3.375gm 3.375 GM/100 ML BAG IV SCH (12:00)
[2020-10-04 12:33] VITALS: TEMP 97.5; O2SAT 100
[2020-10-04 12:36] VITALS: BP 106/66
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
== END 2020-10-04 19:00 | disposition left against medical advice (07) | DRG 639 ==
LOC: ER 05:58 → ERHOLD 08:32
PROVIDERS: ADMIT Hospitalist; ATTEND Hospitalist
DX: E10.10 Type 1 diabetes mellitus with ketoacidosis without coma (principal); E10.43 Type 1 diabetes mellitus with diabetic autonomic (poly)neuropathy; K31.84 Gastroparesis; K52.9 Noninfective gastroenteritis and colitis, unspecified; Z90.49 Acquired absence of other specified parts of digestive tract; Z91.14 Patient's other noncompliance with medication regimen; Z79.4 Long term (current) use of insulin; Z79.899 Other long term (current) drug therapy; Z56.0 Unemployment, unspecified; Z53.29 Procedure and treatment not carried out because of patient's decision for other reasons
CPT/HCPCS: 0240U; 36415; 74177; 80048; 80076; 81003; 81015; 82805; 82947; 83605; 83690; 85025; 96361; 96365; 96375; 99284; 99285; J1170; J2405; J2550; J3010; J3480; J7030; Q9967